=== PATIENT | female | born 1985 | race Caucasian/White ===

== ENCOUNTER 2016-07-23 11:29 | Inpatient (IN) | payer SELFPAY ==
[~2016-07-23] VITALS: Ht 152.4 cm; Wt 141.0 kg
[2016-07-23] MEDS ORDERED: morphine 4 MG/ML VIAL IV STA (13:40)
[2016-07-23] MEDS ORDERED: ONDANSETRON 4 MG INJ IV STA (13:40)
[2016-07-23] MEDS ORDERED: AZTREONAM 1 GM/NS (PMX) 50 ML IVPB ONE (14:00)
[2016-07-23] MEDS ORDERED: VANCOMYCIN 1 GM (PMX) 250 ML IVPB SCH (14:00)
[2016-07-23 14:28] LABS: HEMATOCRIT 39.5 % (37.0-47.0); HEMOGLOBIN 13.3 g/dl (12.0-16.0); MEAN CORPUSCULAR HEMOGLOBIN 29.2 pg (29.0-33.0); MEAN CORPUSCULAR HGB CONC 33.7 g/dl (32.0-37.0); MEAN CORPUSCULAR VOLUME 86.5 fl (82.0-101.0); MEAN PLATELET VOLUME 8.7 fl (7.4-10.4); PLATELET COUNT 193 10^3/UL (140-440); RED BLOOD COUNT 4.56 10^6/ul (4.20-5.40); RED CELL DISTRIBUTION WIDTH 14.3 % (11.5-14.5); UNCORRECTED WBC 22.2 10^3/ul (4.8-10.8); WHITE BLOOD COUNT 22.2 10^3/ul (4.8-10.8)
[2016-07-23 14:37] LABS: CONDITION 1; LH ANALYZER COMMENTS 1; SUSPECT 1
[2016-07-23 14:49] LABS: POTASSIUM 3.5 mmol/L (3.5-5.1)
[2016-07-23 14:52] LABS: CREATININE 3.14 mg/dl (0.44-1.00)
[2016-07-23 14:53] LABS: CALCIUM 8.2 mg/dl (8.4-10.2)
[2016-07-23] MEDS ORDERED: ACETAMINOPHEN 325 MG TAB PO PRN (15:30)
[2016-07-23] MEDS ORDERED: DIPHTH/TET/ACEL PERTUSS (ADULT) 0.5 ML VIAL IM* ONE (15:30)
[2016-07-23] MEDS ORDERED: ONDANSETRON 4 MG INJ IV PRN (15:30)
--- NOTE | 2016-07-23 15:49 | RADRPT ---
PROCEDURE: US Lower extremity Venous. CLINICAL INDICATION: Right leg pain TECHNIQUE: Multiple sonographic images of the right lower extremity deep venous system was obtaine d utilizing grayscale, color-flow, compressive sonography and doppler imaging with augmentation. Th e images were reviewed on a PACS workstation. COMPARISON: None. FINDINGS: There is very limited visualization of the right mid and distal superficial femoral vein due to chel ent body habitus. The right peroneal vein was not visualized. There is normal compressibility and flow within the right common femoral, proximal superficial femor al, posterior tibial and popliteal veins. RPTAT: AA IMPRESSION: No gross sonographic evidence for deep venous thrombosis. Limited visualization of the right mid and distal superficial femoral vein due to patient body habit us. Right peroneal vein not visualized. .Supa Soria MD, Date Time Electronically viewed and signed by .Supa Soria MD, MD on 07/23/2016 15:49 .S/
[2016-07-23 16:04] LABS: LYMPHOCYTES # 0.9 10^3/ul (0.8-2.9); MONOCYTE # 0.9 10^3/ul (0.3-0.9); NEUTROPHIL # 16.4 10^3/ul (1.6-7.5)
--- NOTE | 2016-07-23 16:52 | ERA ---
ER Documentation Chief Complaint Date/Time DATE: 07/23/16 TIME: 16:50 Chief Complaint right lower leg redness and swelling no trauma. no fevers HPI Patient is a 31-year-old female with no medical problems who presents with right leg redness and rash. The symptoms started 1 week ago after she cut the lateral side of her right leg. She started having redness around the area and then pain in her right inner thigh. She tried tramadol and ibuprofen. She had fever a few days ago but none today. She does not currently have a primary doctor. She has had no antibiotics for this as of yet. ROS All systems reviewed and are negative except as per history of present illness. Allergies Allergies: Coded Allergies: Amoxicillin (Verified Allergy, 07/23/16) PMhx/Soc Medical and Surgical Hx: pt denies Medical Hx, pt denies Surgical Hx Hx Alcohol Use: No Hx Substance Use: No Hx Tobacco Use: No Smoking Status: Never smoker FmHx Family History: diabetes Physical Exam Vitals Vital Signs Date Time Temp Pulse Resp B/P Pulse Ox O2 Delivery O2 Flow Rate FiO2 07/23/16 11:38 98.6 94 22 116/88 97 Physical Exam Const: Mild distress Head: Atraumatic Eyes: Normal Conjunctiva ENT: Normal External Ears, Nose and Mouth. Neck: Full range of motion..~ No meningismus. Resp: Clear to auscultation bilaterally Cardio: Regular rate and rhythm, no murmurs Abd: Soft, non tender, non distended. Normal bowel sounds Skin: Significant cellulitis of the right lower extremity with 2 areas of blister formation to the right lateral leg, warm to touch Back: No midline or flank tenderness Ext: No cyanosis, or edema Neur: Awake and alert Psych: Normal Mood and Affect Result Diagram: 07/23/16 1414 07/23/16 1414 Results 24 hrs Laboratory Tests Test 07/23/16 14:14 Anion Gap 21 Band Neutrophils % 18.0% Basophils # 10^3/ul Basophils % % Blood Urea Nitrogen 37mg/dl Calcium Level 8.2mg/dl Carbon Dioxide Level 19mmol/L Chloride Level 96mmol/L Creatinine 3.14mg/dl Eosinophils # 10^3/ul Eosinophils % % Glucose Level 100mg/dl Hematocrit 39.5% Hemoglobin 13.3g/dl Lymphocytes # 0.910^3/ul Lymphocytes % 4.0% Mean Corpuscular Hemoglobin 29.2pg Mean Corpuscular Hemoglobin Concent 33.7g/dl Mean Corpuscular Volume 86.5fl Mean Platelet Volume 8.7fl Monocytes # 0.910^3/ul Monocytes % 4.0% Neutrophils # 16.410^3/ul Neutrophils % 74.0% Nucleated Red Blood Cells # 10^3/ul Nucleated Red Blood Cells % /100WBC Platelet Count 40592^3/UL Potassium Level 3.5mmol/L Red Blood Count 4.5610^6/ul Red Cell Distribution Width 14.3% Sodium Level 132mmol/L White Blood Count 22.210^3/ul Current Medications Medications (Trade) Dose Ordered Sig/Deana Route PRN Reason Start Time Stop Time Status Last Admin Dose Admin Morphine Sulfate (morphine) 4 mg ONCE STAT IV 07/23/16 13:40 07/23/16 13:42 DC 07/23/16 14:23 Ondansetron HCl 4 mg 4 mg ONCE STAT IV 07/23/16 13:40 07/23/16 13:42 DC 07/23/16 14:23 Vancomycin HCl 250 ml @ 125 mls/hr ONCE IVPB 07/23/16 14:00 07/23/16 15:59 DC 07/23/16 15:44 Aztreonam (Azactam 1gm/NS (Pmx)) 50 ml @ 100 mls/hr ONCE ONCE IVPB 07/23/16 14:00 07/23/16 14:29 DC 07/23/16 14:24 Diphtheria/ Tetanus/Acell Pertussis (Adacel) 0.5 ml ONCE ONCE IM* 07/23/16 15:30 07/23/16 15:31 DC 07/23/16 15:45 Ondansetron HCl (Zofran Inj) 4 mg BRIDGE ORDER PRN IV NAUSEA AND/OR VOMITING 07/23/16 15:30 07/24/16 15:29 Acetaminophen (Tylenol Tab) 650 mg ER BRIDGE PRN PO MILD PAIN/FEVER 07/23/16 15:30 07/24/16 15:29 Procedures/MDM Ultrasound of the right lower extremity shows no obvious DVT per radiology. Patient is a 31-year-old female who presents with right lower extremity cellulitis. Ultrasound was negative for DVT. Her laboratory studies show acute renal failure as well. She has never been here before and does not have a primary doctor and therefore I will admit the patient to the panel team. I spoke with Dr. Dominguez. At this point the patient has normal vital signs and is otherwise well-appearing and I doubt sepsis. However given the significant cellulitis with blister formation I do believe that inpatient admission is appropriate. The patient will need IV antibiotics. The patient was given vancomycin and aztreonam as she has allergy to amoxicillin. Departure Diagnosis: Primary Impression: Cellulitis Qualified Code: L03.115 - Cellulitis of right lower extremity Additional Impressions: ARF (acute renal failure) Qualified Code: N17.9 - Acute renal failure, unspecified acute renal failure type Swelling Condition: MATT Gill MD Jul 23, 2016 16:52
[2016-07-23] MEDS ORDERED: VANCOMYCIN IV PER PHARMACY XX SCH (17:00)
[2016-07-23] MEDS ORDERED: NACL 0.9% 3 ML SYG IV SCH (17:00)
[2016-07-23] MEDS ORDERED: DOCUSATE SODIUM 100 MG CAP PO PRN (17:00)
[2016-07-23] MEDS ORDERED: HYDROCODONE/APAP (5/325) TAB PO PRN (17:00)
[2016-07-23] MEDS ORDERED: PIPER-TAZO 3.375 GM IV (PMX) 100 ML IVPB SCH (18:00)
--- NOTE | 2016-07-23 18:36 | RADRPT ---
PROCEDURE: Noncontrast CT examination of the right leg CLINICAL INDICATION: Lesion at the lateral right leg. TECHNIQUE: Noncontrast CT examination of the right leg, with axial, sagittal and coronal reformatt ed images. CTDI: 18.47 mGy and DLP: 988.33 mGy-cm. COMPARISON: Right lower extremity ultrasound dated today, earlier in the day. FINDINGS: Fluid collection projects over the mid to lower lateral right leg, measuring 53 x 49 x 19 mm, otherw ise nonspecific. This may arise within the scan. There is no evident abscess. This fluid collecti on does not involve the subcutaneous tissues, although the subcutaneous tissues demonstrate edema an d scattered mild fluid from the popliteal fossa to the ankle. Partially visualized small right knee joint effusion. There is edema over the dorsum of the foot. No acute fracture or dislocation. IMPRESSION: 1. Fluid collection projects over the mid to lower lateral right leg, measuring 53 mm. 2. This appears to arise from the scan, and does not involve the subcutaneous tissues. 3. There is no evident abscess. 4. Nevertheless, the subcutaneous tissues over the right leg demonstrate edema and mild scattered f luid. RPTAT: UU Physician Oneil Date Time Electronically viewed and signed by Physician Oneil on 07/23/2016 18:36 RS/
[2016-07-23 18:51] VITALS: TEMP 97.5
[2016-07-23 19:34] VITALS: BP 117/54; RESP 18
[2016-07-23] MEDS ORDERED: VANCOMYCIN 1 GM in NS 250 ML IVPB ONE (20:00)
[2016-07-23] MEDS: HEPARIN 5,000 UNIT/0.5 ML SYG SC SCH (21:31)
[2016-07-23] MEDS: SOD CHLORIDE 0.45% 1,000 ML IV SCH (21:40)
[2016-07-23] MEDS: morphine 2 MG INJ IV PRN (23:03)
[2016-07-24] MEDS: AZTREONAM 0.5 GM in SOD CHLORIDE 0.9% 50 ML IV SCH ×2 (00:09→09:00)
[2016-07-24] MEDS: ACETAMINOPHEN 325 MG TAB PO PRN ×2 (00:09→08:25)
[2016-07-24] MEDS: SOD CHLORIDE 0.45% 1,000 ML IV SCH ×2 (00:49→08:23)
--- NOTE | 2016-07-24 03:14 | HP ---
DATE OF ADMISSION: 07/23/2016 CHIEF COMPLAINT: Right leg pain. HISTORY OF PRESENT ILLNESS: The patient is a 31-year-old female with a history of morbid obesity, o therwise no medical history. The patient presents with several days of progressively worsening righ t lower extremity pain and redness as well as swelling. The patient states that she noticed a cut o n her leg a few days ago. She does not know how she got the cut. She denies any falls or spider bi isaak. She states that since then she has been getting progressively worsening redness and swelling a nd it has become difficult to ambulate. She also reports having some pustules in the right lower ex tremity. She denies having any prior episodes of such symptoms in the past. She has no other compl aints at this time. PAST MEDICAL HISTORY: Morbid obesity, otherwise negative. PAST SURGICAL HISTORY: Denies. HOME MEDICATIONS: None reported. ALLERGIES: NO KNOWN DRUG ALLERGIES. FAMILY HISTORY: Multiple family members with cancer. SOCIAL HISTORY: Denies any alcohol, tobacco, or drug abuse. REVIEW OF SYSTEMS: A 12-point review of systems negative except for that as in HPI. PHYSICAL EXAMINATION: VITAL SIGNS: Temp is 98.6, pulse is 94, respiratory rate is 20, BP 116/88, saturation is 97% on vera m air. GENERAL: No acute distress, alert and oriented. HEENT: Normocephalic, atraumatic. CHEST: Clear to auscultation. CARDIOVASCULAR: Regular rate and rhythm. ABDOMEN: Nondistended, nontender, soft, obese. EXTREMITIES: No clubbing, cyanosis, or edema in the left lower extremity. Right extremity is notab le for erythema and tenderness to palpation with blisters noted as well as multiple scratch penn. LABORATORIES: White count is 22.2, hemoglobin is 15.3, platelets are 193. Chemistry: Sodium is 13 2, chloride is 96, carbon dioxide 19, anion gap is 21, BUN is 37, creatinine is 2.14, calcium is 8.2 . DIAGNOSTICS: Extremity venous study shows no gross evidence of DVT. ASSESSMENT AND PLAN: 1. Sepsis secondary to right lower extremity cellulitis. Start the patient on broad spectrum antib iotics. We will obtain an ID consultation with Dr. Love. We will check a lactic acid level. We will give IV fluids and we will get a CT scan of the right lower extremity to rule out any abscess. 2. Acute versus chronic kidney disease. The patient's baseline creatinine is not known. The patie nt has an elevated creatinine, could be secondary to underlying sepsis. We will treat with IV fluid s. We will get a renal consultation. We will follow up on creatinine in the a.m. 3. Anion gap metabolic acidosis, possibly secondary to lactic acidosis from sepsis. We will check a lactic acid level. 4. Hyponatremia, possibly secondary to dehydration. We will treat with IV fluids. 5. Morbid obesity. The patient will need to be advised on lifestyle changes when condition improve s. 6. Prophylaxis. Heparin. Dictated By: EDI DUFFY MD BS/NTS Conf#: [id number] DID#: [id number] CC: BRYANT LOVE MD; RYAN BROWN;*End*
[2016-07-24 06:55] LABS: ALBUMIN 2.7 g/dl (3.3-4.9)
[2016-07-24 06:56] LABS: CHLORIDE 95 mmol/L (97-110); POTASSIUM 3.3 mmol/L (3.5-5.1); SODIUM 131 mmol/L (135-144)
[2016-07-24 06:58] LABS: ANION GAP 16 (8-16); CARBON DIOXIDE 23 mmol/L (21-31); CHOLESTEROL 129 mg/dl (100-200); CREATININE 2.96 mg/dl (0.44-1.00)
[2016-07-24 06:59] LABS: ALANINE AMINOTRANSFERASE 31 IU/L (13-69); ALBUMIN/GLOBULIN RATIO 0.77; ALKALINE PHOSPHATASE 113 IU/L (42-121); ASPARTATE AMINO TRANSFERASE 32 IU/L (15-46); BLOOD UREA NITROGEN 38 mg/dl (7-20); GLUCOSE 78 mg/dl (70-220); PHOSPHORUS 3.4 mg/dl (2.5-4.9); TOTAL PROTEIN 6.2 g/dl (6.1-8.1); TRIGLYCERIDES 208 mg/dl (0-149)
[2016-07-24 07:00] LABS: CALCIUM 7.6 mg/dl (8.4-10.2); CHOL/HDL RATIO 9.9 RATIO; HDL CHOLESTEROL 13 mg/dl (34-82); MAGNESIUM 1.6 mg/dl (1.7-2.5)
--- NOTE | 2016-07-24 07:15 | CONS ---
DATE OF ADMISSION: 07/23/2016 DATE OF CONSULTATION: 07/23/2016 TYPE OF CONSULTATION: Infectious Disease REASON FOR CONSULTATION: Antibiotic management. HISTORY OF PRESENT ILLNESS: The patient is a 31-year-old female with no previous medical history of significance who comes in now with right lower extremity redness and swelling. Her symptoms began 1 week ago after she cut the lateral side of her right leg. She started having redness around the a keya and then pain in the right inner thigh. She tried tramadol and ibuprofen. She had fever a few days ago. She has had no antibiotics for this at this time. ALLERGIES: SHE IS ALLERGIC TO AMOXICILLIN. PAST MEDICAL HISTORY: Operations as outlined. FAMILY HISTORY: Noncontributory. She does have a history of diabetes in the family. SOCIAL HISTORY: She does not smoke, drink or abuse drugs. ALLERGIES: NONE TO PENICILLIN, SULFA OR FOODS. MEDICATIONS: Per chart. REVIEW OF SYSTEMS: As per HPI. PHYSICAL EXAMINATION: GENERAL: The patient is a well-developed, well-nourished female, alert, responsive, in no acute dis tress. She has some mild distress. VITAL SIGNS: Stable. She is afebrile. SKIN: Without generalized rash. HEENT: Within normal limits. NECK: Supple. LYMPH NODES: None palpable. CHEST: Decreased breath sounds at the bases. HEART: Without murmur or gallop. ABDOMEN: Soft, nontender, without organosplenomegaly or masses. EXTREMITIES: Without cyanosis, clubbing, or edema. She has right lower extremity has 2 areas of bl ister formation on the lateral aspect of the right lower extremity. It is warm to the touch and has significant cellulitis. RECTAL AND GENITAL: Deferred. NEUROLOGIC: No focal neurological abnormalities. ANCILLARY LABORATORY DATA: White count 22.2, H and H of 13.3 and 39.5, platelet count 193,000. BUN and creatinine 37/3.14. She was started on vancomycin and also received aztreonam and piperacillin. She is now on vancomyci n and aztreonam. As noted, SHE IS ALLERGIC TO AMOXICILLIN. IMAGING STUDIES: A CT scan of the right lower extremity shows a fluid collection projects over the mid to lower lateral right leg measuring 53 mm which is about 2 inches. This appears to arise from the skin, does not involve the subcutaneous tissues. There is no evident abscess, but there is albert a and mild scattered fluid. IMPRESSION AND PLAN: I concur with the use of vancomycin and aztreonam. She should have her right leg elevated. I will dictate my findings to the hospitalist. Dictated By: BRYANT LOVE MD, JD/HANNY Conf#: [id number] DID#: [id number]
[2016-07-24 07:24] VITALS: BP 139/85; RESP 18
[2016-07-24 07:29] LABS: T3 UPTAKE 48.6 % (23.5-40.5)
[2016-07-24 08:09] VITALS: BP 119/58; RESP 18
[2016-07-24] MEDS: HEPARIN 5,000 UNIT/0.5 ML SYG SC SCH ×2 (08:24→20:13)
[2016-07-24] MEDS: morphine 2 MG INJ IV PRN (08:26)
--- NOTE | 2016-07-24 09:39 | CONS ---
Date/Time of Note Date/Time of Note DATE: 07/24/16 TIME: 09:38 Consultation Date/Type/Reason Admit Date/Time Jul 23, 2016 at 15:05 Date of Consultation: Jul 24, 2016 Social History Smoking Status: Current every day smoker Exam/Review of Systems Vital Signs Vitals Vital Signs Date Time Temp Pulse Resp B/P Pulse Ox O2 Delivery O2 Flow Rate FiO2 07/24/16 08:09 98.1 96 18 119/58 96 07/23/16 18:51 Room Air Intake and Output 07/23/16 07/23/16 07/24/16 15:00 23:00 07:00 Intake Total 1100 ml Balance 1100 ml Results Result Diagram: 07/23/16 1414 07/24/16 0539 Results 24 hrs Laboratory Tests Test 07/23/16 14:14 07/23/16 20:46 07/24/16 05:39 07/24/16 07:49 Anion Gap 21 H 16 Band Neutrophils % 18.0 H Basophils # Basophils % Blood Urea Nitrogen 37 H 38 H Calcium Level 8.2 L 7.6 L Carbon Dioxide Level 19 L 23 Chloride Level 96 L 95 L Creatinine 3.14 H 2.96 H Eosinophils # Eosinophils % Glucose Level 100 78 Hematocrit 39.5 Hemoglobin 13.3 Lymphocytes # 0.9 Lymphocytes % 4.0 L Mean Corpuscular Hemoglobin 29.2 Mean Corpuscular Hemoglobin Concent 33.7 Mean Corpuscular Volume 86.5 Mean Platelet Volume 8.7 Monocytes # 0.9 Monocytes % 4.0 Neutrophils # 16.4 H Neutrophils % 74.0 Nucleated Red Blood Cells # Nucleated Red Blood Cells % Platelet Count 193 Potassium Level 3.5 3.3 L Red Blood Count 4.56 Red Cell Distribution Width 14.3 Sodium Level 132 L 131 L White Blood Count 22.2 H Lactic Acid Level 1.3 1.1 Alanine Aminotransferase (ALT/SGPT) 31 Albumin 2.7 L Albumin/Globulin Ratio 0.77 Alkaline Phosphatase 113 Aspartate Amino Transf (AST/SGOT) 32 Cholesterol Level 129 Cholesterol/HDL Ratio 9.9 Direct Bilirubin 0.00 Free Thyroxine Index 2.77 Globulin 3.50 H HDL Cholesterol 13 L HIV (1&2) Antibody NEGATIVE Hemoglobin A1c 5.2 Indirect Bilirubin 0.0 LDL Cholesterol, Calculated 74 Magnesium Level 1.6 L Phosphorus Level 3.4 Thyroxine (T4) 5.7 Total Bilirubin 0.0 L Total Protein 6.2 Triglycerides Level 208 H Triiodothyronine (T3) Uptake 48.6 H Medications Medications Current Medications Sodium Chloride (1/2 NS) 1,000 ml @ 125 mls/hr Q8H IV Last administered on 07/24 08:23; Admin Dose 125 MLS/HR; Start 07/23/16 at 16:49 Ondansetron HCl (Zofran Inj) 4 mg Q6H PRN IV NAUSEA AND/OR VOMITING; Start 07/23 at 17:00 Acetaminophen (Tylenol Tab) 650 mg Q6H PRN PO PAIN LEVEL 1-3 OR FEVER Last administered on 07/24/16 08:25; Admin Dose 650 MG; Start 07/23/16 at 17:00 Acetaminophen/ Hydrocodone Bitart ([place] (5/325)) 1 tab Q6H PRN PO MODERATE PAIN LEVEL 4-6 Last administered on 07/23/16 19:43; Admin Dose 1 TAB; Start 07/23 at 17:00 Morphine Sulfate (morphine) 2 mg Q4H PRN IV SEVERE PAIN LEVEL 7-10 Last administered on 07/24/16 08:26; Admin Dose 2 MG; Start 07/23/16 at 17:00 Docusate Sodium (Colace) 100 mg Q12H PRN PO CONSTIPATION; Start 07/23/16 at 17: 00 Zolpidem Tartrate (Ambien) 5 mg QHS PRN PO SLEEP; Start 07/23/16 at 17:00 Heparin Sodium (Porcine) 5000 unit 5,000 unit Q12 SC Last administered on 08:24; Admin Dose 5,000 UNIT; Start 07/23/16 at 21:00 Aztreonam/Sodium Chloride (Azactam/NS) 50 ml @ 100 mls/hr Q12 IV Last administered on 07/24/16 00:09; Admin Dose 100 MLS/HR; Start 07/23/16 at 23:00 Influenza Virus Vaccine (Fluzone) 0.5 ml ONCE ONCE IM* ; Start 07/25/16 at 09:00 ; Stop 07/25/16 at 09:01 ARIANNA CALDWELL MD Jul 24, 2016 09:39
--- NOTE | 2016-07-24 09:46 | PN ---
Date/Time of Note Date/Time of Note DATE: 07/24/16 TIME: 09:34 Assessment/Plan VTE Prophylaxis VTE Prophylaxis Intervention: heparin Lines/Catheters IV Catheter Type (from Nrs): Peripheral IV Assessment/Plan Assessment/Plan PROBLEMS: Sepsis secondary to right lower extremity cellulitis: No abscess on CT Acute renal insufficiency with likely underlying chronic kidney disease: improving Anion gap metabolic acidosis 2/2 #1 : resolved Morbid obesity BMI 60 Dyslipidemia Hypomagnesemia Hypocalcemia Hypokalemia Hyponatremia 2/2 dehydration from sepsis PLAN: Replace lytes Change IVF to NS Continue abx per ID / appreciate review Dietary consult / low cholesterol low fat and calorie controlled diet Fish oil for dyslipidemia Avoid Nephrotoxins if possible / Renally dose all meds / Serial labs / ? Nephrology consult Prophylaxis. Heparin. Subjective 24 Hr Interval Summary Free Text/Dictation Patient seen and examined. no new complaints Exam/Review of Systems Vital Signs Vitals Vital Signs Date Time Temp Pulse Resp B/P Pulse Ox O2 Delivery O2 Flow Rate FiO2 07/24/16 08:09 98.1 96 18 119/58 96 07/23/16 18:51 Room Air Intake and Output 07/23/16 07/23/16 07/24/16 15:00 23:00 07:00 Intake Total 1100 ml Balance 1100 ml Exam GENERAL: No acute distress, alert and oriented. HEENT: Normocephalic, atraumatic. CHEST: Clear to auscultation. CARDIOVASCULAR: Regular rate and rhythm. ABDOMEN: Nondistended, nontender, soft, obese. EXTREMITIES: No clubbing, cyanosis, or edema in the left lower extremity. Right extremity is notable for erythema and tenderness to palpation with blisters noted as well as multiple scratch penn. Results Result Diagram: 07/23/16 1414 07/24/16 0539 Results 24 hrs Laboratory Tests Test 07/23/16 14:14 07/23/16 20:46 07/24/16 05:39 07/24/16 07:49 Anion Gap 21 H 16 Band Neutrophils % 18.0 H Basophils # Basophils % Blood Urea Nitrogen 37 H 38 H Calcium Level 8.2 L 7.6 L Carbon Dioxide Level 19 L 23 Chloride Level 96 L 95 L Creatinine 3.14 H 2.96 H Eosinophils # Eosinophils % Glucose Level 100 78 Hematocrit 39.5 Hemoglobin 13.3 Lymphocytes # 0.9 Lymphocytes % 4.0 L Mean Corpuscular Hemoglobin 29.2 Mean Corpuscular Hemoglobin Concent 33.7 Mean Corpuscular Volume 86.5 Mean Platelet Volume 8.7 Monocytes # 0.9 Monocytes % 4.0 Neutrophils # 16.4 H Neutrophils % 74.0 Nucleated Red Blood Cells # Nucleated Red Blood Cells % Platelet Count 193 Potassium Level 3.5 3.3 L Red Blood Count 4.56 Red Cell Distribution Width 14.3 Sodium Level 132 L 131 L White Blood Count 22.2 H Lactic Acid Level 1.3 1.1 Alanine Aminotransferase (ALT/SGPT) 31 Albumin 2.7 L Albumin/Globulin Ratio 0.77 Alkaline Phosphatase 113 Aspartate Amino Transf (AST/SGOT) 32 Cholesterol Level 129 Cholesterol/HDL Ratio 9.9 Direct Bilirubin 0.00 Free Thyroxine Index 2.77 Globulin 3.50 H HDL Cholesterol 13 L HIV (1&2) Antibody NEGATIVE Hemoglobin A1c 5.2 Indirect Bilirubin 0.0 LDL Cholesterol, Calculated 74 Magnesium Level 1.6 L Phosphorus Level 3.4 Thyroxine (T4) 5.7 Total Bilirubin 0.0 L Total Protein 6.2 Triglycerides Level 208 H Triiodothyronine (T3) Uptake 48.6 H Medications Medications Current Medications Sodium Chloride (1/2 NS) 1,000 ml @ 125 mls/hr Q8H IV Last administered on 07/24 08:23; Admin Dose 125 MLS/HR; Start 07/23/16 at 16:49 Ondansetron HCl (Zofran Inj) 4 mg Q6H PRN IV NAUSEA AND/OR VOMITING; Start 07/23 at 17:00 Acetaminophen (Tylenol Tab) 650 mg Q6H PRN PO PAIN LEVEL 1-3 OR FEVER Last administered on 07/24/16 08:25; Admin Dose 650 MG; Start 07/23/16 at 17:00 Acetaminophen/ Hydrocodone Bitart ([place] (5/325)) 1 tab Q6H PRN PO MODERATE PAIN LEVEL 4-6 Last administered on 07/23/16 19:43; Admin Dose 1 TAB; Start 07/23 at 17:00 Morphine Sulfate (morphine) 2 mg Q4H PRN IV SEVERE PAIN LEVEL 7-10 Last administered on 07/24/16 08:26; Admin Dose 2 MG; Start 07/23/16 at 17:00 Docusate Sodium (Colace) 100 mg Q12H PRN PO CONSTIPATION; Start 07/23/16 at 17: 00 Zolpidem Tartrate (Ambien) 5 mg QHS PRN PO SLEEP; Start 07/23/16 at 17:00 Heparin Sodium (Porcine) 5000 unit 5,000 unit Q12 SC Last administered on 08:24; Admin Dose 5,000 UNIT; Start 07/23/16 at 21:00 Aztreonam/Sodium Chloride (Azactam/NS) 50 ml @ 100 mls/hr Q12 IV Last administered on 07/24/16 00:09; Admin Dose 100 MLS/HR; Start 07/23/16 at 23:00 Influenza Virus Vaccine (Fluzone) 0.5 ml ONCE ONCE IM* ; Start 07/25/16 at 09:00 ; Stop 07/25/16 at 09:01 Procedures Procedures PROCEDURE: Noncontrast CT examination of the right leg CLINICAL INDICATION: Lesion at the lateral right leg. TECHNIQUE: Noncontrast CT examination of the right leg, with axial, sagittal and coronal reformatted images. CTDI: 18.47 mGy and DLP: 988.33 mGy-cm. COMPARISON: Right lower extremity ultrasound dated today, earlier in the day. FINDINGS: Fluid collection projects over the mid to lower lateral right leg, measuring 53 x 49 x 19 mm, otherwise nonspecific. This may arise within the scan. There is no evident abscess. This fluid collection does not involve the subcutaneous tissues, although the subcutaneous tissues demonstrate edema and scattered mild fluid from the popliteal fossa to the ankle. Partially visualized small right knee joint effusion. There is edema over the dorsum of the foot. No acute fracture or dislocation. IMPRESSION: 1. Fluid collection projects over the mid to lower lateral right leg, measuring 53 mm. 2. This appears to arise from the scan, and does not involve the subcutaneous tissues. 3. There is no evident abscess. 4. Nevertheless, the subcutaneous tissues over the right leg demonstrate edema and mild scattered fluid. RPTAT: UU Physician Oneil Date Time Electronically viewed and signed by Physician Oneil on 07/23/2016 18:36 PROCEDURE: US Lower extremity Venous. CLINICAL INDICATION: Right leg pain TECHNIQUE: Multiple sonographic images of the right lower extremity deep venous system was obtained utilizing grayscale, color-flow, compressive sonography and doppler imaging with augmentation. The images were reviewed on a PACS workstation. COMPARISON: None. FINDINGS: There is very limited visualization of the right mid and distal superficial femoral vein due to patient body habitus. The right peroneal vein was not visualized. There is normal compressibility and flow within the right common femoral, proximal superficial femoral, posterior tibial and popliteal veins. RPTAT: AA IMPRESSION: No gross sonographic evidence for deep venous thrombosis. Limited visualization of the right mid and distal superficial femoral vein due to patient body habitus. Right peroneal vein not visualized. .Supa Soria MD, MD Date Time Electronically viewed and signed by .Supa Soria MD, MD on 07/23/2016 15: 49 .S/ CC: MATT SAINZ MD, BOLATITO M. Jul 24, 2016 09:46
[2016-07-24] MEDS ORDERED: MAGNESIUM SULFATE 2 GM/50 ML 50 ML IVPB ONE (10:00)
[2016-07-24 10:11] LABS: HEMATOCRIT 34.5 % (37.0-47.0); HEMOGLOBIN 11.5 g/dl (12.0-16.0); MEAN CORPUSCULAR HEMOGLOBIN 28.9 pg (29.0-33.0); MEAN CORPUSCULAR HGB CONC 33.3 g/dl (32.0-37.0); MEAN CORPUSCULAR VOLUME 86.7 fl (82.0-101.0); MEAN PLATELET VOLUME 11.1 fl (7.4-10.4); PLATELET COUNT 185 10^3/UL (140-440); RED BLOOD COUNT 3.98 10^6/ul (4.20-5.40); RED CELL DISTRIBUTION WIDTH 14.2 % (11.5-14.5); UNCORRECTED WBC 17.4 10^3/ul (4.8-10.8); WHITE BLOOD COUNT 17.4 10^3/ul (4.8-10.8)
[2016-07-24 10:15] LABS: MONOCYTE # 0.2 10^3/ul (0.3-0.9); NEUTROPHIL # 13.6 10^3/ul (1.6-7.5)
[2016-07-24] MEDS ORDERED: morphine 2 MG INJ IV ONE (11:00)
[2016-07-24] MEDS: SOD CHLORIDE 0.9% 1,000 ML IV SCH ×2 (11:17→20:08)
[2016-07-24] MEDS: POTASSIUM CHLORIDE (SR) 20 MEQ TAB PO SCH ×2 (11:19→14:46)
[2016-07-24] MEDS: FISH OIL 1,000 MG CAP PO SCH ×2 (11:20→20:07)
[2016-07-24] MEDS: HYDROCODONE/APAP (7.5/325) TAB PO PRN ×2 (11:20→18:33)
[2016-07-24] MEDS: FAMOTIDINE 20 MG TAB PO SCH (14:46)
[2016-07-24 20:29] VITALS: BP 118/58; RESP 16
[2016-07-24] MEDS: LEVOFLOXACIN 250MG/D5W (PMX) 50 ML IVPB SCH (22:00)
[2016-07-24] MEDS: metroNIDAZOLE 500 MG TAB PO SCH (22:00)
[2016-07-25] MEDS: HYDROCODONE/APAP (7.5/325) TAB PO PRN ×4 (02:18→17:54)
[2016-07-25] MEDS ORDERED: VANCOMYCIN 2 GM in SOD CHLORIDE 0.9% 500 ML IVPB SCH (05:00)
[2016-07-25] MEDS: metroNIDAZOLE 500 MG TAB PO SCH ×3 (05:40→21:20)
--- NOTE | 2016-07-25 06:05 | PN ---
DATE: 07/24/2016 SUBJECTIVE: No acute changes. The patient is alert, lying comfortably in bed. She is in no distre ss, afebrile, complaining of right lower extremity pain. LABORATORY DATA: WBC today 17.4, H and H 11.5 and 34.5, platelets 185, neutrophils 78, BUN 38, crea tinine 2.96. DIAGNOSTICS: Lower extremity CT revealed no evidence of abscess but fluid collection over the mid t o lower lateral right leg. Ultrasound of the right lower extremity revealed no evidence of DVT. ANTIMICROBIALS: The patient is on IV vancomycin and aztreonam. OBJECTIVE: GENERAL: This is a morbidly obese, well-developed, middle-aged white woman who is lying comfortably in bed. HEENT: Head atraumatic, normocephalic. Sclerae anicteric. Buccal mucosa pink. NECK: Obese. CHEST: Rise symmetrical. Breath sounds clear. HEART: S1, S2. ABDOMEN: Soft, bowel tones present. EXTREMITIES: With right lower extremity edema, blistering. ASSESSMENT: 1. Right lower extremity cellulitis, possible abscess. 2. Morbid obesity. 3. Systemic inflammatory response syndrome with low grade fevers and leukocytosis. 4. Acute kidney injury, possible chronic kidney disease. PLAN: We are going to change aztreonam to oral Levaquin and add Flagyl for anaerobic coverage. We will send blood cultures and urine culture and try to send culture of any drainage that she has from right lower extremity. The patient needs to be evaluated by podiatry. We will keep her right lowe r extremity elevated and also swab her nares for MRSA. Continue pain management. The above was dis cussed with patient at bedside. Dictated By: JEFF JENKINS JAVA LEAD for BRYANT LOVE MD NI/NTS Conf#: [id number] DID#: [id number]
[2016-07-25 08:16] VITALS: BP 97/41; RESP 23
[2016-07-25] MEDS: FISH OIL 1,000 MG CAP PO SCH ×2 (08:28→21:20)
[2016-07-25] MEDS: HEPARIN 5,000 UNIT/0.5 ML SYG SC SCH ×2 (08:34→21:43)
--- NOTE | 2016-07-25 08:47 | CONS ---
Date/Time of Note Date/Time of Note DATE: 07/25/16 TIME: 08:45 Consult Date/Type/Reason Admit Date/Time Jul 23, 2016 at 15:05 Initial Consult Date 07/24/16 Type of Consultation: nephro Subjective feels better good uop Objective Vital Signs Date Time Temp Pulse Resp B/P Pulse Ox O2 Delivery O2 Flow Rate FiO2 07/25/16 08:16 99.2 96 23 97/41 97 07/23/16 18:51 Room Air Intake and Output 07/24/16 07/24/16 07/25/16 15:00 23:00 07:00 Intake Total 915 ml 3870 ml 1100 ml Balance 915 ml 3870 ml 1100 ml Results/Medications Result Diagram: 07/24/16 0539 07/24/16 0539 Medications Current Medications Ondansetron HCl (Zofran Inj) 4 mg Q6H PRN IV NAUSEA AND/OR VOMITING; Start 07/23 at 17:00 Acetaminophen (Tylenol Tab) 650 mg Q6H PRN PO PAIN LEVEL 1-3 OR FEVER Last administered on 07/24/16 08:25; Admin Dose 650 MG; Start 07/23/16 at 17:00 Docusate Sodium (Colace) 100 mg Q12H PRN PO CONSTIPATION; Start 07/23/16 at 17: 00 Zolpidem Tartrate (Ambien) 5 mg QHS PRN PO SLEEP; Start 07/23/16 at 17:00 Heparin Sodium (Porcine) (Heparin (5000 Units/0.5 ml)) 5,000 unit Q12 SC Last administered on 07/25/16 08:34; Admin Dose 5,000 UNIT; Start 07/23/16 at 21:00 Influenza Virus Vaccine (Fluzone) 0.5 ml ONCE ONCE IM* ; Start 07/25/16 at 09:00 ; Stop 07/25/16 at 09:01 Fish Oil 1000 mg 1,000 mg BID PO Last administered on 07/25/16 08:28; Admin Dose 1,000 MG; Start 07/24/16 at 10:00 Sodium Chloride 1,000 ml @ 80 mls/hr [id number] IV Last administered on 07/24/16 20:08; Admin Dose 80 MLS/HR; Start 07/24/16 at 10:00 Vancomycin HCl/ Sodium Chloride (Vancocin/NS) 500 ml @ 125 mls/hr Q48H IVPB Last administered on 07/25/16 05:40; Admin Dose 125 MLS/HR; Start 07/25/16 at 05: 00 Morphine Sulfate (morphine) 4 mg Q4H PRN IV SEVERE PAIN LEVEL 7-10; Start at 13:00 Acetaminophen/ Hydrocodone Bitart ([place] (7.5-325)) 1 tab Q4H PRN PO PAIN LEVEL 4-6 Last administered on 07/25/16 08:28; Admin Dose 1 TAB; Start 07/24/16 at 11:00 Famotidine 20 mg 20 mg Q24H PO Last administered on 07/24/16 14:46; Admin Dose 20 MG; Start 07/24/16 at 14:00 Levofloxacin/ Dextrose (Levaquin 250 Mg/ D5W 50 ml (Pmx)) 50 ml @ 50 mls/hr Q24H IVPB Last administered on 07/24/16 22:00; Admin Dose 50 MLS/HR; Start 07/24 at 19:30 Metronidazole (Flagyl) 500 mg Q8 PO Last administered on 07/25/16 05:40; Admin Dose 500 MG; Start 07/24/16 at 22:00 Assessment/Plan Chief Complaint/Hosp Course 1. renal Failure- likely vasomotor nephropathy, component of NSaids, cont to improve, watch lytes, volume status, cont ivf, adjust meds. -awaiting urine lytes to calculate FeNa. 2. cellulitis- on iv abx, dose adjusted. Problems: ARIANNA CALDWELL MD Jul 25, 2016 08:46
[2016-07-25] MEDS ORDERED: INFLUENZA VIRUS VACCINE 0.5 ML (DISPENSING) IM* ONE (09:00)
[2016-07-25] MEDS: ACETAMINOPHEN 325 MG TAB PO PRN (10:27)
[2016-07-25] MEDS: SOD CHLORIDE 0.9% 1,000 ML IV SCH ×3 (11:00→23:30)
[2016-07-25] MEDS: NYSTATIN 30 GM POWDER BTL TOP SCH ×2 (12:30→21:21)
[2016-07-25] MEDS: FAMOTIDINE 20 MG TAB PO SCH (13:35)
[2016-07-25 14:17] LABS: BASOPHILS % 0.2 % (0.0-2.0); HEMATOCRIT 32.1 % (37.0-47.0); HEMOGLOBIN 10.8 g/dl (12.0-16.0); LYMPHOCYTES # 0.9 10^3/ul (0.8-2.9); LYMPHOCYTES % 5.2 % (15.0-51.0); MEAN CORPUSCULAR HEMOGLOBIN 29.1 pg (29.0-33.0); MEAN CORPUSCULAR HGB CONC 33.7 g/dl (32.0-37.0); MEAN CORPUSCULAR VOLUME 86.6 fl (82.0-101.0); MEAN PLATELET VOLUME 8.9 fl (7.4-10.4); MONOCYTE # 0.7 10^3/ul (0.3-0.9); MONOCYTES % 4.2 % (0.0-11.0); NEUTROPHIL # 15.7 10^3/ul (1.6-7.5); NEUTROPHILS % 90.4 % (39.0-77.0); PLATELET COUNT 198 10^3/UL (140-440); RED BLOOD COUNT 3.71 10^6/ul (4.20-5.40); RED CELL DISTRIBUTION WIDTH 15.4 % (11.5-14.5); UNCORRECTED WBC 17.3 10^3/ul (4.8-10.8); WHITE BLOOD COUNT 17.3 10^3/ul (4.8-10.8)
[2016-07-25 14:19] LABS: CONDITION 1; LH ANALYZER COMMENTS 1
[2016-07-25 14:24] LABS: POTASSIUM 3.4 mmol/L (3.5-5.1)
[2016-07-25 14:27] LABS: CALCIUM 7.9 mg/dl (8.4-10.2); CREATININE 2.36 mg/dl (0.44-1.00)
--- NOTE | 2016-07-25 18:21 | PN ---
Date/Time of Note Date/Time of Note DATE: 07/25/16 TIME: 18:20 Assessment/Plan VTE Prophylaxis VTE Prophylaxis Intervention: heparin Lines/Catheters IV [facility] Peripheral IV Urinary Cath still in place: No Assessment/Plan Assessment/Plan PROBLEMS: Sepsis secondary to right lower extremity cellulitis: No abscess on CT: improving Acute renal insufficiency with likely underlying chronic kidney disease: improving Anion gap metabolic acidosis 2/ #1 : resolved Morbid obesity BMI 60 Dyslipidemia Hypomagnesemia Hypocalcemia Hyponatremia Raiza vaginitis PLAN: Replace lytes Nephrology managing renal fxn / appreciate input Continue abx per ID / appreciate review / f/u cultures Dietary consult / low cholesterol low fat and calorie controlled diet Continue Fish oil for dyslipidemia Add nystatin and miconazole to regimen Avoid Nephrotoxins if possible / Renally dose all meds / Serial labs Prophylaxis. Heparin. Subjective 24 Hr Interval Summary Free Text/Dictation still with significant pain R leg c/o inner thigh rash and vulval itching Exam/Review of Systems Vital Signs Vitals Vital Signs Date Time Temp Pulse Resp B/P Pulse Ox O2 Delivery O2 Flow Rate FiO2 07/25/16 08:16 99.2 96 23 97/41 97 07/23/16 18:51 Room Air Intake and Output 07/24/16 07/24/16 07/25/16 14:59 22:59 06:59 Intake Total 915 ml 3820 ml 1150 ml Balance 915 ml 3820 ml 1150 ml Exam GENERAL: No acute distress, alert and oriented. HEENT: Normocephalic, atraumatic. CHEST: Clear to auscultation. CARDIOVASCULAR: Regular rate and rhythm. ABDOMEN: Nondistended, nontender, soft, obese. EXTREMITIES: No clubbing, cyanosis, or edema in the left lower extremity. Right extremity is notable for erythema and tenderness to palpation with blisters noted as well as multiple scratch penn. GENITOURINARY: macular erythematous rash on inner thigh and vulva Results Result Diagram: 07/25/16 1350 07/25/16 1350 Results 24 hrs Laboratory Tests Test 07/25/16 13:50 Anion Gap 10 # Basophils # 0.0 Basophils % 0.2 Blood Morphology Comment Blood Urea Nitrogen 31 H Calcium Level 7.9 L Carbon Dioxide Level 22 Chloride Level 101 Creatinine 2.36 H Eosinophils # 0.0 Eosinophils % 0.0 Glucose Level 95 Hematocrit 32.1 L Hemoglobin 10.8 L Lymphocytes # 0.9 Lymphocytes % 5.2 L Mean Corpuscular Hemoglobin 29.1 Mean Corpuscular Hemoglobin Concent 33.7 Mean Corpuscular Volume 86.6 Mean Platelet Volume 8.9 Monocytes # 0.7 Monocytes % 4.2 Neutrophils # 15.7 H Neutrophils % 90.4 H Nucleated Red Blood Cells # 0.0 Nucleated Red Blood Cells % 0.0 Platelet Count 198 Potassium Level 3.4 L Red Blood Count 3.71 L Red Cell Distribution Width 15.4 H Sodium Level 130 L White Blood Count 17.3 H Medications Medications Current Medications Ondansetron HCl (Zofran Inj) 4 mg Q6H PRN IV NAUSEA AND/OR VOMITING; Start 07/23 at 17:00 Acetaminophen (Tylenol Tab) 650 mg Q6H PRN PO PAIN LEVEL 1-3 OR FEVER Last administered on 07/25/16 10:27; Admin Dose 650 MG; Start 07/23/16 at 17:00 Docusate Sodium (Colace) 100 mg Q12H PRN PO CONSTIPATION; Start 07/23/16 at 17: 00 Zolpidem Tartrate (Ambien) 5 mg QHS PRN PO SLEEP; Start 07/23/16 at 17:00 Heparin Sodium (Porcine) (Heparin (5000 Units/0.5 ml)) 5,000 unit Q12 SC Last administered on 07/25/16 08:34; Admin Dose 5,000 UNIT; Start 07/23/16 at 21:00 Fish Oil 1000 mg 1,000 mg BID PO Last administered on 07/25/16 08:28; Admin Dose 1,000 MG; Start 07/24/16 at 10:00 Sodium Chloride 1,000 ml @ 80 mls/hr [id number] IV Last administered on 07/25/16 13:34; Admin Dose 80 MLS/HR; Start 07/24/16 at 10:00 Vancomycin HCl/ Sodium Chloride (Vancocin/NS) 500 ml @ 125 mls/hr Q48H IVPB Last administered on 07/25/16 05:40; Admin Dose 125 MLS/HR; Start 07/25/16 at 05: 00 Morphine Sulfate (morphine) 4 mg Q4H PRN IV SEVERE PAIN LEVEL 7-10; Start at 13:00 Acetaminophen/ Hydrocodone Bitart ([place] (7.5-325)) 1 tab Q4H PRN PO PAIN LEVEL 4-6 Last administered on 07/25/16 17:54; Admin Dose 1 TAB; Start 07/24/16 at 11:00 Famotidine 20 mg 20 mg Q24H PO Last administered on 07/25/16 13:35; Admin Dose 20 MG; Start 07/24/16 at 14:00 Levofloxacin/ Dextrose (Levaquin 250 Mg/ D5W 50 ml (Pmx)) 50 ml @ 50 mls/hr Q24H IVPB Last administered on 07/24/16 22:00; Admin Dose 50 MLS/HR; Start 07/24 at 19:30 Metronidazole (Flagyl) 500 mg Q8 PO Last administered on 07/25/16 13:35; Admin Dose 500 MG; Start 07/24/16 at 22:00 Nystatin (Nystatin Powder) 1 applic BID TOP ; Start 07/25/16 at 12:30; Stop 08/01 at 12:29 Miconazole Nitrate (Miconazole 2% Vag Cr) 1 applic HS VAG ; Start 07/25/16 at 21: 00; Stop 07/28/16 at 20:59 ALEX WALL Jul 25, 2016 18:21
--- NOTE | 2016-07-25 18:31 | CONS ---
Date/Time of Note Date/Time of Note DATE: 07/25/16 TIME: 18:28 Assessment/Plan Assessment/Plan Chief Complaint/Hosp Course SUBJECTIVE: No acute changes. The patient is alert, lying comfortably in bed. She has less pain, RLE erythema tracing down, no fevers ANTIMICROBIALS: The patient is on IV vancomycin Levaquin, Flagyl. OBJECTIVE: GENERAL: This is a morbidly obese, well-developed, middle-aged white woman who is lying comfortably in bed. HEENT: Head atraumatic, normocephalic. Sclerae anicteric. Buccal mucosa pink. NECK: Obese. CHEST: Rise symmetrical. Breath sounds clear. HEART: S1, S2. ABDOMEN: Soft, bowel tones present. EXTREMITIES: With right lower extremity edema, erythema and blistering. ASSESSMENT: 1. Right lower extremity cellulitis, possible abscess. 2. Morbid obesity. 3. Systemic inflammatory response syndrome with low grade fevers and leukocytosis. 4. Acute kidney injury, possible chronic kidney disease. PLAN: Stable, will keep on current abd, await for cx's, keep RLE elevated, pending podiatry eval [facility] staff Problems: Consultation Date/Type/Reason Admit Date/Time Jul 23, 2016 at 15:05 Initial Consult Date 07/24/16 Type of Consultation: ID Exam/Review of Systems Vital Signs Vitals Vital Signs Date Time Temp Pulse Resp B/P Pulse Ox O2 Delivery O2 Flow Rate FiO2 07/25/16 08:16 99.2 96 23 97/41 97 07/23/16 18:51 Room Air Intake and Output 07/24/16 07/24/16 07/25/16 15:00 23:00 07:00 Intake Total 915 ml 3870 ml 1100 ml Balance 915 ml 3870 ml 1100 ml Results Result Diagram: 07/25/16 1350 07/25/16 1350 Results 24 hrs Laboratory Tests Test 07/25/16 13:50 Anion Gap 10 # Basophils # 0.0 Basophils % 0.2 Blood Morphology Comment Blood Urea Nitrogen 31 H Calcium Level 7.9 L Carbon Dioxide Level 22 Chloride Level 101 Creatinine 2.36 H Eosinophils # 0.0 Eosinophils % 0.0 Glucose Level 95 Hematocrit 32.1 L Hemoglobin 10.8 L Lymphocytes # 0.9 Lymphocytes % 5.2 L Mean Corpuscular Hemoglobin 29.1 Mean Corpuscular Hemoglobin Concent 33.7 Mean Corpuscular Volume 86.6 Mean Platelet Volume 8.9 Monocytes # 0.7 Monocytes % 4.2 Neutrophils # 15.7 H Neutrophils % 90.4 H Nucleated Red Blood Cells # 0.0 Nucleated Red Blood Cells % 0.0 Platelet Count 198 Potassium Level 3.4 L Red Blood Count 3.71 L Red Cell Distribution Width 15.4 H Sodium Level 130 L White Blood Count 17.3 H Medications Medications Current Medications Ondansetron HCl (Zofran Inj) 4 mg Q6H PRN IV NAUSEA AND/OR VOMITING; Start 07/23 at 17:00 Acetaminophen (Tylenol Tab) 650 mg Q6H PRN PO PAIN LEVEL 1-3 OR FEVER Last administered on 07/25/16 10:27; Admin Dose 650 MG; Start 07/23/16 at 17:00 Docusate Sodium (Colace) 100 mg Q12H PRN PO CONSTIPATION; Start 07/23/16 at 17: 00 Zolpidem Tartrate (Ambien) 5 mg QHS PRN PO SLEEP; Start 07/23/16 at 17:00 Heparin Sodium (Porcine) (Heparin (5000 Units/0.5 ml)) 5,000 unit Q12 SC Last administered on 07/25/16 08:34; Admin Dose 5,000 UNIT; Start 07/23/16 at 21:00 Fish Oil 1000 mg 1,000 mg BID PO Last administered on 07/25/16 08:28; Admin Dose 1,000 MG; Start 07/24/16 at 10:00 Sodium Chloride 1,000 ml @ 80 mls/hr [id number] IV Last administered on 07/25/16 13:34; Admin Dose 80 MLS/HR; Start 07/24/16 at 10:00 Vancomycin HCl/ Sodium Chloride (Vancocin/NS) 500 ml @ 125 mls/hr Q48H IVPB Last administered on 07/25/16 05:40; Admin Dose 125 MLS/HR; Start 07/25/16 at 05: 00 Morphine Sulfate (morphine) 4 mg Q4H PRN IV SEVERE PAIN LEVEL 7-10; Start at 13:00 Acetaminophen/ Hydrocodone Bitart ([place] (7.5-325)) 1 tab Q4H PRN PO PAIN LEVEL 4-6 Last administered on 07/25/16 17:54; Admin Dose 1 TAB; Start 07/24/16 at 11:00 Famotidine 20 mg 20 mg Q24H PO Last administered on 07/25/16 13:35; Admin Dose 20 MG; Start 07/24/16 at 14:00 Levofloxacin/ Dextrose (Levaquin 250 Mg/ D5W 50 ml (Pmx)) 50 ml @ 50 mls/hr Q24H IVPB Last administered on 07/24/16 22:00; Admin Dose 50 MLS/HR; Start 07/24 at 19:30 Metronidazole (Flagyl) 500 mg Q8 PO Last administered on 07/25/16 13:35; Admin Dose 500 MG; Start 07/24/16 at 22:00 Nystatin (Nystatin Powder) 1 applic BID TOP ; Start 07/25/16 at 12:30; Stop 08/01 at 12:29 Miconazole Nitrate (Miconazole 2% Vag Cr) 1 applic HS VAG ; Start 07/25/16 at 21: 00; Stop 07/28/16 at 20:59 JEFF JENKINS ANODISER Jul 25, 2016 18:31
[2016-07-25 20:27] VITALS: BP 106/46; RESP 18
[2016-07-25] MEDS: LEVOFLOXACIN 250MG/D5W (PMX) 50 ML IVPB SCH (21:20)
[2016-07-25] MEDS: MICONAZOLE 2% 45 GM VAG CR VAG SCH (21:20)
[2016-07-26] MEDS: SOD CHLORIDE 0.9% 1,000 ML IV SCH ×2 (03:15→15:56)
[2016-07-26 06:18] LABS: BASOPHILS % 0.2 % (0.0-2.0); EOSINOPHILS % 0.1 % (0.0-7.0); HEMATOCRIT 32.3 % (37.0-47.0); HEMOGLOBIN 10.9 g/dl (12.0-16.0); LYMPHOCYTES # 1.1 10^3/ul (0.8-2.9); LYMPHOCYTES % 5.7 % (15.0-51.0); MEAN CORPUSCULAR HEMOGLOBIN 29.5 pg (29.0-33.0); MEAN CORPUSCULAR HGB CONC 33.7 g/dl (32.0-37.0); MEAN CORPUSCULAR VOLUME 87.5 fl (82.0-101.0); MONOCYTE # 1.1 10^3/ul (0.3-0.9); MONOCYTES % 5.7 % (0.0-11.0); NEUTROPHIL # 17.2 10^3/ul (1.6-7.5); NEUTROPHILS % 88.3 % (39.0-77.0); PLATELET COUNT 229 10^3/UL (140-440); RED CELL DISTRIBUTION WIDTH 15.6 % (11.5-14.5); UNCORRECTED WBC 19.4 10^3/ul (4.8-10.8); WHITE BLOOD COUNT 19.4 10^3/ul (4.8-10.8)
[2016-07-26 06:26] LABS: CONDITION 1; LH ANALYZER COMMENTS 1
[2016-07-26] MEDS: metroNIDAZOLE 500 MG TAB PO SCH ×2 (06:34→14:03)
[2016-07-26] MEDS: HYDROCODONE/APAP (7.5/325) TAB PO PRN ×3 (06:38→18:11)
[2016-07-26 06:45] LABS: POTASSIUM 3.7 mmol/L (3.5-5.1)
[2016-07-26 06:48] LABS: CREATININE 2.11 mg/dl (0.44-1.00)
[2016-07-26 06:49] LABS: CALCIUM 7.7 mg/dl (8.4-10.2); MAGNESIUM 2.3 mg/dl (1.7-2.5)
[2016-07-26 07:33] VITALS: BP 119/59; RESP 20
[2016-07-26] MEDS: FISH OIL 1,000 MG CAP PO SCH ×2 (10:09→20:21)
[2016-07-26] MEDS: NYSTATIN 30 GM POWDER BTL TOP SCH ×2 (10:10→20:19)
[2016-07-26] MEDS: HEPARIN 5,000 UNIT/0.5 ML SYG SC SCH ×2 (10:17→20:23)
--- NOTE | 2016-07-26 10:34 | PN ---
DATE: 07/26/2016 SUBJECTIVE: The patient is stable, no acute events overnight. No hemoptysis, hematemesis. OBJECTIVE: VITAL SIGNS: Blood pressure 119/59, respirations 20, pulse 94, temperature 99.0. HEENT: Normocephalic. NECK: Supple. HEART: Regular rate. LUNGS: Show diminished breath sounds at the base. ABDOMEN: Soft, nontender to palpation without rebound or guarding. EXTREMITIES: Negative for clubbing, cyanosis. Positive edema, positive right lower extremity eryth filomena. DERMATOLOGIC: No rashes. MUSCULOSKELETAL: No joint effusions. NEUROLOGIC: No change in exam. MEDICATIONS: Patient's medications have been reviewed. LABORATORY DATA: Shows sodium 134, potassium 3.7, BUN 29, creatinine 2.11. White count is 19.4, he moglobin 10.9, hematocrit 32.3, platelet count is 229. ASSESSMENT AND PLAN: 1. Nonoliguric acute kidney injury with unknown baseline creatinine. Etiology of acute kidney inju ry is likely secondary to tubular injury due to recent NSAID use, hemodynamics. Patient's renal fun ction has been improving with IV fluids. Plan at this point is to check a UA with microanalysis. W e will check renal ultrasound to evaluate renal parenchyma and to rule out obstruction. Would other [place] continue current treatment plan, supportive care, renally dose all meds, avoid nephrotoxins. A void NSAIDs. Continue treating underlying infection. 2. Hyponatremia. Etiology is secondary to acute kidney injury causing decreased free water urinary excretion. The patient's sodium levels are improving with improvement of renal function. We will continue current treatment plan. 3. Hypokalemia, resolved. 4. Anemia. Continue to monitor hemoglobin and hematocrit levels. 5. Mineral bone disorder, monitor calcium and phosphorus levels. 6. Cellulitis, lower extremity. Continue current antibiotic regimen. 7. Morbid obesity. Continue dietary modification. Dictated By: KIMBERLY MERCADO/HANNY Conf#: [id number] DID#: [id number]
[2016-07-26] MEDS: FAMOTIDINE 20 MG TAB PO SCH (14:03)
[2016-07-26 14:59] LABS: ADD UMIC YES; URINE BILIRUBIN (Dip) NEGATIVE (NEGATIVE); URINE BLOOD (Dip) 3+ (NEGATIVE); URINE COLOR LT. YELLOW (YELLOW); URINE GLUCOSE (Dip) NEGATIVE (NEGATIVE); URINE KETONES (Dip) NEGATIVE (NEGATIVE); URINE LEUKOCYTE ESTERASE (Dip) 1+ (NEGATIVE); URINE NITRITE (Dip) NEGATIVE (NEGATIVE); URINE TOTAL PROTEIN (Dip) 1+ (NEGATIVE); URINE UROBILINOGEN (Dip) 0.2 E.U./dL (0.1-1.0)
--- NOTE | 2016-07-26 15:23 | PN ---
Date/Time of Note Date/Time of Note DATE: 07/26/16 TIME: 15:15 Assessment/Plan VTE Prophylaxis VTE Prophylaxis Intervention: heparin Lines/Catheters IV Catheter Type (from Nrs): Peripheral IV Urinary Cath still in place: No Assessment/Plan Assessment/Plan 1. Right lower extremity cellulitis: No abscess on CT: still with pain, on antibiotics, keep leg elevated 2. Acute renal insufficiency with likely underlying chronic kidney disease: stable 3. Anion gap metabolic acidosis 07/22 #1 : resolved 4. Morbid obesity BMI 60 5. Dyslipidemia Subjective 24 Hr Interval Summary Free Text/Dictation still with lots of pain on right lower extremity Exam/Review of Systems Vital Signs Vitals Vital Signs Date Time Temp Pulse Resp B/P Pulse Ox O2 Delivery O2 Flow Rate FiO2 07/26/16 07:33 99.0 94 20 119/59 95 07/23/16 18:51 Room Air Intake and Output 07/25/16 07/25/16 07/26/16 15:00 23:00 07:00 Intake Total 500 ml 1640 ml 1320 ml Balance 500 ml 1640 ml 1320 ml Exam Constitutional: alert, oriented, well developed Psych: nl mood/affect, no complaints Head: atraumatic, normocephalic Eyes: PERRL, nl conjunctiva, nl lids ENMT: nl external ears & nose, nl lips & teeth, nl nasal mucosa & septum Neck: non-tender, supple Respiratory: clear to auscultation, normal air movement, No congested cough, No crackles/rales, No diminished breath sounds, No intercostal retraction, No labored breathing, No respirations, No tactile fremitus, No wheezing Cardiovascular: nl pulses, regular rate and rhythm, No S3, No S4, No bruits, No diastolic murmur, No edema, No gallop, No irregular rhythm, No jugular venous distention (JVD), No murmurs/extra sounds, No other, No rub, No systolic murmur Gastrointestinal: nl liver, spleen, non-tender, soft, No ascites, No bowel sounds, No distended, No firm, No hepatomegaly, No mass , No other, No rebound or guarding, No splenomegaly, No surgical scars, No tender Musculoskeletal: nl extremities to inspection Extremities: normal pulses, other (right lower extremity below the knee with redness, swelling, blisters, warm) Neurological: LAWN TECHNICIAN II-XII intact, nl mental status, nl speech, nl strength Results Result Diagram: 07/26/16 0515 07/26/16 0515 Results 24 hrs Laboratory Tests Test 07/26/16 05:15 Anion Gap 14 Basophils # 0.0 Basophils % 0.2 Blood Morphology Comment Blood Urea Nitrogen 29 H Calcium Level 7.7 L Carbon Dioxide Level 19 L Chloride Level 105 Creatinine 2.11 H Eosinophils # 0.0 Eosinophils % 0.1 Glucose Level 97 Hematocrit 32.3 L Hemoglobin 10.9 L Lymphocytes # 1.1 Lymphocytes % 5.7 L Magnesium Level 2.3 Mean Corpuscular Hemoglobin 29.5 Mean Corpuscular Hemoglobin Concent 33.7 Mean Corpuscular Volume 87.5 Mean Platelet Volume 9.0 Monocytes # 1.1 H Monocytes % 5.7 Neutrophils # 17.2 H Neutrophils % 88.3 H Nucleated Red Blood Cells # 0.0 Nucleated Red Blood Cells % 0.0 Platelet Count 229 Potassium Level 3.7 Red Blood Count 3.70 L Red Cell Distribution Width 15.6 H Sodium Level 134 L White Blood Count 19.4 H Medications Medications Current Medications Ondansetron HCl (Zofran Inj) 4 mg Q6H PRN IV NAUSEA AND/OR VOMITING; Start 07/23 at 17:00 Acetaminophen (Tylenol Tab) 650 mg Q6H PRN PO PAIN LEVEL 1-3 OR FEVER Last administered on 07/25/16 10:27; Admin Dose 650 MG; Start 07/23/16 at 17:00 Docusate Sodium (Colace) 100 mg Q12H PRN PO CONSTIPATION; Start 07/23/16 at 17: 00 Zolpidem Tartrate (Ambien) 5 mg QHS PRN PO SLEEP; Start 07/23/16 at 17:00 Heparin Sodium (Porcine) (Heparin (5000 Units/0.5 ml)) 5,000 unit Q12 SC Last administered on 07/26/16 10:17; Admin Dose 5,000 UNIT; Start 07/23/16 at 21:00 Fish Oil 1000 mg 1,000 mg BID PO Last administered on 07/26/16 10:09; Admin Dose 1,000 MG; Start 07/24/16 at 10:00 Sodium Chloride (NS) 1,000 ml @ 80 mls/hr [id number] IV Last administered on 03:15; Admin Dose 80 MLS/HR; Start 07/24/16 at 10:00 Morphine Sulfate (morphine) 4 mg Q4H PRN IV SEVERE PAIN LEVEL 7-10; Start at 13:00 Acetaminophen/ Hydrocodone Bitart ([place] (7.5-325)) 1 tab Q4H PRN PO PAIN LEVEL 4-6 Last administered on 07/26/16 14:04; Admin Dose 1 TAB; Start 07/24/16 at 11:00 Famotidine 20 mg 20 mg Q24H PO Last administered on 07/26/16 14:03; Admin Dose 20 MG; Start 07/24/16 at 14:00 Levofloxacin/ Dextrose (Levaquin 250 Mg/ D5W 50 ml (Pmx)) 50 ml @ 50 mls/hr Q24H IVPB Last administered on 07/25/16 21:20; Admin Dose 50 MLS/HR; Start 07/24 at 19:30 Metronidazole (Flagyl) 500 mg Q8 PO Last administered on 07/26/16 14:03; Admin Dose 500 MG; Start 07/24/16 at 22:00 Nystatin (Nystatin Powder) 1 applic BID TOP Last administered on 07/26/16 10:10 ; Admin Dose 1 APPLIC; Start 07/25/16 at 12:30; Stop 08/01/16 at 12:29 Miconazole Nitrate 1 applic 1 applic HS VAG Last administered on 07/25/16 21:20 ; Admin Dose 1 APPLIC; Start 07/25/16 at 21:00; Stop 07/28/16 at 20:59 Vancomycin HCl/ Sodium Chloride (Vancocin/NS) 500 ml @ 125 mls/hr Q36H IVPB ; Start 07/26/16 at 17:00 HARRY ROMERO MD Jul 26, 2016 15:23
[2016-07-26 15:28] LABS: BACTERIA,URINE FEW; URINE RBCS >50 /HPF (0)
[2016-07-26 16:13] LABS: ADD UMIC YES; URINE BILIRUBIN (Dip) NEGATIVE (NEGATIVE); URINE BLOOD (Dip) 3+ (NEGATIVE); URINE COLOR LT. YELLOW (YELLOW); URINE GLUCOSE (Dip) NEGATIVE (NEGATIVE); URINE KETONES (Dip) NEGATIVE (NEGATIVE); URINE LEUKOCYTE ESTERASE (Dip) TRACE (NEGATIVE); URINE NITRITE (Dip) NEGATIVE (NEGATIVE); URINE TOTAL PROTEIN (Dip) 1+ (NEGATIVE); URINE UROBILINOGEN (Dip) 0.2 E.U./dL (0.1-1.0)
[2016-07-26 16:26] LABS: BACTERIA,URINE FEW; URINE RBCS >200 /HPF (0)
--- NOTE | 2016-07-26 16:43 | CONS ---
Date/Time of Note Date/Time of Note DATE: 07/26/16 TIME: 16:43 Assessment/Plan Assessment/Plan Chief Complaint/Hosp Course SUBJECTIVE: No acute changes. The patient is alert, lying comfortably in bed. She has less pain, RLE erythema tracing down, no fevers ANTIMICROBIALS: The patient is on IV vancomycin Levaquin, Flagyl. OBJECTIVE: GENERAL: This is a morbidly obese, well-developed, middle-aged white woman who is lying comfortably in bed. HEENT: Head atraumatic, normocephalic. Sclerae anicteric. Buccal mucosa pink. NECK: Obese. CHEST: Rise symmetrical. Breath sounds clear. HEART: S1, S2. ABDOMEN: Soft, bowel tones present. EXTREMITIES: With right lower extremity edema, erythema and blistering. ASSESSMENT: 1. Right lower extremity cellulitis, possible abscess. 2. Morbid obesity. 3. Systemic inflammatory response syndrome with low grade fevers and leukocytosis. 4. Acute kidney injury, possible chronic kidney disease. PLAN: Clinically stable, add nubia Asencio Flagyl, continue abx, RLE elevation, pending podiatry eval [facility] staff Problems: Consultation Date/Type/Reason Admit Date/Time Jul 23, 2016 at 15:05 Initial Consult Date 07/24/16 Type of Consultation: ID Exam/Review of Systems Vital Signs Vitals Vital Signs Date Time Temp Pulse Resp B/P Pulse Ox O2 Delivery O2 Flow Rate FiO2 07/26/16 07:33 99.0 94 20 119/59 95 07/23/16 18:51 Room Air Intake and Output 07/25/16 07/25/16 07/26/16 15:00 23:00 07:00 Intake Total 500 ml 1640 ml 1320 ml Balance 500 ml 1640 ml 1320 ml Results Result Diagram: 07/26/16 0515 07/26/16 0515 Results 24 hrs Laboratory Tests Test 07/26/16 05:15 07/26/16 14:30 Anion Gap 14 Basophils # 0.0 Basophils % 0.2 Blood Morphology Comment Blood Urea Nitrogen 29 H Calcium Level 7.7 L Carbon Dioxide Level 19 L Chloride Level 105 Creatinine 2.11 H Eosinophils # 0.0 Eosinophils % 0.1 Glucose Level 97 Hematocrit 32.3 L Hemoglobin 10.9 L Lymphocytes # 1.1 Lymphocytes % 5.7 L Magnesium Level 2.3 Mean Corpuscular Hemoglobin 29.5 Mean Corpuscular Hemoglobin Concent 33.7 Mean Corpuscular Volume 87.5 Mean Platelet Volume 9.0 Monocytes # 1.1 H Monocytes % 5.7 Neutrophils # 17.2 H Neutrophils % 88.3 H Nucleated Red Blood Cells # 0.0 Nucleated Red Blood Cells % 0.0 Platelet Count 229 Potassium Level 3.7 Red Blood Count 3.70 L Red Cell Distribution Width 15.6 H Sodium Level 134 L White Blood Count 19.4 H Urine Bacteria FEW Urine Bilirubin NEGATIVE Urine Clarity CLOUDY Urine Color LT. YELLOW Urine Epithelial Cells MODERATE Urine Glucose NEGATIVE Urine Hemoglobin 3+ H Urine Ketones NEGATIVE Urine Leukocyte Esterase TRACE H Urine Microscopic RBC >200 Urine Microscopic WBC 5-10 Urine Nitrite NEGATIVE Urine Specific [place] 1.010 Urine Total Protein 1+ H Urine Urobilinogen 0.2 E.U./dL Urine pH 6.5 Medications Medications Current Medications Ondansetron HCl (Zofran Inj) 4 mg Q6H PRN IV NAUSEA AND/OR VOMITING; Start 07/23 at 17:00 Acetaminophen (Tylenol Tab) 650 mg Q6H PRN PO PAIN LEVEL 1-3 OR FEVER Last administered on 07/25/16 10:27; Admin Dose 650 MG; Start 07/23/16 at 17:00 Docusate Sodium (Colace) 100 mg Q12H PRN PO CONSTIPATION; Start 07/23/16 at 17: 00 Zolpidem Tartrate (Ambien) 5 mg QHS PRN PO SLEEP; Start 07/23/16 at 17:00 Heparin Sodium (Porcine) (Heparin (5000 Units/0.5 ml)) 5,000 unit Q12 SC Last administered on 07/26/16 10:17; Admin Dose 5,000 UNIT; Start 07/23/16 at 21:00 Fish Oil 1000 mg 1,000 mg BID PO Last administered on 07/26/16 10:09; Admin Dose 1,000 MG; Start 07/24/16 at 10:00 Sodium Chloride (NS) 1,000 ml @ 80 mls/hr [id number] IV Last administered on 15:56; Admin Dose 80 MLS/HR; Start 07/24/16 at 10:00 Morphine Sulfate (morphine) 4 mg Q4H PRN IV SEVERE PAIN LEVEL 7-10; Start at 13:00 Acetaminophen/ Hydrocodone Bitart ([place] (7.5-325)) 1 tab Q4H PRN PO PAIN LEVEL 4-6 Last administered on 07/26/16 14:04; Admin Dose 1 TAB; Start 07/24/16 at 11:00 Famotidine 20 mg 20 mg Q24H PO Last administered on 07/26/16 14:03; Admin Dose 20 MG; Start 07/24/16 at 14:00 Levofloxacin/ Dextrose (Levaquin 250 Mg/ D5W 50 ml (Pmx)) 50 ml @ 50 mls/hr Q24H IVPB Last administered on 07/25/16 21:20; Admin Dose 50 MLS/HR; Start 07/24 at 19:30 Metronidazole (Flagyl) 500 mg Q8 PO Last administered on 07/26/16 14:03; Admin Dose 500 MG; Start 07/24/16 at 22:00 Nystatin (Nystatin Powder) 1 applic BID TOP Last administered on 07/26/16 10:10 ; Admin Dose 1 APPLIC; Start 07/25/16 at 12:30; Stop 08/01/16 at 12:29 Miconazole Nitrate 1 applic 1 applic HS VAG Last administered on 07/25/16 21:20 ; Admin Dose 1 APPLIC; Start 07/25/16 at 21:00; Stop 07/28/16 at 20:59 Vancomycin HCl/ Sodium Chloride (Vancocin/NS) 500 ml @ 125 mls/hr Q36H IVPB ; Start 07/26/16 at 17:00 JEFF JENKINS NP Jul 26, 2016 16:43
--- NOTE | 2016-07-26 16:43 | RADRPT ---
PROCEDURE: Retroperitoneal US. CLINICAL INDICATION: Renal insufficiency TECHNIQUE: Multiple sonographic images of the kidneys and retroperitoneum were obtained. The imag es were reviewed on a PACS workstation. COMPARISON: No prior studies are available for comparison. FINDINGS: The study is markedly limited due to patient body habitus. The right kidney is not well seen. The right kidney measures 8.8 cm. The left kidney measures 14.1 cm. There is no gross evidence for hydronephrosis. The urinary bladder is not visualized. RPTAT: AA IMPRESSION: Very limited study due to patient body habitus. No gross evidence of hydronephrosis. Right kidney is not well seen. .Supa Soria MD, Date Time Electronically viewed and signed by .Supa Soria MD, MD on 07/26/2016 16:43 .S/
[2016-07-26] MEDS: ERTAPENEM SODIUM 1 GM in SOD CHLORIDE 0.9% 100 ML IVPB SCH (17:45)
[2016-07-26] MEDS: VANCOMYCIN 2 GM in SOD CHLORIDE 0.9% 500 ML IVPB SCH (18:12)
[2016-07-26] MEDS: ONDANSETRON 4 MG INJ IV PRN (18:24)
[2016-07-26 19:34] VITALS: BP 139/73; RESP 20
[2016-07-26] MEDS: LEVOFLOXACIN 250MG/D5W (PMX) 50 ML IVPB SCH (20:17)
[2016-07-26] MEDS: MICONAZOLE 2% 45 GM VAG CR VAG SCH (20:19)
[2016-07-26] MEDS: SILVER SULFADIAZINE 1% 25 GM CR TOP SCH (20:25)
[2016-07-27] MEDS: SOD CHLORIDE 0.9% 1,000 ML IV SCH ×3 (00:30→13:00)
[2016-07-27 06:02] LABS: EOSINOPHILS # 0.1 10^3/ul (0.0-0.5); EOSINOPHILS % 0.5 % (0.0-7.0); HEMOGLOBIN 10.5 g/dl (12.0-16.0); LYMPHOCYTES # 1.3 10^3/ul (0.8-2.9); LYMPHOCYTES % 6.5 % (15.0-51.0); MEAN CORPUSCULAR HEMOGLOBIN 29.8 pg (29.0-33.0); MEAN CORPUSCULAR VOLUME 87.6 fl (82.0-101.0); MEAN PLATELET VOLUME 8.9 fl (7.4-10.4); MONOCYTES % 5.4 % (0.0-11.0); NEUTROPHILS % 87.6 % (39.0-77.0); PLATELET COUNT 262 10^3/UL (140-440); RED BLOOD COUNT 3.54 10^6/ul (4.20-5.40); RED CELL DISTRIBUTION WIDTH 15.7 % (11.5-14.5); UNCORRECTED WBC 19.4 10^3/ul (4.8-10.8); WHITE BLOOD COUNT 19.4 10^3/ul (4.8-10.8)
[2016-07-27 06:06] LABS: MAGNESIUM 2.1 mg/dl (1.7-2.5); PHOSPHORUS 3.9 mg/dl (2.5-4.9); POTASSIUM 3.5 mmol/L (3.5-5.1)
[2016-07-27 06:08] LABS: CREATININE 1.85 mg/dl (0.44-1.00)
[2016-07-27 06:09] LABS: CALCIUM 7.6 mg/dl (8.4-10.2)
[2016-07-27 07:08] LABS: CONDITION 1; LH ANALYZER COMMENTS 1
[2016-07-27 07:16] VITALS: BP 100/53; RESP 20
[2016-07-27] MEDS: ONDANSETRON 4 MG INJ IV PRN (09:06)
[2016-07-27] MEDS: HYDROCODONE/APAP (7.5/325) TAB PO PRN ×2 (11:12→17:46)
--- NOTE | 2016-07-27 12:26 | PN ---
DATE: 07/27/2016 SUBJECTIVE: The patient is stable, no acute events overnight. No fevers, chills, nausea, vomiting. No shortness of breath. OBJECTIVE: VITAL SIGNS: Blood pressure is 100/53, respirations 20, pulse 74, temperature 97.4. HEENT: Head is normocephalic. NECK: Supple. HEART: Regular rate. LUNGS: Show diminished breath sounds at the base. ABDOMEN: Soft, nontender to palpation, no rebound or guarding. EXTREMITIES: Negative for clubbing, cyanosis, or edema on the left leg. Right lower extremity has noted erythema, noted of bullae and blisters. DERMATOLOGIC: No new rashes. MUSCULOSKELETAL: No joint effusions. NEUROLOGIC: No focal deficits. LABORATORY DATA: Shows a sodium 138, potassium 3.5, chloride 109, BUN 25, creatinine 1.85. White c ount is 19.4, hemoglobin 10.5, hematocrit 31.0, platelet count is 262. ASSESSMENT AND PLAN: 1. Nonoliguric acute kidney injury with unknown baseline creatinine. Etiology of acute kidney inju ry is secondary to acute tubular necrosis due to recent NSAID use, hemodynamics. Renal function has improving with IV fluids. At this point, continue current treatment plan, supportive care, renally dose all meds. Patient's renal ultrasound was reviewed, showed no evidence of hydronephrosis. 2. Hyponatremia secondary to acute kidney injury. Improving, continue to monitor. 3. Hypokalemia, improved. Continue to monitor. 4. Anemia. Continue to monitor hemoglobin and hematocrit levels. 5. Mineral bone disorder. Continue to monitor calcium and phosphorus levels. 6. Cellulitis, lower extremity bullae, possible abscess. Continue current antibiotic regimen. May consider surgery evaluation. 7. Morbid obesity. Continue dietary modification. Dictated By: KIMBERLY MERCADO/NTS Conf#: [id number] DID#: [id number]
[2016-07-27] MEDS: SILVER SULFADIAZINE 1% 25 GM CR TOP SCH (13:39)
[2016-07-27] MEDS: NYSTATIN 30 GM POWDER BTL TOP SCH ×2 (13:39→21:23)
--- NOTE | 2016-07-27 13:42 | PN ---
Date/Time of Note Date/Time of Note DATE: 07/27/16 TIME: 13:41 Assessment/Plan VTE Prophylaxis VTE Prophylaxis Intervention: heparin Lines/Catheters IV Catheter Type (from Nrs): Peripheral IV Urinary Cath still in place: No Assessment/Plan Assessment/Plan 1. Right lower extremity cellulitis: No abscess on CT: still with pain, on antibiotics, keep leg elevated 2. Acute renal insufficiency with likely underlying chronic kidney disease: stable 3. Anion gap metabolic acidosis 07/22 #1 : resolved 4. Morbid obesity BMI 60 5. Dyslipidemia 7. Talked to patient's [id number] per request Subjective 24 Hr Interval Summary Free Text/Dictation afebrile Exam/Review of Systems Vital Signs Vitals Vital Signs Date Time Temp Pulse Resp B/P Pulse Ox O2 Delivery O2 Flow Rate FiO2 07/27/16 07:16 97.4 94 20 100/53 97 07/23/16 18:51 Room Air Intake and Output 07/26/16 07/26/16 07/27/16 15:00 23:00 07:00 Intake Total 2220 ml 1040 ml Output Total 1000 ml Balance 1220 ml 1040 ml Exam Constitutional: alert, oriented, well developed Psych: nl mood/affect, no complaints Head: atraumatic, normocephalic Eyes: EOMI, PERRL, nl conjunctiva ENMT: nl external ears & nose, nl lips & teeth, nl nasal mucosa & septum Neck: supple Respiratory: clear to auscultation, normal air movement, No congested cough, No crackles/rales, No diminished breath sounds, No intercostal retraction, No labored breathing, No other, No respirations, No tactile fremitus, No wheezing Cardiovascular: nl pulses, regular rate and rhythm, No S3, No S4, No bruits, No diastolic murmur, No gallop, No irregular rhythm , No jugular venous distention (JVD), No murmurs/extra sounds, No other, No rub , No systolic murmur Gastrointestinal: nl liver, spleen, non-tender, soft, No ascites, No bowel sounds, No distended, No firm, No hepatomegaly, No mass , No other, No rebound or guarding, No splenomegaly, No surgical scars, No tender Musculoskeletal: nl extremities to inspection Extremities: normal pulses, other (edema, redness, with blisters on right lower extremity close to the ankle) 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 YELLOW Urine Epithelial Cells MODERATE Urine Glucose NEGATIVE Urine Hemoglobin 3+ H Urine Ketones NEGATIVE Urine Leukocyte Esterase TRACE H Urine Microscopic RBC >200 Urine Microscopic WBC 5-10 Urine Nitrite NEGATIVE Urine Random Creatinine 75.88 Urine Random Sodium 23 L Urine Specific [place] 1.010 Urine Total Protein 1+ H Urine Urobilinogen 0.2 E.U./dL Urine pH 6.5 Anion Gap 14 Basophils # 0.0 Basophils % 0.0 Blood Morphology Comment Blood Urea Nitrogen 25 H Calcium Level 7.6 L Carbon Dioxide Level 19 L Chloride Level 109 Creatinine 1.85 H Eosinophils # 0.1 Eosinophils % 0.5 Glucose Level 78 Hematocrit 31.0 L Hemoglobin 10.5 L Lymphocytes # 1.3 Lymphocytes % 6.5 L Magnesium Level 2.1 Mean Corpuscular Hemoglobin 29.8 Mean Corpuscular Hemoglobin Concent 34.0 Mean Corpuscular Volume 87.6 Mean Platelet Volume 8.9 Monocytes # 1.0 H Monocytes % 5.4 Neutrophils # 17.0 H Neutrophils % 87.6 H Nucleated Red Blood Cells # 0.0 Nucleated Red Blood Cells % 0.0 Phosphorus Level 3.9 Platelet Count 262 Potassium Level 3.5 Red Blood Count 3.54 L Red Cell Distribution Width 15.7 H Sodium Level 138 White Blood Count 19.4 H Medications Medications Current Medications Ondansetron HCl (Zofran Inj) 4 mg Q6H PRN IV NAUSEA AND/OR VOMITING Last administered on 07/27/16 09:06; Admin Dose 4 MG; Start 07/23/16 at 17:00 Acetaminophen (Tylenol Tab) 650 mg Q6H PRN PO PAIN LEVEL 1-3 OR FEVER Last administered on 07/25/16 10:27; Admin Dose 650 MG; Start 07/23/16 at 17:00 Docusate Sodium (Colace) 100 mg Q12H PRN PO CONSTIPATION; Start 07/23/16 at 17: 00 Zolpidem Tartrate (Ambien) 5 mg QHS PRN PO SLEEP; Start 07/23/16 at 17:00 Heparin Sodium (Porcine) (Heparin (5000 Units/0.5 ml)) 5,000 unit Q12 SC Last administered on 07/26/16 20:23; Admin Dose 5,000 UNIT; Start 07/23/16 at 21:00 Fish Oil 1000 mg 1,000 mg BID PO Last administered on 07/26/16 20:21; Admin Dose 1,000 MG; Start 07/24/16 at 10:00 Sodium Chloride (NS) 1,000 ml @ 80 mls/hr [id number] IV Last administered on 11:14; Admin Dose 80 MLS/HR; Start 07/24/16 at 10:00 Morphine Sulfate (morphine) 4 mg Q4H PRN IV SEVERE PAIN LEVEL 7-10; Start at 13:00 Acetaminophen/ Hydrocodone Bitart ([place] (7.5-325)) 1 tab Q4H PRN PO PAIN LEVEL 4-6 Last administered on 07/27/16 11:12; Admin Dose 1 TAB; Start 07/24/16 at 11:00 Famotidine 20 mg 20 mg Q24H PO Last administered on 07/26/16 14:03; Admin Dose 20 MG; Start 07/24/16 at 14:00 Levofloxacin/ Dextrose (Levaquin 250 Mg/ D5W 50 ml (Pmx)) 50 ml @ 50 mls/hr Q24H IVPB Last administered on 07/26/16 20:17; Admin Dose 50 MLS/HR; Start 07/24 at 19:30 Nystatin (Nystatin Powder) 1 applic BID TOP Last administered on 07/26/16 20:19 ; Admin Dose 1 APPLIC; Start 07/25/16 at 12:30; Stop 08/01/16 at 12:29 Miconazole Nitrate 1 applic 1 applic HS VAG Last administered on 07/25/16 21:20 ; Admin Dose 1 APPLIC; Start 07/25/16 at 21:00; Stop 07/28/16 at 20:59 Vancomycin HCl 2 gm/Sodium Chloride 500 ml @ 125 mls/hr Q36H IVPB Last administered on 07/26/16 18:12; Admin Dose 125 MLS/HR; Start 2/6/17 at 17:00 Ertapenem/Sodium Chloride (Invanz/NS) 100 ml @ 200 mls/hr Q24H IVPB Last administered on 07/26/16 17:45; Admin Dose 200 MLS/HR; Start 07/26/16 at 17:00 Silver Sulfadiazine (Thermazene 1% 25 Gm) 1 applic DAILY TOP Last administered on 07/26/16 20:25; Admin Dose 1 APPLIC; Start 07/26/16 at 17:00 Miscellaneous Information (*Rx Drug Level Order Reminder*) VANCO TROUGH @ 0, 400 ON... ONCE ONCE XX ; Start 07/28/16 at 04:00; Stop 07/28/16 at 04:01 HARRY ROMERO MD Jul 27, 2016 13:42
[2016-07-27] MEDS ORDERED: VITAMIN A & D 5 GM OINT PACKET TOP ONE (13:43)
[2016-07-27] MEDS: FAMOTIDINE 20 MG TAB PO SCH (13:45)
[2016-07-27] MEDS: FISH OIL 1,000 MG CAP PO SCH ×2 (13:45→21:23)
[2016-07-27] MEDS: HEPARIN 5,000 UNIT/0.5 ML SYG SC SCH ×2 (13:47→21:27)
--- NOTE | 2016-07-27 13:48 | CONS ---
Date/Time of Note Date/Time of Note DATE: 07/27/16 TIME: 13:46 Assessment/Plan Assessment/Plan Chief Complaint/Hosp Course SUBJECTIVE: No acute changes. The patient is alert, lying comfortably in bed, no fevers ANTIMICROBIALS: The patient is on IV vancomycin Levaquin, Invanz. OBJECTIVE: GENERAL: This is a morbidly obese, well-developed, middle-aged white woman who is lying comfortably in bed. HEENT: Head atraumatic, normocephalic. Sclerae anicteric. Buccal mucosa pink. NECK: Obese. CHEST: Rise symmetrical. Breath sounds clear. HEART: S1, S2. ABDOMEN: Soft, bowel tones present. EXTREMITIES: With right lower extremity edema, erythema and blistering. ASSESSMENT: 1. Right lower extremity cellulitis, blisters, possible abscess. 2. Morbid obesity. 3. Systemic inflammatory response syndrome with low grade fevers and leukocytosis. 4. Acute kidney injury, possible chronic kidney disease. PLAN: Clinically stable, RLE erythema improving, multiple blisters, continue abx, RLE elevation, pending podiatry eval [facility] staff Problems: Consultation Date/Type/Reason Admit Date/Time Jul 23, 2016 at 15:05 Initial Consult Date 07/24/16 Type of Consultation: ID Exam/Review of Systems Vital Signs Vitals Vital Signs Date Time Temp Pulse Resp B/P Pulse Ox O2 Delivery O2 Flow Rate FiO2 07/27/16 07:16 97.4 94 20 100/53 97 07/23/16 18:51 Room Air Intake and Output 07/26/16 07/26/16 07/27/16 15:00 23:00 07:00 Intake Total 2220 ml 1040 ml Output Total 1000 ml Balance 1220 ml 1040 ml Results Result Diagram: 07/27/16 0510 07/27/16 0510 Results 24 hrs Laboratory Tests Test 07/26/16 14:30 07/27/16 05:10 Urine Bacteria FEW Urine Bilirubin NEGATIVE Urine Clarity CLOUDY Urine Color LT. YELLOW Urine Epithelial Cells MODERATE Urine Glucose NEGATIVE Urine Hemoglobin 3+ H Urine Ketones NEGATIVE Urine Leukocyte Esterase TRACE H Urine Microscopic RBC >200 Urine Microscopic WBC 5-10 Urine Nitrite NEGATIVE Urine Random Creatinine 75.88 Urine Random Sodium 23 L Urine Specific [place] 1.010 Urine Total Protein 1+ H Urine Urobilinogen 0.2 E.U./dL Urine pH 6.5 Anion Gap 14 Basophils # 0.0 Basophils % 0.0 Blood Morphology Comment Blood Urea Nitrogen 25 H Calcium Level 7.6 L Carbon Dioxide Level 19 L Chloride Level 109 Creatinine 1.85 H Eosinophils # 0.1 Eosinophils % 0.5 Glucose Level 78 Hematocrit 31.0 L Hemoglobin 10.5 L Lymphocytes # 1.3 Lymphocytes % 6.5 L Magnesium Level 2.1 Mean Corpuscular Hemoglobin 29.8 Mean Corpuscular Hemoglobin Concent 34.0 Mean Corpuscular Volume 87.6 Mean Platelet Volume 8.9 Monocytes # 1.0 H Monocytes % 5.4 Neutrophils # 17.0 H Neutrophils % 87.6 H Nucleated Red Blood Cells # 0.0 Nucleated Red Blood Cells % 0.0 Phosphorus Level 3.9 Platelet Count 262 Potassium Level 3.5 Red Blood Count 3.54 L Red Cell Distribution Width 15.7 H Sodium Level 138 White Blood Count 19.4 H Medications Medications Current Medications Ondansetron HCl (Zofran Inj) 4 mg Q6H PRN IV NAUSEA AND/OR VOMITING Last administered on 07/27/16 09:06; Admin Dose 4 MG; Start 07/23/16 at 17:00 Acetaminophen (Tylenol Tab) 650 mg Q6H PRN PO PAIN LEVEL 1-3 OR FEVER Last administered on 07/25/16 10:27; Admin Dose 650 MG; Start 07/23/16 at 17:00 Docusate Sodium (Colace) 100 mg Q12H PRN PO CONSTIPATION; Start 07/23/16 at 17: 00 Zolpidem Tartrate (Ambien) 5 mg QHS PRN PO SLEEP; Start 07/23/16 at 17:00 Heparin Sodium (Porcine) (Heparin (5000 Units/0.5 ml)) 5,000 unit Q12 SC Last administered on 07/26/16 20:23; Admin Dose 5,000 UNIT; Start 07/23/16 at 21:00 Fish Oil 1000 mg 1,000 mg BID PO Last administered on 07/27/16 13:45; Admin Dose 1,000 MG; Start 07/24/16 at 10:00 Sodium Chloride (NS) 1,000 ml @ 80 mls/hr [id number] IV Last administered on 11:14; Admin Dose 80 MLS/HR; Start 07/24/16 at 10:00 Morphine Sulfate (morphine) 4 mg Q4H PRN IV SEVERE PAIN LEVEL 7-10; Start at 13:00 Acetaminophen/ Hydrocodone Bitart ([place] (7.5-325)) 1 tab Q4H PRN PO PAIN LEVEL 4-6 Last administered on 07/27/16 11:12; Admin Dose 1 TAB; Start 07/24/16 at 11:00 Famotidine 20 mg 20 mg Q24H PO Last administered on 07/27/16 13:45; Admin Dose 20 MG; Start 07/24/16 at 14:00 Levofloxacin/ Dextrose (Levaquin 250 Mg/ D5W 50 ml (Pmx)) 50 ml @ 50 mls/hr Q24H IVPB Last administered on 07/26/16 20:17; Admin Dose 50 MLS/HR; Start 07/24 at 19:30 Nystatin (Nystatin Powder) 1 applic BID TOP Last administered on 07/26/16 20:19 ; Admin Dose 1 APPLIC; Start 07/25/16 at 12:30; Stop 08/01/16 at 12:29 Miconazole Nitrate 1 applic 1 applic HS VAG Last administered on 07/25/16 21:20 ; Admin Dose 1 APPLIC; Start 07/25/16 at 21:00; Stop 07/28/16 at 20:59 Vancomycin HCl 2 gm/Sodium Chloride 500 ml @ 125 mls/hr Q36H IVPB Last administered on 07/26/16 18:12; Admin Dose 125 MLS/HR; Start 07/26/16 at 17:00 Ertapenem/Sodium Chloride (Invanz/NS) 100 ml @ 200 mls/hr Q24H IVPB Last administered on 07/26/16 17:45; Admin Dose 200 MLS/HR; Start 07/26/16 at 17:00 Silver Sulfadiazine (Thermazene 1% 25 Gm) 1 applic DAILY TOP Last administered on 07/26/16 20:25; Admin Dose 1 APPLIC; Start 07/26/16 at 17:00 Miscellaneous Information (*Rx Drug Level Order Reminder*) VANCO TROUGH @ 0, 400 ON... ONCE ONCE XX ; Start 07/28/16 at 04:00; Stop 07/28/16 at 04:01 JEFF JENKINS NON PROFIT FINANCIAL CONTROLLER Jul 27, 2016 13:48
[2016-07-27] MEDS ORDERED: VITAMIN A & D 5 GM OINT PACKET TOP PRN (14:00)
[2016-07-27] MEDS: ERTAPENEM SODIUM 1 GM in SOD CHLORIDE 0.9% 100 ML IVPB SCH (17:45)
--- NOTE | 2016-07-27 18:17 | CONS ---
DATE OF ADMISSION: 07/23/2016 DATE OF CONSULTATION: 07/27/2016 CHIEF COMPLAINT: Right lower extremity edema, blisters, cellulitis. HISTORY OF PRESENT ILLNESS: This is a 31-year-old female who presented to the emergency room for [facility] lower extremity erythema, edema. She states she had a mild cut on the right lateral side of the leg. The patient initiated on vancomycin, aztreonam, Levaquin. States she has occasional fevers. Cultures: Blood cultures no growth. Wound cultures are no growth. The patient relates a decrease in edema. PAST MEDICAL HISTORY: Morbid obesity. PAST SURGICAL HISTORY: None. HOME MEDICATIONS: None. CURRENT MEDICATIONS: Include: 1. Vancomycin. 2. Ertapenem. 3. Levaquin. SOCIAL HISTORY: Tobacco use. ALLERGIES: NONE. PHYSICAL EXAMINATION: VITAL SIGNS: Temperature 97.4, pulse 94, respiratory rate 20, blood pressure 100/53, pulse oximetry is 97 on room air. GENERAL: The patient alert, oriented, no acute distress. The patient is morbidly obese. HEAD: Normocephalic, atraumatic. EXTREMITIES: Has normal left lower extremity foot and ankle examination. Right has severe edema. Multiple blisters on the medial ankle, lateral calf, and posterior calf with presence of cellulitis. The posterior wound has serous drainage. No signs of skin or subcutaneous necrosis. No tunneling wounds. No foreign body or punctures identified. The patient has pain with elevation of the extre mity. The skin is taut on the calf. No signs of fissuring. No varus or valgus instability noted o f the leg, ankle, or foot. Pulses are diminished secondary to edema. IMAGING: Renal ultrasound, very limited due to body habitus. No gross hydronephrosis. Venous ultr asound, limited visualization of the right mid and distal superficial vein. Right peroneal vein not visualized. No evidence of deep vein thrombosis, lower extremity. Lower extremity CT: Fluid loco ection of the mid to lateral right lower leg measuring 53 mm ____ from the skin, does not involve peterson bcutaneous tissue. No evident abscess. Diffuse edema. LABORATORIES: WBC 19.4, hemoglobin 10.5, hematocrit 31, platelets 262. Sodium 138, potassium 3.5, chloride 109, CO2 of 19, BUN 25, creatinine 1.85. Cultures of the nares negative. Cultures of the right lower extremity, no organisms. Blood cultures and urine cultures are no growth. ASSESSMENT: 1. Right lower extremity edema. 2. Cellulitis. 3. Multiple bullae formation, right ankle and calf. 4. Systemic inflammatory response syndrome. 5. Acute kidney injury. 6. Morbid obesity. PLAN: The patient seen and evaluated. H and P performed. Reviewed labs and imaging studies. The patient on polymicrobial growth with persistent cellulitis and edema. If no improvement, may requir e aspiration, consider with ultrasound guidance. At this time, there is no discrete abscess. Will continue to monitor. May develop over the next couple of days. Discussed possible procedure and wi ll continue to monitor. Nursing recommendations given. Cultures obtained and preliminarily show no growth. Will make further recommendations once definitive results available. Will obtain foot and ankle radiographs. Dictated By: SOFÍA DONNELLY/HANNY Conf#: [id number] DID#: [id number] CC: RYAN BROWN;*[facility]*
[2016-07-27] MEDS: LEVOFLOXACIN 250MG/D5W (PMX) 50 ML IVPB SCH (19:56)
[2016-07-27 20:26] VITALS: BP 111/56; RESP 18
[2016-07-27] MEDS: MICONAZOLE 2% 45 GM VAG CR VAG SCH (21:00)
--- NOTE | 2016-07-27 21:50 | RADRPT ---
PROCEDURE: XR right foot. CLINICAL INDICATION: Right foot edema TECHNIQUE: AP, lateral and oblique views of the right foot were obtained. COMPARISON: None. FINDINGS: Mineralization is within normal limits without focal osteopenia or periosteal reaction. No fracture or osseous lesion is identified. There is no evidence for dislocation. Joint spaces are preserved . Severe soft tissue swelling about the hindfoot and midfoot is present with a questionable ulcerat ion along the plantar aspect at the level of the proximal phalanges. There is no subcutaneous gas . There is no evidence for radiopaque foreign body. RPTAT:HJJR IMPRESSION: Severe soft tissue swelling with equivocal plantar ulcer at the level of the phalanges in but no ass ociated osseous abnormality of the right foot. Physician Mattie Date Time Electronically viewed and signed by Physician Mattie on 07/27/2016 21:50 /
--- NOTE | 2016-07-27 21:51 | RADRPT ---
PROCEDURE: XR right ankle. CLINICAL INDICATION: Edema TECHNIQUE: AP , oblique and lateral views of the right ankle were performed. COMPARISON: None. FINDINGS: There is normal mineralization and alignment. No fracture or osseous lesion is identified. The ankle mortis and talar dome are intact. Severe soft tissue swelling is present. There is no evidence for a radiopaque foreign body. RPTAT:HJJR IMPRESSION: Severe soft tissue swelling without osseous abnormality of the right ankle. Physician Mattie Date Time Electronically viewed and signed by Physician Mattie on 07/27/2016 21:50 /
[2016-07-28] MEDS: SOD CHLORIDE 0.9% 1,000 ML IV SCH ×4 (01:30→17:32)
[2016-07-28] MEDS: HYDROCODONE/APAP (7.5/325) TAB PO PRN ×3 (02:02→20:36)
[2016-07-28 05:20] LABS: POTASSIUM 3.7 mmol/L (3.5-5.1)
[2016-07-28 05:22] LABS: CREATININE 1.62 mg/dl (0.44-1.00)
[2016-07-28 05:23] LABS: CALCIUM 7.5 mg/dl (8.4-10.2); PHOSPHORUS 3.2 mg/dl (2.5-4.9)
[2016-07-28] MEDS: VANCOMYCIN 2 GM in SOD CHLORIDE 0.9% 500 ML IVPB SCH (05:28)
[2016-07-28 05:46] LABS: BASOPHILS % 0.1 % (0.0-2.0); EOSINOPHILS # 0.1 10^3/ul (0.0-0.5); EOSINOPHILS % 0.6 % (0.0-7.0); HEMATOCRIT 30.1 % (37.0-47.0); HEMOGLOBIN 10.2 g/dl (12.0-16.0); LYMPHOCYTES # 1.2 10^3/ul (0.8-2.9); LYMPHOCYTES % 6.4 % (15.0-51.0); MEAN CORPUSCULAR HEMOGLOBIN 29.7 pg (29.0-33.0); MEAN CORPUSCULAR HGB CONC 33.9 g/dl (32.0-37.0); MEAN CORPUSCULAR VOLUME 87.5 fl (82.0-101.0); MEAN PLATELET VOLUME 8.8 fl (7.4-10.4); MONOCYTE # 0.9 10^3/ul (0.3-0.9); NEUTROPHIL # 16.6 10^3/ul (1.6-7.5); NEUTROPHILS % 87.9 % (39.0-77.0); PLATELET COUNT 297 10^3/UL (140-440); RED BLOOD COUNT 3.44 10^6/ul (4.20-5.40); RED CELL DISTRIBUTION WIDTH 16.4 % (11.5-14.5); UNCORRECTED WBC 18.9 10^3/ul (4.8-10.8); WHITE BLOOD COUNT 18.9 10^3/ul (4.8-10.8)
[2016-07-28 05:49] LABS: CONDITION 1; LH ANALYZER COMMENTS 1
[2016-07-28] MEDS: FISH OIL 1,000 MG CAP PO SCH ×2 (08:04→20:30)
[2016-07-28] MEDS: SILVER SULFADIAZINE 1% 25 GM CR TOP SCH (08:05)
[2016-07-28] MEDS: NYSTATIN 30 GM POWDER BTL TOP SCH ×2 (08:05→20:31)
[2016-07-28] MEDS: ACETAMINOPHEN 325 MG TAB PO PRN (08:36)
[2016-07-28 09:16] VITALS: BP 116/56; RESP 18
[2016-07-28] MEDS: HEPARIN 5,000 UNIT/0.5 ML SYG SC SCH ×2 (09:17→20:34)
--- NOTE | 2016-07-28 11:14 | PN ---
DATE: 07/28/2016 SUBJECTIVE: The patient is stable, still complaining of pain in her right lower extremity. No other acute events. No hemoptysis, hematemesis or hematochezia. OBJECTIVE: VITAL SIGNS: Blood pressure is 111/56, respiration 18, pulse 87, temperature 98.3. HEENT: Head is normocephalic. NECK: Supple. HEART: Regular rate. LUNGS: Show diminished breath sounds at the base. ABDOMEN: Soft, nontender to palpation without rebound or guarding. EXTREMITIES: Negative for clubbing, cyanosis, edema on the left leg. Right lower extremity had swe lling, noted bullae, noted erythema. DERMATOLOGIC: No new rashes. MUSCULOSKELETAL: No joint effusion. NEUROLOGIC: Limited exam. LABORATORY DATA: Shows sodium 140, potassium 3.7, chloride 110, BUN 23, creatinine 1.62. White cou nt 18.9, hemoglobin 10.2, hematocrit 38.1, platelet count 297. ASSESSMENT AND PLAN: 1. Nonoliguric acute kidney injury with unknown baseline creatinine. Etiology of acute kidney inju ry is secondary to acute tubular necrosis and septic acute kidney injury. Renal function is improvi ng. Continue current treatment plan, supportive care, renally dose all meds, avoid nephrotoxins. 2. Anemia. Continue to monitor H and H levels. 3. Mineral bone disorder. Monitor calcium and phosphorus levels. 4. Lower extremity cellulitis with underlying bullae. Continue current antibiotic regimen. Follow up with podiatry. 5. Morbid obesity. Continue dietary modification. Dictated By: KIMBERLY MERCADO/HANNY Conf#: [id number] DID#: [id number]
[2016-07-28] MEDS: FAMOTIDINE 20 MG TAB PO SCH (13:42)
--- NOTE | 2016-07-28 15:37 | PN ---
Date/Time of Note Date/Time of Note DATE: 07/28/16 TIME: 15:33 Assessment/Plan VTE Prophylaxis VTE Prophylaxis Intervention: heparin Lines/Catheters IV Catheter Type (from Nrsg): Peripheral IV Urinary Cath still in place: No Assessment/Plan Assessment/Plan 1. Right lower extremity cellulitis: No abscess on CT: on invanz and vanco, discussed with ID today, continue antibiotics 2. Acute renal insufficiency, improving, follow up with BMP/nephrology 3. Anion gap metabolic acidosis 07/22 #1 : resolved 4. Morbid obesity BMI 60 5. Dyslipidemia Subjective 24 Hr Interval Summary Free Text/Dictation afebrile. right leg pain at the wound Exam/Review of Systems Vital Signs Vitals Vital Signs Date Time Temp Pulse Resp B/P Pulse Ox O2 Delivery O2 Flow Rate FiO2 07/28/16 09:16 98.1 83 18 116/56 96 Intake and Output 07/27/16 07/27/16 07/28/16 15:00 23:00 07:00 Intake Total 490 ml 1500 ml 1240 ml Output Total 1200 ml Balance 490 ml 300 ml 1240 ml Exam Constitutional: alert, oriented, well developed Psych: nl mood/affect, no complaints Head: atraumatic, normocephalic Eyes: EOMI, nl conjunctiva, nl lids ENMT: nl external ears & nose, nl lips & teeth, nl nasal mucosa & septum Neck: non-tender, supple Respiratory: clear to auscultation, normal air movement, No congested cough, No crackles/rales, No diminished breath sounds, No intercostal retraction, No labored breathing, No other, No respirations, No tactile fremitus, No wheezing Cardiovascular: nl pulses, regular rate and rhythm, No S3, No S4, No bruits, No diastolic murmur, No edema, No gallop, No irregular rhythm, No jugular venous distention (JVD), No murmurs/extra sounds, No other, No rub, No systolic murmur Gastrointestinal: nl liver, spleen, non-tender, soft, No ascites, No bowel sounds, No distended, No firm, No hepatomegaly, No mass , No other, No rebound or guarding, No splenomegaly, No surgical scars, No tender Musculoskeletal: nl extremities to inspection Extremities: other (right lower extremity start from the area above right ankle to right foot with redness, edema, warmth, and blisters) Neurological: RELIGIOUS EDUCATION COORDINATOR II-XII intact, nl mental status, nl speech, nl strength Results Result Diagram: 07/28/1641907/28/16419 Results 24 hrs Laboratory Tests Test 07/28/16 04:20 Anion Gap 16 Basophils # 0.0 Basophils % 0.1 Blood Morphology Comment Blood Urea Nitrogen 23 H Calcium Level 7.5 L Carbon Dioxide Level 18 L Chloride Level 110 Creatinine 1.62 H Eosinophils # 0.1 Eosinophils % 0.6 Glucose Level 80 Hematocrit 30.1 L Hemoglobin 10.2 L Lymphocytes # 1.2 Lymphocytes % 6.4 L Magnesium Level 2.0 Mean Corpuscular Hemoglobin 29.7 Mean Corpuscular Hemoglobin Concent 33.9 Mean Corpuscular Volume 87.5 Mean Platelet Volume 8.8 Monocytes # 0.9 Monocytes % 5.0 Neutrophils # 16.6 H Neutrophils % 87.9 H Nucleated Red Blood Cells # 0.0 Nucleated Red Blood Cells % 0.0 Phosphorus Level 3.2 Platelet Count 297 Potassium Level 3.7 Red Blood Count 3.44 L Red Cell Distribution Width 16.4 H Sodium Level 140 Vancomycin Level Trough 8.1 L White Blood Count 18.9 H Medications Medications Current Medications Ondansetron HCl (Zofran Inj) 4 mg Q6H PRN IV NAUSEA AND/OR VOMITING Last administered on 07/27/16 09:06; Admin Dose 4 MG; Start 07/23/16 at 17:00 Acetaminophen (Tylenol Tab) 650 mg Q6H PRN PO PAIN LEVEL 1-3 OR FEVER Last administered on 07/28/16 08:36; Admin Dose 650 MG; Start 07/23/16 at 17:00 Docusate Sodium (Colace) 100 mg Q12H PRN PO CONSTIPATION; Start 07/23/16 at 17: 00 Zolpidem Tartrate (Ambien) 5 mg QHS PRN PO SLEEP; Start 07/23/16 at 17:00 Heparin Sodium (Porcine) (Heparin (5000 Units/0.5 ml)) 5,000 unit Q12 SC Last administered on 07/28/16 09:17; Admin Dose 5,000 UNIT; Start 07/23/16 at 21:00 Fish Oil 1000 mg 1,000 mg BID PO Last administered on 07/28/16 08:04; Admin Dose 1,000 MG; Start 07/24/16 at 10:00 Sodium Chloride (NS) 1,000 ml @ 80 mls/hr [id number] IV Last administered on 03:16; Admin Dose 80 MLS/HR; Start 07/24/16 at 10:00 Morphine Sulfate (morphine) 4 mg Q4H PRN IV SEVERE PAIN LEVEL 7-10; Start at 13:00 Acetaminophen/ Hydrocodone Bitart ([place] (7.5-325)) 1 tab Q4H PRN PO PAIN LEVEL 4-6 Last administered on 07/28/16 11:20; Admin Dose 1 TAB; Start 07/24/16 at 11:00 Famotidine 20 mg 20 mg Q24H PO Last administered on 07/28/16 13:42; Admin Dose 20 MG; Start 07/24/16 at 14:00 Levofloxacin/ Dextrose (Levaquin 250 Mg/ D5W 50 ml (Pmx)) 50 ml @ 50 mls/hr Q24H IVPB Last administered on 07/27/16 19:56; Admin Dose 50 MLS/HR; Start 07/24 at 19:30 Nystatin (Nystatin Powder) 1 applic BID TOP Last administered on 07/28/16 08:05 ; Admin Dose 1 APPLIC; Start 07/25/16 at 12:30; Stop 08/01/16 at 12:29 Miconazole Nitrate 1 applic 1 applic HS VAG Last administered on 07/25/16 21:20 ; Admin Dose 1 APPLIC; Start 07/25/16 at 21:00; Stop 07/28/16 at 20:59 Ertapenem/Sodium Chloride (Invanz/NS) 100 ml @ 200 mls/hr Q24H IVPB Last administered on 07/27/16 17:45; Admin Dose 200 MLS/HR; Start 07/26/16 at 17:00 Silver Sulfadiazine (Thermazene 1% 25 Gm) 1 applic DAILY TOP Last administered on 07/28/16 08:05; Admin Dose 1 APPLIC; Start 07/26/16 at 17:00 Vitamin A/Vitamin D 1 applic 1 applic DAILY PRN TOP DRY MOUTH Last administered on 07/27/16 15:10; Admin Dose 1 APPLIC; Start 07/27/16 at 14:00 Vancomycin HCl/ Sodium Chloride (Vancocin/NS) 500 ml @ 125 mls/hr Q24H IVPB ; Start 07/29/16 at 05:00 HARRY ROMERO MD Jul 28, 2016 15:37
--- NOTE | 2016-07-28 15:53 | CONS ---
Date/Time of Note Date/Time of Note DATE: 07/28/16 TIME: 15:51 Assessment/Plan Assessment/Plan Chief Complaint/Hosp Course SUBJECTIVE: No acute changes. The patient is alert, lying comfortably in bed, no fevers ANTIMICROBIALS: IV vancomycin Levaquin, Invanz. OBJECTIVE: GENERAL: This is a morbidly obese, well-developed, middle-aged white woman who is lying comfortably in bed. HEENT: Head atraumatic, normocephalic. Sclerae anicteric. Buccal mucosa pink. NECK: Obese. CHEST: Rise symmetrical. Breath sounds clear. HEART: S1, S2. ABDOMEN: Soft, bowel tones present. EXTREMITIES: With right lower extremity edema, erythema and blistering, erythema descending. ASSESSMENT: 1. Right lower extremity cellulitis with blisters. 2. Morbid obesity. 3. Systemic inflammatory response syndrome with low grade fevers and leukocytosis. 4. Acute kidney injury, possible chronic kidney disease. 5. SIRS 2 to #1 PLAN: Clinically stable, RLE erythema improving, continue abx, RLE elevation, appreciate Dr Rae's recommendations DW staff Problems: Consultation Date/Type/Reason Admit Date/Time Jul 23, 2016 at 15:05 Initial Consult Date 07/24/16 Type of Consultation: ID Exam/Review of Systems Vital Signs Vitals Vital Signs Date Time Temp Pulse Resp B/P Pulse Ox O2 Delivery O2 Flow Rate FiO2 07/28/16 09:16 98.1 83 18 116/56 96 Intake and Output 07/27/16 07/27/16 07/28/16 15:00 23:00 07:00 Intake Total 490 ml 1500 ml 1240 ml Output Total 1200 ml Balance 490 ml 300 ml 1240 ml Results Result Diagram: 07/28/16 0420 07/28/16 0420 Results 24 hrs Laboratory Tests Test 07/28/16 04:20 Anion Gap 16 Basophils # 0.0 Basophils % 0.1 Blood Morphology Comment Blood Urea Nitrogen 23 H Calcium Level 7.5 L Carbon Dioxide Level 18 L Chloride Level 110 Creatinine 1.62 H Eosinophils # 0.1 Eosinophils % 0.6 Glucose Level 80 Hematocrit 30.1 L Hemoglobin 10.2 L Lymphocytes # 1.2 Lymphocytes % 6.4 L Magnesium Level 2.0 Mean Corpuscular Hemoglobin 29.7 Mean Corpuscular Hemoglobin Concent 33.9 Mean Corpuscular Volume 87.5 Mean Platelet Volume 8.8 Monocytes # 0.9 Monocytes % 5.0 Neutrophils # 16.6 H Neutrophils % 87.9 H Nucleated Red Blood Cells # 0.0 Nucleated Red Blood Cells % 0.0 Phosphorus Level 3.2 Platelet Count 297 Potassium Level 3.7 Red Blood Count 3.44 L Red Cell Distribution Width 16.4 H Sodium Level 140 Vancomycin Level Trough 8.1 L White Blood Count 18.9 H Medications Medications Current Medications Ondansetron HCl (Zofran Inj) 4 mg Q6H PRN IV NAUSEA AND/OR VOMITING Last administered on 07/27/16 09:06; Admin Dose 4 MG; Start 07/23/16 at 17:00 Acetaminophen (Tylenol Tab) 650 mg Q6H PRN PO PAIN LEVEL 1-3 OR FEVER Last administered on 07/28/16 08:36; Admin Dose 650 MG; Start 07/23/16 at 17:00 Docusate Sodium (Colace) 100 mg Q12H PRN PO CONSTIPATION; Start 07/23/16 at 17: 00 Zolpidem Tartrate (Ambien) 5 mg QHS PRN PO SLEEP; Start 07/23/16 at 17:00 Heparin Sodium (Porcine) (Heparin (5000 Units/0.5 ml)) 5,000 unit Q12 SC Last administered on 07/28/16 09:17; Admin Dose 5,000 UNIT; Start 07/23/16 at 21:00 Fish Oil 1000 mg 1,000 mg BID PO Last administered on 07/28/16 08:04; Admin Dose 1,000 MG; Start 07/24/16 at 10:00 Sodium Chloride (NS) 1,000 ml @ 80 mls/hr [id number] IV Last administered on 03:16; Admin Dose 80 MLS/HR; Start 07/24/16 at 10:00 Morphine Sulfate (morphine) 4 mg Q4H PRN IV SEVERE PAIN LEVEL 7-10; Start at 13:00 Acetaminophen/ Hydrocodone Bitart ([place] (7.5-325)) 1 tab Q4H PRN PO PAIN LEVEL 4-6 Last administered on 07/28/16 11:20; Admin Dose 1 TAB; Start 07/24/16 at 11:00 Famotidine 20 mg 20 mg Q24H PO Last administered on 07/28/16 13:42; Admin Dose 20 MG; Start 07/24/16 at 14:00 Levofloxacin/ Dextrose (Levaquin 250 Mg/ D5W 50 ml (Pmx)) 50 ml @ 50 mls/hr Q24H IVPB Last administered on 07/27/16 19:56; Admin Dose 50 MLS/HR; Start 07/24 at 19:30 Nystatin (Nystatin Powder) 1 applic BID TOP Last administered on 07/28/16 08:05 ; Admin Dose 1 APPLIC; Start 07/25/16 at 12:30; Stop 08/01/16 at 12:29 Miconazole Nitrate 1 applic 1 applic HS VAG Last administered on 07/25/16 21:20 ; Admin Dose 1 APPLIC; Start 07/25/16 at 21:00; Stop 07/28/16 at 20:59 Ertapenem/Sodium Chloride (Invanz/NS) 100 ml @ 200 mls/hr Q24H IVPB Last administered on 07/27/16 17:45; Admin Dose 200 MLS/HR; Start 07/26/16 at 17:00 Silver Sulfadiazine (Thermazene 1% 25 Gm) 1 applic DAILY TOP Last administered on 07/28/16 08:05; Admin Dose 1 APPLIC; Start 07/26/16 at 17:00 Vitamin A/Vitamin D 1 applic 1 applic DAILY PRN TOP DRY MOUTH Last administered on 07/27/16 15:10; Admin Dose 1 APPLIC; Start 07/27/16 at 14:00 Vancomycin HCl/ Sodium Chloride (Vancocin/NS) 500 ml @ 125 mls/hr Q24H IVPB ; Start 07/29/16 at 05:00 JEFF JENKINS NP Jul 28, 2016 15:53
[2016-07-28 16:25] LABS: MICROALBUMIN 2.6 mg/dL
[2016-07-28] MEDS: ERTAPENEM SODIUM 1 GM in SOD CHLORIDE 0.9% 100 ML IVPB SCH (17:31)
--- NOTE | 2016-07-28 17:58 | CONS ---
DATE OF ADMISSION: 07/23/2016 DATE OF CONSULTATION: SUBJECTIVE FINDINGS: The patient being followed for right lower extremity cellulitis with blister formation. The patient denies fever. Relates fatigue, pain stable. The patient had radiographs which do not reveal any foreign body, fracture or soft tissue emphysema. The patient currently on Invanz and vancomycin. Cultures reveal no growth from exudate, negative blood cultures, negative urine cultures. OBJECTIVE FINDINGS: VITAL SIGNS: Temperature 98.1, pulse is 83, respiratory rate 18, blood pressure 116/56, pulse oximetry is 96%. GENERAL: Patient awake, lying supine, leg is elevated. EXTREMITIES: There is persistent, severe edema, right lower extremity, ankle and foot with multiple blister formations, so 2+ pitting edema and erythema involving the foot, ankle and calf. No instability noted of the leg, ankle, or foot. The patient has 2+ DP pulse, which is improved from last exam. X-rays, soft tissue swelling, normal ankle mortise. No evidence of radiopaque foreign body and no subcutaneous gas. LABORATORIES: WBC 18.9, hemoglobin 10.2, hematocrit 30.1, platelets 297. Sodium 140, potassium 3.7, chloride 110, CO2 18, BUN 23, creatinine 1.62. ASSESSMENT: 1. Right lower extremity edema. 2. Right lower extremity cellulitis. 3. Multiple bullae, right ankle and calf. 4. Systemic inflammatory response syndrome. 5. Acute kidney injury. 6. Morbid obesity. PLAN: Patient seen and evaluated, reviewed CT scan and radiographs. Discussed with the patient. Reviewed cultures. Would recommend continued observation, likely if consolidation of infection, at which point may be amenable for aspiration with ultrasound guidance. At this time no discrete abscess noted. Continue current nursing recommendations. Dictated By: SOFÍA MARINO DPM RB/NTS Conf#: [id number] DID#: [id number] MTDD
[2016-07-28 19:24] VITALS: BP 112/54; RESP 16
[2016-07-28] MEDS: LEVOFLOXACIN 250MG/D5W (PMX) 50 ML IVPB SCH (19:49)
[2016-07-29] MEDS: SOD CHLORIDE 0.9% 1,000 ML IV SCH ×3 (02:30→14:05)
[2016-07-29] MEDS: VANCOMYCIN 2 GM in SOD CHLORIDE 0.9% 500 ML IVPB SCH (04:48)
[2016-07-29] MEDS: HYDROCODONE/APAP (7.5/325) TAB PO PRN ×3 (04:52→21:34)
[2016-07-29] MEDS: SILVER SULFADIAZINE 1% 25 GM CR TOP SCH ×2 (04:53→08:50)
[2016-07-29 06:33] LABS: POTASSIUM 3.8 mmol/L (3.5-5.1)
[2016-07-29 06:35] LABS: CREATININE 1.42 mg/dl (0.44-1.00)
[2016-07-29 06:36] LABS: CALCIUM 7.6 mg/dl (8.4-10.2)
[2016-07-29 07:54] LABS: BASOPHILS % 0.1 % (0.0-2.0); EOSINOPHILS # 0.2 10^3/ul (0.0-0.5); EOSINOPHILS % 1.6 % (0.0-7.0); HEMATOCRIT 46.4 % (37.0-47.0); HEMOGLOBIN 15.4 g/dl (12.0-16.0); LYMPHOCYTES # 1.5 10^3/ul (0.8-2.9); LYMPHOCYTES % 13.5 % (15.0-51.0); MEAN CORPUSCULAR HEMOGLOBIN 29.5 pg (29.0-33.0); MEAN CORPUSCULAR HGB CONC 33.1 g/dl (32.0-37.0); MEAN CORPUSCULAR VOLUME 89.1 fl (82.0-101.0); MEAN PLATELET VOLUME 9.1 fl (7.4-10.4); MONOCYTE # 0.6 10^3/ul (0.3-0.9); MONOCYTES % 5.5 % (0.0-11.0); NEUTROPHIL # 8.5 10^3/ul (1.6-7.5); NEUTROPHILS % 79.3 % (39.0-77.0); PLATELET COUNT 188 10^3/UL (140-440); RED BLOOD COUNT 5.21 10^6/ul (4.20-5.40); RED CELL DISTRIBUTION WIDTH 16.4 % (11.5-14.5); UNCORRECTED WBC 10.8 10^3/ul (4.8-10.8); WHITE BLOOD COUNT 10.8 10^3/ul (4.8-10.8)
[2016-07-29 07:59] LABS: CONDITION 1; LH ANALYZER COMMENTS 1
[2016-07-29 08:06] VITALS: BP 130/67; RESP 20
[2016-07-29] MEDS: NYSTATIN 30 GM POWDER BTL TOP SCH ×2 (08:49→21:35)
[2016-07-29] MEDS: FISH OIL 1,000 MG CAP PO SCH ×2 (08:49→21:34)
[2016-07-29] MEDS: HEPARIN 5,000 UNIT/0.5 ML SYG SC SCH ×2 (09:06→21:44)
--- NOTE | 2016-07-29 10:58 | PN ---
DATE: 07/29/2016 SUBJECTIVE: The patient is stable, no acute events overnight. No fevers, chills, nausea, vomiting. OBJECTIVE: VITAL SIGNS: Blood pressure 130/67, respirations 20, pulse 77, temperature 97.4. HEENT: Head is normocephalic. NECK: Supple. HEART: Regular rate. LUNGS: Show diminished breath sounds at bases. ABDOMEN: Soft, nontender to palpation. No rebound or guarding. EXTREMITIES: Negative for clubbing, cyanosis. No edema in the left leg. Right lower extremity is in a dressing, clean, dry, intact. DERMATOLOGIC: No rashes. MUSCULOSKELETAL: No joint effusions. NEUROLOGIC: No change in exam. MEDICATIONS: The patient's medications have been reviewed. LABORATORY DATA: Showed sodium 143, potassium 3.9, chloride 112, BUN 20, creatinine 1.42. ASSESSMENT AND PLAN: 1. Nonoliguric acute kidney injury with unknown baseline creatinine. Etiology secondary to acute t ubular necrosis, possible septic acute kidney injury. Renal function is slowly improving. Continue current treatment plan, supportive care, renally dose all meds. 2. Anemia. Continue to monitor hemoglobin and hematocrit levels. 3. Mineral bone disorder. Continue to monitor calcium and phosphorus levels. 4. Lower extremity cellulitis. Continue current antibiotic regimen. Follow up with podiatry. 5. Morbid obesity. Continue dietary modification. Dictated By: KIMBERLY MERCADO/HANNY Conf#: [id number] DID#: [id number]
[2016-07-29] MEDS: FAMOTIDINE 20 MG TAB PO SCH (14:05)
--- NOTE | 2016-07-29 15:27 | PN ---
Date/Time of Note Date/Time of Note DATE: 07/29/16 TIME: 15:25 Assessment/Plan VTE Prophylaxis VTE Prophylaxis Intervention: SCD's Lines/Catheters IV Catheter Type (from Nrs): Peripheral IV Urinary Cath still in place: No Assessment/Plan Assessment/Plan 1. Urinary retention due to prostate cancer and urethral stricture, s/p dilatation, keep Jiménez, follow up with urology for discharge plan(Jiménez) 2. Metastatic adenocarcinoma of the prostate, on leuprolide monthly 3. Constipation, laxatives Subjective 24 Hr Interval Summary Free Text/Dictation no pain today. no fever Exam/Review of Systems Vital Signs Vitals Vital Signs Date Time Temp Pulse Resp B/P Pulse Ox O2 Delivery O2 Flow Rate FiO2 07/29/16 08:06 97.4 77 20 130/67 97 Intake and Output 07/28/16 07/28/16 07/29/16 15:00 23:00 07:00 Intake Total 500 ml 990 ml 1040 ml Output Total 1500 ml Balance 500 ml -510 ml 1040 ml Exam Constitutional: alert, oriented, well developed Psych: nl mood/affect, no complaints Head: atraumatic, normocephalic Eyes: EOMI, PERRL, nl conjunctiva, nl lids ENMT: mucosa pink and moist, nl external ears & nose, nl lips & teeth, nl nasal mucosa & septum Neck: non-tender, supple Respiratory: clear to auscultation, normal air movement, No congested cough, No crackles/rales, No diminished breath sounds, No intercostal retraction, No labored breathing, No other, No respirations, No tactile fremitus, No wheezing Cardiovascular: nl pulses, regular rate and rhythm, No S3, No S4, No bruits, No diastolic murmur, No edema, No gallop, No irregular rhythm, No jugular venous distention (JVD), No murmurs/extra sounds, No other, No rub, No systolic murmur Gastrointestinal: nl liver, spleen, non-tender, soft, No ascites, No bowel sounds, No distended, No firm, No hepatomegaly, No mass , No other, No rebound or guarding, No splenomegaly, No surgical scars, No tender Musculoskeletal: nl extremities to inspection Neurological: DOG TRAINER II-XII intact, nl mental status, nl speech, nl strength Skin: nl turgor, rash or lesions Lymph: nl lymph nodes Results Result Diagram: 07/29/16 0520 07/29/16 0510 Results 24 hrs Laboratory Tests Test 07/29/16 05:10 07/29/16 05:20 07/29/16 11:32 Anion Gap 15 Blood Urea Nitrogen 20 Calcium Level 7.6 L Carbon Dioxide Level 20 L Chloride Level 112 H Creatinine 1.42 H Glucose Level 70 Potassium Level 3.8 Sodium Level 143 Basophils # 0.0 Basophils % 0.1 Blood Morphology Comment Eosinophils # 0.2 Eosinophils % 1.6 Hematocrit 46.4 # Hemoglobin 15.4 # Lymphocytes # 1.5 Lymphocytes % 13.5 L Mean Corpuscular Hemoglobin 29.5 Mean Corpuscular Hemoglobin Concent 33.1 Mean Corpuscular Volume 89.1 Mean Platelet Volume 9.1 Monocytes # 0.6 Monocytes % 5.5 Neutrophils # 8.5 H Neutrophils % 79.3 H Nucleated Red Blood Cells # 0.0 Nucleated Red Blood Cells % 0.0 Platelet Count 188 # Red Blood Count 5.21 # Red Cell Distribution Width 16.4 H White Blood Count 10.8 # Lab Scanned Report REFERENCE LAB Medications Medications Current Medications Ondansetron HCl (Zofran Inj) 4 mg Q6H PRN IV NAUSEA AND/OR VOMITING Last administered on 07/27/16 09:06; Admin Dose 4 MG; Start 07/23/16 at 17:00 Acetaminophen (Tylenol Tab) 650 mg Q6H PRN PO PAIN LEVEL 1-3 OR FEVER Last administered on 07/28/16 08:36; Admin Dose 650 MG; Start 07/23/16 at 17:00 Docusate Sodium (Colace) 100 mg Q12H PRN PO CONSTIPATION; Start 07/23/16 at 17: 00 Zolpidem Tartrate (Ambien) 5 mg QHS PRN PO SLEEP; Start 07/23/16 at 17:00 Heparin Sodium (Porcine) (Heparin (5000 Units/0.5 ml)) 5,000 unit Q12 SC Last administered on 07/29/16 09:06; Admin Dose 5,000 UNIT; Start 07/23/16 at 21:00 Fish Oil 1000 mg 1,000 mg BID PO Last administered on 07/29/16 08:49; Admin Dose 1,000 MG; Start 07/24/16 at 10:00 Sodium Chloride (NS) 1,000 ml @ 80 mls/hr [id number] IV Last administered on 12:01; Admin Dose 80 MLS/HR; Start 07/24/16 at 10:00 Morphine Sulfate (morphine) 4 mg Q4H PRN IV SEVERE PAIN LEVEL 7-10; Start at 13:00 Acetaminophen/ Hydrocodone Bitart ([place] (7.5-325)) 1 tab Q4H PRN PO PAIN LEVEL 4-6 Last administered on 07/29/16 08:49; Admin Dose 1 TAB; Start 07/24/16 at 11:00 Famotidine 20 mg 20 mg Q24H PO Last administered on 07/29/16 14:05; Admin Dose 20 MG; Start 07/24/16 at 14:00 Levofloxacin/ Dextrose (Levaquin 250 Mg/ D5W 50 ml (Pmx)) 50 ml @ 50 mls/hr Q24H IVPB Last administered on 07/28/16 19:49; Admin Dose 50 MLS/HR; Start 07/24 at 19:30 Nystatin 1 applic 1 applic BID TOP Last administered on 07/29/16 08:49; Admin Dose 1 APPLIC; Start 07/25/16 at 12:30; Stop 08/01/16 at 12:29 Ertapenem/Sodium Chloride (Invanz/NS) 100 ml @ 200 mls/hr Q24H IVPB Last administered on 07/28/16 17:31; Admin Dose 200 MLS/HR; Start 07/26/16 at 17:00 Silver Sulfadiazine (Thermazene 1% 25 Gm) 1 applic DAILY TOP Last administered on 07/29/16 08:50; Admin Dose 1 APPLIC; Start 07/26/16 at 17:00 Vitamin A/Vitamin D 1 applic 1 applic DAILY PRN TOP DRY MOUTH Last administered on 07/27/16 15:10; Admin Dose 1 APPLIC; Start 07/27/16 at 14:00 Vancomycin HCl/ Sodium Chloride (Vancocin/NS) 500 ml @ 125 mls/hr Q24H IVPB Last administered on 07/29/16 04:48; Admin Dose 125 MLS/HR; Start 07/29/16 at 05: 00 HARRY ROMERO MD Jul 29, 2016 15:27
--- NOTE | 2016-07-29 15:33 | PN ---
Date/Time of Note Date/Time of Note DATE: 07/29/16 TIME: 15:31 Assessment/Plan VTE Prophylaxis VTE Prophylaxis Intervention: heparin Lines/Catheters IV Catheter Type (from Nrs): Peripheral IV Urinary Cath still in place: No Assessment/Plan Assessment/Plan 1. Right lower extremity cellulitis, on invanz and vanco, normalized WBC 2. Acute renal insufficiency, improving, follow up with BMP/nephrology 3. Anion gap metabolic acidosis 07/22 #1 : resolved 4. Morbid obesity BMI 60 5. Dyslipidemia Subjective 24 Hr Interval Summary Free Text/Dictation afebrile Exam/Review of Systems Vital Signs Vitals Vital Signs Date Time Temp Pulse Resp B/P Pulse Ox O2 Delivery O2 Flow Rate FiO2 07/29/16 08:06 97.4 77 20 130/67 97 Intake and Output 07/28/16 07/28/16 07/29/16 15:00 23:00 07:00 Intake Total 500 ml 990 ml 1040 ml Output Total 1500 ml Balance 500 ml -510 ml 1040 ml Exam Constitutional: alert, oriented, well developed Psych: nl mood/affect, no complaints Head: atraumatic, normocephalic Eyes: EOMI, PERRL, nl conjunctiva, nl lids, nl sclera ENMT: nl external ears & nose, nl lips & teeth, nl nasal mucosa & septum Neck: non-tender, supple Respiratory: clear to auscultation, normal air movement, No congested cough, No crackles/rales, No diminished breath sounds, No intercostal retraction, No labored breathing, No other, No respirations, No tactile fremitus, No wheezing Cardiovascular: nl pulses, regular rate and rhythm, No S3, No S4, No bruits, No diastolic murmur, No edema, No gallop, No irregular rhythm, No jugular venous distention (JVD), No murmurs/extra sounds, No other, No rub, No systolic murmur Gastrointestinal: nl liver, spleen, non-tender, soft, No ascites, No bowel sounds, No distended, No firm, No hepatomegaly, No mass , No other, No rebound or guarding, No splenomegaly, No surgical scars, No tender Musculoskeletal: other (right lower extremity lesion) Extremities: normal pulses, other (right lower extremity close to ankle with resness and swelling, less than that os yesterday) Neurological: CARGO AGENT II-XII intact, nl mental status, nl speech, nl strength Results Result Diagram: 07/29/16 0520 07/29/16 0510 Results 24 hrs Laboratory Tests Test 07/29/16 05:10 07/29/16 05:20 07/29/16 11:32 Anion Gap 15 Blood Urea Nitrogen 20 Calcium Level 7.6 L Carbon Dioxide Level 20 L Chloride Level 112 H Creatinine 1.42 H Glucose Level 70 Potassium Level 3.8 Sodium Level 143 Basophils # 0.0 Basophils % 0.1 Blood Morphology Comment Eosinophils # 0.2 Eosinophils % 1.6 Hematocrit 46.4 # Hemoglobin 15.4 # Lymphocytes # 1.5 Lymphocytes % 13.5 L Mean Corpuscular Hemoglobin 29.5 Mean Corpuscular Hemoglobin Concent 33.1 Mean Corpuscular Volume 89.1 Mean Platelet Volume 9.1 Monocytes # 0.6 Monocytes % 5.5 Neutrophils # 8.5 H Neutrophils % 79.3 H Nucleated Red Blood Cells # 0.0 Nucleated Red Blood Cells % 0.0 Platelet Count 188 # Red Blood Count 5.21 # Red Cell Distribution Width 16.4 H White Blood Count 10.8 # Lab Scanned Report REFERENCE LAB Medications Medications Current Medications Ondansetron HCl (Zofran Inj) 4 mg Q6H PRN IV NAUSEA AND/OR VOMITING Last administered on 07/27/16 09:06; Admin Dose 4 MG; Start 07/23/16 at 17:00 Acetaminophen (Tylenol Tab) 650 mg Q6H PRN PO PAIN LEVEL 1-3 OR FEVER Last administered on 07/28/16 08:36; Admin Dose 650 MG; Start 07/23/16 at 17:00 Docusate Sodium (Colace) 100 mg Q12H PRN PO CONSTIPATION; Start 07/23/16 at 17: 00 Zolpidem Tartrate (Ambien) 5 mg QHS PRN PO SLEEP; Start 07/23/16 at 17:00 Heparin Sodium (Porcine) (Heparin (5000 Units/0.5 ml)) 5,000 unit Q12 SC Last administered on 07/29/16 09:06; Admin Dose 5,000 UNIT; Start 07/23/16 at 21:00 Fish Oil 1000 mg 1,000 mg BID PO Last administered on 07/29/16 08:49; Admin Dose 1,000 MG; Start 07/24/16 at 10:00 Sodium Chloride (NS) 1,000 ml @ 80 mls/hr [id number] IV Last administered on 12:01; Admin Dose 80 MLS/HR; Start 07/24/16 at 10:00 Morphine Sulfate (morphine) 4 mg Q4H PRN IV SEVERE PAIN LEVEL 7-10; Start at 13:00 Acetaminophen/ Hydrocodone Bitart ([place] (7.5-325)) 1 tab Q4H PRN PO PAIN LEVEL 4-6 Last administered on 07/29/16 08:49; Admin Dose 1 TAB; Start 07/24/16 at 11:00 Famotidine 20 mg 20 mg Q24H PO Last administered on 07/29/16 14:05; Admin Dose 20 MG; Start 07/24/16 at 14:00 Levofloxacin/ Dextrose (Levaquin 250 Mg/ D5W 50 ml (Pmx)) 50 ml @ 50 mls/hr Q24H IVPB Last administered on 07/28/16 19:49; Admin Dose 50 MLS/HR; Start 07/24 at 19:30 Nystatin 1 applic 1 applic BID TOP Last administered on 07/29/16 08:49; Admin Dose 1 APPLIC; Start 07/25/16 at 12:30; Stop 08/01/16 at 12:29 Ertapenem/Sodium Chloride (Invanz/NS) 100 ml @ 200 mls/hr Q24H IVPB Last administered on 07/28/16 17:31; Admin Dose 200 MLS/HR; Start 07/26/16 at 17:00 Silver Sulfadiazine (Thermazene 1% 25 Gm) 1 applic DAILY TOP Last administered on 07/29/16 08:50; Admin Dose 1 APPLIC; Start 07/26/16 at 17:00 Vitamin A/Vitamin D 1 applic 1 applic DAILY PRN TOP DRY MOUTH Last administered on 07/27/16 15:10; Admin Dose 1 APPLIC; Start 07/27/16 at 14:00 Vancomycin HCl/ Sodium Chloride (Vancocin/NS) 500 ml @ 125 mls/hr Q24H IVPB Last administered on 07/29/16 04:48; Admin Dose 125 MLS/HR; Start 07/29/16 at 05: 00 HARRY ROMERO MD Jul 29, 2016 15:33
[2016-07-29] MEDS: ERTAPENEM SODIUM 1 GM in SOD CHLORIDE 0.9% 100 ML IVPB SCH (16:28)
--- NOTE | 2016-07-29 16:57 | PN ---
DATE: 07/29/2016 SUBJECTIVE: No acute changes. The patient is alert, feels good, looks comfortable. No fevers. LABORATORY DATA: WBC today 10.8, neutrophils 79.3. BUN 20, creatinine 1.42. MICROBIOLOGY: All cultures have been negative. Nares swab revealed no MRSA. Drainage from her rig ht foot negative. ANTIMICROBIALS: The patient is on: 1. Invanz. 2. Vancomycin. 3. Levaquin. PHYSICAL EXAMINATION: GENERAL: This is a morbidly obese middle-aged white woman who is lying comfortably in bed. HEENT: Head atraumatic, normocephalic. Sclerae anicteric. Buccal mucosa pink. NECK: Obese. CHEST: Rise symmetrical. Breath sounds clear. HEART: S1, S2. ABDOMEN: Soft, bowel sounds present. EXTREMITIES: Without cyanosis. Right lower extremity edema with blisters. Erythema is decreased d own to below knee. ASSESSMENT: 1. Systemic inflammatory response syndrome. 2. Right lower extremity severe cellulitis, improving. 3. Morbid obesity. 4. Acute kidney injury. PLAN: The patient is overall improving. White blood cell count tracing down. She is being seen by podiatry. We will continue her on current antimicrobials. Keep right lower extremity elevated. Dictated By: JEFF JENKINS [employer] F[employer] LABORER for BRYANT HERNANDEZ/HANNY Conf#: [id number] DID#: [id number]
[2016-07-29 20:10] VITALS: BP 143/77; RESP 18
[2016-07-29] MEDS: LEVOFLOXACIN 250MG/D5W (PMX) 50 ML IVPB SCH (21:34)
[2016-07-30] MEDS: SOD CHLORIDE 0.9% 1,000 ML IV SCH ×2 (02:17→17:20)
[2016-07-30] MEDS: VANCOMYCIN 2 GM in SOD CHLORIDE 0.9% 500 ML IVPB SCH (05:18)
[2016-07-30] MEDS: HYDROCODONE/APAP (7.5/325) TAB PO PRN ×3 (05:58→20:23)
[2016-07-30 06:18] LABS: ADD SCAN DIFF NO
[2016-07-30 06:20] LABS: BASOPHILS % 0.3 % (0.0-2.0); EOSINOPHILS # 0.2 10^3/ul (0.0-0.5); EOSINOPHILS % 1.6 % (0.0-7.0); HEMATOCRIT 30.7 % (37.0-47.0); HEMOGLOBIN 9.6 g/dl (12.0-16.0); LYMPHOCYTES # 1.6 10^3/ul (0.8-2.9); MEAN CORPUSCULAR HEMOGLOBIN 28.9 pg (29.0-33.0); MEAN CORPUSCULAR HGB CONC 31.3 g/dl (32.0-37.0); MEAN CORPUSCULAR VOLUME 92.5 fl (82.0-101.0); MEAN PLATELET VOLUME 10.3 fl (7.4-10.4); MONOCYTE # 0.8 10^3/ul (0.3-0.9); MONOCYTES % 7.1 % (0.0-11.0); NEUTROPHIL # 8.6 10^3/ul (1.6-7.5); NEUTROPHILS % 74.7 % (39.0-77.0); PLATELET COUNT 379 10^3/UL (140-415); RED BLOOD COUNT 3.32 10^6/ul (4.20-5.40); RED CELL DISTRIBUTION WIDTH 15.5 % (11.5-14.5); WHITE BLOOD COUNT 11.5 10^3/ul (4.8-10.8)
[2016-07-30 06:44] LABS: POTASSIUM 3.7 mmol/L (3.5-5.1)
[2016-07-30 06:46] LABS: CREATININE 1.31 mg/dl (0.44-1.00)
[2016-07-30 06:47] LABS: CALCIUM 7.1 mg/dl (8.4-10.2)
[2016-07-30 06:48] LABS: MAGNESIUM 1.9 mg/dl (1.7-2.5)
[2016-07-30 07:54] VITALS: BP 117/57; RESP 22
[2016-07-30] MEDS: FISH OIL 1,000 MG CAP PO SCH ×2 (09:00→20:23)
[2016-07-30] MEDS: SILVER SULFADIAZINE 1% 25 GM CR TOP SCH (09:01)
[2016-07-30] MEDS: NYSTATIN 30 GM POWDER BTL TOP SCH ×2 (09:01→20:29)
[2016-07-30] MEDS: HEPARIN 5,000 UNIT/0.5 ML SYG SC SCH ×2 (09:06→20:28)
--- NOTE | 2016-07-30 10:07 | PN ---
DATE: 07/30/2016 SUBJECTIVE: The patient is stable, continues to have pain in her lower extremity. Tolerating antib iotics well. No other events noted. No hemoptysis, hematemesis, hematochezia. OBJECTIVE: VITAL SIGNS: Blood pressure 117/56, respiration 22, pulse 79, temperature 98.2. I's and O's reviewed. HEENT: Head is normocephalic. NECK: Supple. HEART: Regular rate. LUNGS: Show diminished breath sounds at base. ABDOMEN: Soft, nontender to palpation. No rebound or guarding. EXTREMITIES: Negative for clubbing, cyanosis, edema in the left leg. Right lower extremity continu es to have edema with underlying blisters. NEUROLOGIC: No change in exam. DERMATOLOGIC: No new rashes. MEDICATIONS: Reviewed. LABORATORY DATA: Sodium 141, potassium 3.7, BUN 17, creatinine 1.31. ASSESSMENT AND PLAN: 1. Nonoliguric acute kidney injury with unknown baseline creatinine. Etiology is secondary to acut e tubular necrosis, possible septic acute kidney injury. Renal function is slowly improving. Erickson nue IV antibiotics, continue supportive care, renal dose all meds, and avoid nephrotoxins. 2. Anemia. Continue to monitor hemoglobin and hematocrit levels. 3. Mineral bone disorder. Continue to monitor calcium and phosphorus levels. 4. Lower extremity cellulitis with blisters. Continue current antibiotic regimen. 5. Morbid obesity. Continue dietary modification. Dictated By: KIMBERLY MERCADO/HANNY Conf#: [id number] DID#: [id number]
--- NOTE | 2016-07-30 12:50 | PN ---
DATE: 07/30/2016 SUBJECTIVE: No acute events. The patient is alert, looks comfortable. Denies pain, no . No fevers. WBC 11.5, no shift, no bands. BUN 17, creatinine 1.3. ANTIMICROBIALS: 1. Vancomycin. 2. Invanz. 3. Levaquin. PHYSICAL EXAMINATION: GENERAL: This is a morbidly obese middle-aged white woman who is lying comfortably in bed. HEENT: Head atraumatic, normocephalic. Sclerae anicteric. Buccal mucosa pink. NECK: Obese. CHEST: Rise symmetrical. Breath sounds clear. HEART: S1, S2. ABDOMEN: Obese, soft, bowel tones present. EXTREMITIES: With right lower extremity edema, erythema, blistering and drainage. ASSESSMENT: 1. Systemic inflammatory response syndrome. 2. Right lower extremity cellulitis. 3. Diabetes. 4. Morbid obesity. 5. Acute kidney injury. PLAN: The patient remains stable. She is being followed by podiatry. Right lower extremity with e rythema tracing down, still with significant edema. Continue present care, antibiotics. Await for clinical improvement. Dictated By: JEFF JENKINS HAT BRIM CURLER for BRYANT HERNANDEZ/HANNY Conf#: [id number] DID#: [id number]
[2016-07-30] MEDS: FAMOTIDINE 20 MG TAB PO SCH (14:13)
--- NOTE | 2016-07-30 15:07 | PN ---
Date/Time of Note Date/Time of Note DATE: 07/30/16 TIME: 15:05 Assessment/Plan VTE Prophylaxis VTE Prophylaxis Intervention: heparin Lines/Catheters [facility] Peripheral IV Urinary Cath still in place: No Assessment/Plan Assessment/Plan 1. Right lower extremity cellulitis, improving, on invanz and vanco 2. Acute renal insufficiency, improving, follow up with BMP/nephrology 3. Anion gap metabolic acidosis 07/22 #1 : resolved 4. Morbid obesity BMI 60 5. Dyslipidemia 6. DVP prophylaxis: heparin Subjective 24 Hr Interval Summary Free Text/Dictation afebrile Exam/Review of Systems Vital Signs Vitals Vital Signs Date Time Temp Pulse Resp B/P Pulse Ox O2 Delivery O2 Flow Rate FiO2 07/30/16 07:54 98.2 79 22 117/57 95 Intake and Output 07/29/16 07/29/16 07/30/16 15:00 23:00 07:00 Intake Total 1550 ml 1100 ml Output Total 3 ml Balance 1547 ml 1100 ml Exam Constitutional: alert, obese, oriented, well developed Psych: nl mood/affect, no complaints Head: atraumatic, normocephalic Eyes: EOMI, PERRL, nl conjunctiva, nl lids ENMT: nl external ears & nose, nl lips & teeth, nl nasal mucosa & septum Neck: non-tender, supple Respiratory: clear to auscultation, normal air movement, No congested cough, No crackles/rales, No diminished breath sounds, No intercostal retraction, No labored breathing, No other, No respirations, No tactile fremitus, No wheezing Cardiovascular: nl pulses, regular rate and rhythm, No S3, No S4, No bruits, No diastolic murmur, No edema, No gallop, No irregular rhythm, No jugular venous distention (JVD), No murmurs/extra sounds, No other, No rub, No systolic murmur Gastrointestinal: nl liver, spleen, non-tender, soft, No ascites, No bowel sounds, No distended, No firm, No hepatomegaly, No mass , No other, No rebound or guarding, No splenomegaly, No surgical scars, No tender Musculoskeletal: nl extremities to inspection Extremities: normal pulses, other (right lower extremity lesion, less redness and swelling) Neurological: MECHANIC GENERAL OPERATIONAL TEST II-XII intact, nl mental status, nl speech, nl strength Lymph: nl lymph nodes Results Result Diagram: 07/30/16 0530 07/30/16 0530 Results 24 hrs Laboratory Tests Test 07/30/16 05:30 Anion Gap 11 Basophils # 0.0 Basophils % 0.3 Blood Urea Nitrogen 17 Calcium Level 7.1 L Carbon Dioxide Level 24 Chloride Level 110 Creatinine 1.31 H Eosinophils # 0.2 Eosinophils % 1.6 Glucose Level 80 Hematocrit 30.7 #L Hemoglobin 9.6 #L Lymphocytes # 1.6 Lymphocytes % 14.0 L Magnesium Level 1.9 Mean Corpuscular Hemoglobin 28.9 L Mean Corpuscular Hemoglobin Concent 31.3 L Mean Corpuscular Volume 92.5 Mean Platelet Volume 10.3 Monocytes # 0.8 Monocytes % 7.1 Neutrophils # 8.6 H Neutrophils % 74.7 Nucleated Red Blood Cells # 0.0 Nucleated Red Blood Cells % 0.0 Phosphorus Level 3.0 Platelet Count 379 Potassium Level 3.7 Red Blood Count 3.32 #L Red Cell Distribution Width 15.5 H Sodium Level 141 White Blood Count 11.5 H Medications Medications Current Medications Ondansetron HCl (Zofran Inj) 4 mg Q6H PRN IV NAUSEA AND/OR VOMITING Last administered on 07/27/16 09:06; Admin Dose 4 MG; Start 07/23/16 at 17:00 Acetaminophen (Tylenol Tab) 650 mg Q6H PRN PO PAIN LEVEL 1-3 OR FEVER Last administered on 07/28/16 08:36; Admin Dose 650 MG; Start 07/23/16 at 17:00 Docusate Sodium (Colace) 100 mg Q12H PRN PO CONSTIPATION Last administered on 14:13; Admin Dose 100 MG; Start 07/23/16 at 17:00 Zolpidem Tartrate (Ambien) 5 mg QHS PRN PO SLEEP; Start 07/23/16 at 17:00 Heparin Sodium (Porcine) (Heparin (5000 Units/0.5 ml)) 5,000 unit Q12 SC Last administered on 07/30/16 09:06; Admin Dose 5,000 UNIT; Start 07/23/16 at 21:00 Fish Oil 1000 mg 1,000 mg BID PO Last administered on 07/30/16 09:00; Admin Dose 1,000 MG; Start 07/24/16 at 10:00 Sodium Chloride (NS) 1,000 ml @ 80 mls/hr [id number] IV Last administered on 07/30 02:17; Admin Dose 80 MLS/HR; Start 07/24/16 at 10:00 Morphine Sulfate (morphine) 4 mg Q4H PRN IV SEVERE PAIN LEVEL 7-10; Start at 13:00 Acetaminophen/ Hydrocodone Bitart ([place] (7.5-325)) 1 tab Q4H PRN PO PAIN LEVEL 4-6 Last administered on 07/30/16 12:20; Admin Dose 1 TAB; Start 07/24/16 at 11:00 Famotidine 20 mg 20 mg Q24H PO Last administered on 07/30/16 14:13; Admin Dose 20 MG; Start 07/24/16 at 14:00 Levofloxacin/ Dextrose (Levaquin 250 Mg/ D5W 50 ml (Pmx)) 50 ml @ 50 mls/hr Q24H IVPB Last administered on 07/29/16 21:34; Admin Dose 50 MLS/HR; Start 07/24 at 19:30 Nystatin 1 applic 1 applic BID TOP Last administered on 07/30/16 09:01; Admin Dose 1 APPLIC; Start 07/25/16 at 12:30; Stop 08/01/16 at 12:29 Ertapenem/Sodium Chloride (Invanz/NS) 100 ml @ 200 mls/hr Q24H IVPB Last administered on 07/29/16 16:28; Admin Dose 200 MLS/HR; Start 07/26/16 at 17:00 Silver Sulfadiazine (Thermazene 1% 25 Gm) 1 applic DAILY TOP Last administered on 07/30/16 09:01; Admin Dose 1 APPLIC; Start 07/26/16 at 17:00 Vitamin A/Vitamin D 1 applic 1 applic DAILY PRN TOP DRY MOUTH Last administered on 07/27/16 15:10; Admin Dose 1 APPLIC; Start 07/27/16 at 14:00 Vancomycin HCl/ Sodium Chloride (Vancocin/NS) 500 ml @ 125 mls/hr Q24H IVPB Last administered on 07/30/16 05:18; Admin Dose 125 MLS/HR; Start 07/29/16 at 05 :00 Miscellaneous Information (*Rx Drug Level Order Reminder*) VANCO TROUGH @ 0, 400 ON... ONCE ONCE XX ; Start 07/31/16 at 04:00; Stop 07/31/16 at 04:01 HARRY ROMERO MD Jul 30, 2016 15:07
[2016-07-30] MEDS: ERTAPENEM SODIUM 1 GM in SOD CHLORIDE 0.9% 100 ML IVPB SCH (17:18)
[2016-07-30] MEDS: LEVOFLOXACIN 250MG/D5W (PMX) 50 ML IVPB SCH (20:24)
[2016-07-30 21:26] VITALS: BP 143/75; RESP 18
[2016-07-31] MEDS: SOD CHLORIDE 0.9% 1,000 ML IV SCH ×3 (04:30→17:00)
[2016-07-31] MEDS: HYDROCODONE/APAP (7.5/325) TAB PO PRN ×2 (04:47→19:25)
[2016-07-31 06:03] LABS: POTASSIUM 3.8 mmol/L (3.5-5.1)
[2016-07-31 06:05] LABS: CREATININE 1.25 mg/dl (0.44-1.00)
[2016-07-31 06:06] LABS: CALCIUM 7.2 mg/dl (8.4-10.2); MAGNESIUM 1.8 mg/dl (1.7-2.5); PHOSPHORUS 3.3 mg/dl (2.5-4.9)
[2016-07-31] MEDS: VANCOMYCIN 2 GM in SOD CHLORIDE 0.9% 500 ML IVPB SCH (06:25)
[2016-07-31 07:53] VITALS: BP 136/72; RESP 22
[2016-07-31] MEDS: FISH OIL 1,000 MG CAP PO SCH ×2 (09:15→21:40)
[2016-07-31] MEDS: SILVER SULFADIAZINE 1% 25 GM CR TOP SCH (09:19)
[2016-07-31] MEDS: HEPARIN 5,000 UNIT/0.5 ML SYG SC SCH ×2 (09:19→21:48)
[2016-07-31] MEDS: NYSTATIN 30 GM POWDER BTL TOP SCH ×2 (09:20→21:40)
--- NOTE | 2016-07-31 10:36 | CONS ---
Date/Time of Note Date/Time of Note DATE: 07/31/16 TIME: 10:36 Assessment/Plan Assessment/Plan Chief Complaint/Hosp Course ID PROGRESS NOTE TOTAL ABX DAY # 24H INTERVAL SUMMARY * Feels well, had BM today, no diarrhea, no fevers, VSS * Right leg w/ severe weeping edema, micro (-), (-)MRSA, BCX (-) PHYSICAL EXAMINATION: GENERAL: VSS, NAD, Super morbid obese BMI >60 HEENT: Unremarkable NECK: Trach midline CHEST: Rise symmetrical - without dyspnea on observation HEART: RRR ABDOMEN: Soft, EXTREMITIES: Warm-> Severe RLEXT weeping edema/venous stasis + cellulitis ID ASSESSMENT: 31 yo super morbid obese F (BMI >6) admit with: 1. Systemic inflammatory response syndrome. 2. Right lower extremity cellulitis superimposed on severe RLEXT venous stasis edema 3. Diabetes. 4. Acute kidney injury. (-)MRSA Nares INVASIVES: *PIV ABX ALLERGIES: Amoxicillin CURRENT ABX: * 1. Vancomycin. * 2. Invanz. * 3. Levaquin ID RECOMMENDATIONS: Continue current ABX -- anticipate DC to wound care on PO ABX Clindamycin 300mg PO QID when cleared by PMD Is she a candidate for pressure wrapping wound to improve edema ? . Problems: Consultation Date/Type/Reason Admit Date/Time Jul 23, 2016 at 15:05 Initial Consult Date 07/24/16 Type of Consultation: ID Exam/Review of Systems Vital Signs Vitals Vital Signs Date Time Temp Pulse Resp B/P Pulse Ox O2 Delivery O2 Flow Rate FiO2 07/31/16 07:53 98.1 72 22 136/72 96 Intake and Output 07/30/16 07/30/16 07/31/16 15:00 23:00 07:00 Intake Total 400 ml 3570 ml 1500 ml Output Total 200 ml Balance 400 ml 3570 ml 1300 ml Results Result Diagram: 07/30/16 0530 07/31/16 0515 Results 24 hrs Laboratory Tests Test 07/31/16 05:15 Anion Gap 10 Blood Urea Nitrogen 16 Calcium Level 7.2 L Carbon Dioxide Level 21 Chloride Level 111 H Creatinine 1.25 H Glucose Level 94 Magnesium Level 1.8 Phosphorus Level 3.3 Potassium Level 3.8 Sodium Level 138 Vancomycin Level Trough 11.9 Medications Medications Current Medications Ondansetron HCl (Zofran Inj) 4 mg Q6H PRN IV NAUSEA AND/OR VOMITING Last administered on 07/27/16 09:06; Admin Dose 4 MG; Start 07/23/16 at 17:00 Acetaminophen (Tylenol Tab) 650 mg Q6H PRN PO PAIN LEVEL 1-3 OR FEVER Last administered on 07/28/16 08:36; Admin Dose 650 MG; Start 07/23/16 at 17:00 Docusate Sodium (Colace) 100 mg Q12H PRN PO CONSTIPATION Last administered on 14:13; Admin Dose 100 MG; Start 07/23/16 at 17:00 Zolpidem Tartrate (Ambien) 5 mg QHS PRN PO SLEEP; Start 07/23/16 at 17:00 Heparin Sodium (Porcine) (Heparin (5000 Units/0.5 ml)) 5,000 unit Q12 SC Last administered on 07/31/16 09:19; Admin Dose 5,000 UNIT; Start 07/23/16 at 21:00 Fish Oil 1000 mg 1,000 mg BID PO Last administered on 07/31/16 09:15; Admin Dose 1,000 MG; Start 07/24/16 at 10:00 Sodium Chloride (NS) 1,000 ml @ 80 mls/hr [id number] IV Last administered on 07/31 06:25; Admin Dose 80 MLS/HR; Start 07/24/16 at 10:00 Morphine Sulfate (morphine) 4 mg Q4H PRN IV SEVERE PAIN LEVEL 7-10; Start at 13:00 Acetaminophen/ Hydrocodone Bitart ([place] (7.5-325)) 1 tab Q4H PRN PO PAIN LEVEL 4-6 Last administered on 07/31/16 04:47; Admin Dose 1 TAB; Start 07/24/16 at 11:00 Famotidine 20 mg 20 mg Q24H PO Last administered on 07/30/16 14:13; Admin Dose 20 MG; Start 07/24/16 at 14:00 Levofloxacin/ Dextrose (Levaquin 250 Mg/ D5W 50 ml (Pmx)) 50 ml @ 50 mls/hr Q24H IVPB Last administered on 07/30/16 20:24; Admin Dose 50 MLS/HR; Start 07/24/16 at 19:30 Nystatin 1 applic 1 applic BID TOP Last administered on 07/31/16 09:20; Admin Dose 1 APPLIC; Start 07/25/16 at 12:30; Stop 08/01/16 at 12:29 Ertapenem/Sodium Chloride (Invanz/NS) 100 ml @ 200 mls/hr Q24H IVPB Last administered on 07/30/16 17:18; Admin Dose 200 MLS/HR; Start 07/26/16 at 17:00 Silver Sulfadiazine (Thermazene 1% 25 Gm) 1 applic DAILY TOP Last administered on 07/31/16 09:19; Admin Dose 1 APPLIC; Start 07/26/16 at 17:00 Vitamin A/Vitamin D 1 applic 1 applic DAILY PRN TOP DRY MOUTH Last administered on 07/27/16 15:10; Admin Dose 1 APPLIC; Start 07/27/16 at 14:00 Vancomycin HCl/ Sodium Chloride (Vancocin/NS) 500 ml @ 125 mls/hr Q24H IVPB Last administered on 07/31/16 06:25; Admin Dose 125 MLS/HR; Start 07/29/16 at 05 :00 Miscellaneous Information (*Rx Drug Level Order Reminder*) VANCO TROUGH @ 0, 400 ON... ONCE ONCE XX ; Start 07/31/16 at 04:00; Stop 07/31/16 at 04:01 JORDAN SMILEY NP Jul 31, 2016 10:36
--- NOTE | 2016-07-31 11:36 | PN ---
Date/Time of Note Date/Time of Note DATE: 07/31/16 TIME: 11:32 Assessment/Plan VTE Prophylaxis VTE Prophylaxis Intervention: LMWH Lines/Catheters IV C[facility] Type (from [facility] Peripheral IV Urinary Cath still in place: No Assessment/Plan Chief Complaint/Hosp Course Assessment/Plan 1. Right lower extremity cellulitis, improving, on invanz and vanco Follow-up podiatry and infectious disease doctor recommendations 2. Acute renal insufficiency, improving, follow up with BMP/nephrology 3. Anion gap metabolic acidosis / #1 : resolved 4. Morbid obesity BMI 60 5. Dyslipidemia, continue medical management 6. DVP prophylaxis: heparin We will continue monitor patient closely for recommendation management treatment as clinical course Disposition when cleared by podiatry Problems: Subjective 24 Hr Interval Summary Free Text/Dictation Patient complains of having muscle spasm in her right lower extremity The right lower extremity continues to drain No nausea vomiting diarrhea Tolerating oral intake Exam/Review of Systems Vital Signs Vitals Vital Signs Date Time Temp Pulse Resp B/P Pulse Ox O2 Delivery O2 Flow Rate FiO2 07/31/16 07:53 98.1 72 22 136/72 96 Intake and Output 07/30/16 07/30/16 07/31/16 15:00 23:00 07:00 Intake Total 400 ml 3570 ml 1500 ml Output Total 200 ml Balance 400 ml 3570 ml 1300 ml Exam General: The patient is morbidly obese, Not in acute distress. HEENT: Atraumatic, normocephalic. The pupils are equal and round . Neck: Supple with full range of motion. Chest: Normal expansion of the thorax during inspiration Lungs: Clear to auscultation bilaterally Heart: Normal S1-S2, Regular rhythm and rate. Abdomen: Soft , nontender, nondistended , bowel sounds are present. Extremities: Right foot erythema and swelling with evidence of fluid filled pockets without evidence of abscess/+1 edema no cyanosis Neurologic: Normal mental status,The patient is awake, alert and oriented . Results Result Diagram: 07/30/16 0530 07/31/16 0515 Results 24 hrs Laboratory Tests Test 07/31/16 05:15 Anion Gap 10 Blood Urea Nitrogen 16 Calcium Level 7.2 L Carbon Dioxide Level 21 Chloride Level 111 H Creatinine 1.25 H Glucose Level 94 Magnesium Level 1.8 Phosphorus Level 3.3 Potassium Level 3.8 Sodium Level 138 Vancomycin Level Trough 11.9 Medications Medications Current Medications Ondansetron HCl (Zofran Inj) 4 mg Q6H PRN IV NAUSEA AND/OR VOMITING Last administered on 07/27/16 09:06; Admin Dose 4 MG; Start 07/23/16 at 17:00 Acetaminophen (Tylenol Tab) 650 mg Q6H PRN PO PAIN LEVEL 1-3 OR FEVER Last administered on 07/28/16 08:36; Admin Dose 650 MG; Start 07/23/16 at 17:00 Docusate Sodium (Colace) 100 mg Q12H PRN PO CONSTIPATION Last administered on 14:13; Admin Dose 100 MG; Start 07/23/16 at 17:00 Zolpidem Tartrate (Ambien) 5 mg QHS PRN PO SLEEP; Start 07/23/16 at 17:00 Heparin Sodium (Porcine) (Heparin (5000 Units/0.5 ml)) 5,000 unit Q12 SC Last administered on 07/31/16 09:19; Admin Dose 5,000 UNIT; Start 07/23/16 at 21:00 Fish Oil 1000 mg 1,000 mg BID PO Last administered on 07/31/16 09:15; Admin Dose 1,000 MG; Start 07/24/16 at 10:00 Sodium Chloride (NS) 1,000 ml @ 80 mls/hr [id number] IV Last administered on 07/31 06:25; Admin Dose 80 MLS/HR; Start 07/24/16 at 10:00 Morphine Sulfate (morphine) 4 mg Q4H PRN IV SEVERE PAIN LEVEL 7-10; Start at 13:00 Acetaminophen/ Hydrocodone Bitart ([place] (7.5-325)) 1 tab Q4H PRN PO PAIN LEVEL 4-6 Last administered on 07/31/16 04:47; Admin Dose 1 TAB; Start 07/24/16 at 11:00 Famotidine 20 mg 20 mg Q24H PO Last administered on 07/30/16 14:13; Admin Dose 20 MG; Start 07/24/16 at 14:00 Levofloxacin/ Dextrose (Levaquin 250 Mg/ D5W 50 ml (Pmx)) 50 ml @ 50 mls/hr Q24H IVPB Last administered on 07/30/16 20:24; Admin Dose 50 MLS/HR; Start 07/24/16 at 19:30 Nystatin 1 applic 1 applic BID TOP Last administered on 07/31/16 09:20; Admin Dose 1 APPLIC; Start 07/25/16 at 12:30; Stop 08/01/16 at 12:29 Ertapenem/Sodium Chloride (Invanz/NS) 100 ml @ 200 mls/hr Q24H IVPB Last administered on 07/30/16 17:18; Admin Dose 200 MLS/HR; Start 07/26/16 at 17:00 Silver Sulfadiazine (Thermazene 1% 25 Gm) 1 applic DAILY TOP Last administered on 07/31/16 09:19; Admin Dose 1 APPLIC; Start 07/26/16 at 17:00 Vitamin A/Vitamin D 1 applic 1 applic DAILY PRN TOP DRY MOUTH Last administered on 07/27/16 15:10; Admin Dose 1 APPLIC; Start 07/27/16 at 14:00 Vancomycin HCl/ Sodium Chloride (Vancocin/NS) 500 ml @ 125 mls/hr Q24H IVPB Last administered on 07/31/16 06:25; Admin Dose 125 MLS/HR; Start 07/29/16 at 05 :00 Miscellaneous Information (*Rx Drug Level Order Reminder*) VANCO TROUGH @ 0, 400 ON... ONCE ONCE XX ; Start 07/31/16 at 04:00; Stop 07/31/16 at 04:01 GERRY TODD MD Jul 31, 2016 11:36
--- NOTE | 2016-07-31 11:43 | PN ---
DATE: 07/31/2016 SUBJECTIVE: The patient is clinically improving. No acute events overnight. No hemoptysis, hemate mesis or hematochezia. The patient continues to have pain in right lower extremity. OBJECTIVE: VITAL SIGNS: Blood pressure is 136/72, respirations 22, pulse 72, temperature 98.1. HEENT: Head is normocephalic. NECK: Supple. HEART: Regular rate. LUNGS: Show diminished breath sounds at base. ABDOMEN: Soft, nontender to palpation without rebound or guarding. EXTREMITIES: Negative for clubbing, cyanosis, edema on the left leg. Right lower extremity has kiko lulitis with blisters. NEUROLOGIC: No focal deficits. MUSCULOSKELETAL: No joint effusions. LABORATORY DATA: Shows sodium 138, potassium 3.9, chloride 111, BUN 16, creatinine 1.25. White cou nt 11.5, hemoglobin 9.6, ____, platelet count 379. ASSESSMENT AND PLAN: 1. Nonoliguric acute kidney injury with unknown baseline creatinine. Etiology secondary to acute t ubular necrosis and septic acute kidney injury. Renal function is slowly improving. Continue curre nt treatment plan, supportive care, renally dose medications. 2. Anemia. Continue to monitor hemoglobin and hematocrit levels. 3. Mineral bone disorder. Continue to monitor calcium and phosphorus levels. 4. Lower extremity cellulitis. Continue current antibiotic regimen. Follow up with infectious dis ease. 5. Morbid obesity. Continue dietary modification. Dictated By: KIMBERLY MERCADO/HANNY Conf#: [id number] DID#: [id number]
[2016-07-31] MEDS ORDERED: morphine 4 MG/ML VIAL IV STA (12:25)
[2016-07-31] MEDS: morphine 4 MG/ML VIAL IV PRN ×2 (12:25→23:05)
[2016-07-31] MEDS: CYCLOBENZAPRINE 10 MG TAB PO SCH ×2 (12:47→21:40)
--- NOTE | 2016-07-31 14:16 | OPR ---
DATE OF OPERATION: 07/31/2016 SURGEON: Sofía Rae DPM [employer] C[employer]TER: None. PREOPERATIVE DIAGNOSES: 1. Right lower extremity cellulitis. 2. Multiple bullae, right foot and ankle, with evidence of skin necrosis. 3. Obesity. 4. Leukocytosis. POSTOPERATIVE DIAGNOSES: 1. Right lower extremity cellulitis. 2. Multiple bullae right foot and ankle, with evidence of skin necrosis. 3. Obesity. 4. Leukocytosis. OPERATION: Incision and drainage, with aspiration of hematoma, right foot and ankle. PATHOLOGY: 40 mL of sanguineous exudate. ANESTHESIA: None. ESTIMATED BLOOD LOSS: Amount drained, about 40 mL. COMPLICATIONS: None. INDICATION FOR PROCEDURE: This is a 31-year-old female with severe edema, blister formation, has ar eas with skin necrosis to the right foot and ankle. The patient has intact sensation. She is able to flex and extend the toes. She has decreased edema of the proximal lower leg, with persistent solange ma of the foot and ankle. Recommended a procedure to obtain a culture, as well as to provide draina ge. Informed consent was obtained. DESCRIPTION OF PROCEDURE: The patient was seen at bedside. Extremities cleansed with antiseptic christie ution. Multiple percutaneous aspirations of the right dorsal foot and medial ankle, and approximate ly 40 mL of sanguineous exudate drained. Specimen obtained for culture. The area was drained. The subcutaneous tissue was soft and supple. The patient's DP and PT pulses are palpable. POSTOPERATIVE PLAN: Sanguineous exudate sent for culture. Will follow up on the results. May requi re repeat aspiration or formal incision and drainage if further edema or skin necrosis. Continue to monitor. Continue current antibiotics. Dictated By: SOFÍA DONNELLY/HANNY Conf#: [id number] DID#: [id number]
[2016-07-31] MEDS: FAMOTIDINE 20 MG TAB PO SCH (14:45)
[2016-07-31] MEDS: ERTAPENEM SODIUM 1 GM in SOD CHLORIDE 0.9% 100 ML IVPB SCH (17:42)
[2016-07-31] MEDS: LEVOFLOXACIN 250MG/D5W (PMX) 50 ML IVPB SCH (19:38)
[2016-07-31 20:08] VITALS: BP 175/91; RESP 20
[2016-07-31 20:12] VITALS: BP 135/67; PULSE 77
[2016-07-31 21:38] VITALS: BP 133/65; PULSE 72; RESP 18
[2016-07-31] MEDS: LORAZEPAM 2 MG INJ IV PRN (22:22)
[2016-08-01] MEDS: SOD CHLORIDE 0.9% 1,000 ML IV SCH ×3 (01:58→17:13)
[2016-08-01] MEDS: VANCOMYCIN 2 GM in SOD CHLORIDE 0.9% 500 ML IVPB SCH (05:01)
[2016-08-01] MEDS: HYDROCODONE/APAP (7.5/325) TAB PO PRN ×3 (05:16→22:55)
[2016-08-01 06:43] LABS: BASOPHILS % 0.3 % (0.0-2.0); EOSINOPHILS # 0.2 10^3/ul (0.0-0.5); EOSINOPHILS % 2.1 % (0.0-7.0); HEMATOCRIT 29.3 % (37.0-47.0); HEMOGLOBIN 9.8 g/dl (12.0-16.0); LYMPHOCYTES # 1.3 10^3/ul (0.8-2.9); LYMPHOCYTES % 15.8 % (15.0-51.0); MEAN CORPUSCULAR HEMOGLOBIN 29.5 pg (29.0-33.0); MEAN CORPUSCULAR HGB CONC 33.5 g/dl (32.0-37.0); MEAN CORPUSCULAR VOLUME 88.2 fl (82.0-101.0); MEAN PLATELET VOLUME 8.3 fl (7.4-10.4); MONOCYTE # 0.6 10^3/ul (0.3-0.9); MONOCYTES % 6.9 % (0.0-11.0); NEUTROPHIL # 6.4 10^3/ul (1.6-7.5); NEUTROPHILS % 74.9 % (39.0-77.0); PLATELET COUNT 373 10^3/UL (140-440); RED BLOOD COUNT 3.32 10^6/ul (4.20-5.40); RED CELL DISTRIBUTION WIDTH 15.7 % (11.5-14.5); UNCORRECTED WBC 8.5 10^3/ul (4.8-10.8); WHITE BLOOD COUNT 8.5 10^3/ul (4.8-10.8)
[2016-08-01 06:51] LABS: CONDITION 1; LH ANALYZER COMMENTS 1
[2016-08-01 07:01] LABS: POTASSIUM 3.7 mmol/L (3.5-5.1)
[2016-08-01 07:05] LABS: CALCIUM 7.5 mg/dl (8.4-10.2); CREATININE 1.16 mg/dl (0.44-1.00)
[2016-08-01 07:43] VITALS: BP 145/70; RESP 24
[2016-08-01] MEDS: SILVER SULFADIAZINE 1% 25 GM CR TOP SCH (09:00)
[2016-08-01] MEDS: FISH OIL 1,000 MG CAP PO SCH ×2 (09:16→21:06)
[2016-08-01] MEDS: CYCLOBENZAPRINE 10 MG TAB PO SCH ×3 (09:16→21:06)
[2016-08-01] MEDS: NYSTATIN 30 GM POWDER BTL TOP SCH (09:18)
[2016-08-01] MEDS: HEPARIN 5,000 UNIT/0.5 ML SYG SC SCH ×2 (09:26→21:26)
--- NOTE | 2016-08-01 12:01 | PN ---
Date/Time of Note Date/Time of Note DATE: 08/01/16 TIME: 11:59 Assessment/Plan VTE Prophylaxis VTE Prophylaxis Intervention: other Lines/Catheters IV [facility]ter Type (from [facility] Peripheral IV Urinary Cath still in place: No Assessment/Plan Chief Complaint/Hosp Course Assessment/Plan 1. Right lower extremity cellulitis, improving, on invanz and vanco Follow-up podiatry and infectious disease doctor recommendations Status post Multiple percutaneous aspirations of the right dorsal foot and medial ankle, drainage of sanguineous exudate by podiatry. Follow-up culture and sensitivity 2. Acute renal insufficiency, improving, follow up with BMP/nephrology 3. Anion gap metabolic acidosis 07/22 #1 : resolved 4. Morbid obesity BMI 60 5. Dyslipidemia, continue medical management 6. DVP prophylaxis: heparin We will continue monitor patient closely for recommendation management treatment as clinical course Disposition when cleared by podiatry Problems: Subjective 24 Hr Interval Summary Free Text/Dictation Patient denies any chest pain or shortness of breath Tolerating oral intake Complains of having minimal right foot pain and drainage Exam/Review of Systems Vital Signs Vitals Vital Signs Date Time Temp Pulse Resp B/P Pulse Ox O2 Delivery O2 Flow Rate FiO2 08/01/16 07:43 97.8 66 24 145/70 96 07/31/16 21:38 Room Air Intake and Output 07/31/16 07/31/16 08/01/16 15:00 23:00 07:00 Intake Total 125 ml 1915 ml 930 ml Output Total 1000 ml Balance 125 ml 915 ml 930 ml Exam General: The patient is morbidly obese with BMI of 60 , Not in acute distress. HEENT: Atraumatic, normocephalic. The pupils are equal and round . Neck: Supple with full range of motion. Chest: Normal expansion of the thorax during inspiration Lungs: Clear to auscultation bilaterally Heart: Normal S1-S2, Regular rhythm and rate. Abdomen: Soft , nontender, nondistended , bowel sounds are present. Extremities: Right foot erythema/cellulitis, nonpitting edema no cyanosis Neurologic: Normal mental status,The patient is awake, alert and oriented . Results Result Diagram: 08/01/16 0450 08/01/16 0450 Results 24 hrs Laboratory Tests Test 08/01/16 04:50 Anion Gap 13 Basophils # 0.0 Basophils % 0.3 Blood Morphology Comment Blood Urea Nitrogen 15 Calcium Level 7.5 L Carbon Dioxide Level 21 Chloride Level 109 Creatinine 1.16 H Eosinophils # 0.2 Eosinophils % 2.1 Glucose Level 78 Hematocrit 29.3 L Hemoglobin 9.8 L Lymphocytes # 1.3 Lymphocytes % 15.8 Mean Corpuscular Hemoglobin 29.5 Mean Corpuscular Hemoglobin Concent 33.5 Mean Corpuscular Volume 88.2 Mean Platelet Volume 8.3 Monocytes # 0.6 Monocytes % 6.9 Neutrophils # 6.4 Neutrophils % 74.9 Nucleated Red Blood Cells # 0.0 Nucleated Red Blood Cells % 0.0 Platelet Count 373 # Potassium Level 3.7 Red Blood Count 3.32 L Red Cell Distribution Width 15.7 H Sodium Level 139 White Blood Count 8.5 # Medications Medications Current Medications Ondansetron HCl (Zofran Inj) 4 mg Q6H PRN IV NAUSEA AND/OR VOMITING Last administered on 07/27/16 09:06; Admin Dose 4 MG; Start 07/23/16 at 17:00 Acetaminophen (Tylenol Tab) 650 mg Q6H PRN PO PAIN LEVEL 1-3 OR FEVER Last administered on 07/28/16 08:36; Admin Dose 650 MG; Start 07/23/16 at 17:00 Docusate Sodium (Colace) 100 mg Q12H PRN PO CONSTIPATION Last administered on 14:13; Admin Dose 100 MG; Start 07/23/16 at 17:00 Zolpidem Tartrate (Ambien) 5 mg QHS PRN PO SLEEP; Start 07/23/16 at 17:00 Heparin Sodium (Porcine) (Heparin (5000 Units/0.5 ml)) 5,000 unit Q12 SC Last administered on 08/01/16 09:26; Admin Dose 5,000 UNIT; Start 07/23/16 at 21:00 Fish Oil 1000 mg 1,000 mg BID PO Last administered on 08/01/16 09:16; Admin Dose 1,000 MG; Start 07/24/16 at 10:00 Sodium Chloride (NS) 1,000 ml @ 40 mls/hr Q24H IV Last administered on 01:58; Admin Dose 80 MLS/HR; Start 07/24/16 at 10:00 Morphine Sulfate (morphine) 4 mg Q4H PRN IV SEVERE PAIN LEVEL 7-10 Last administered on 07/31/16 23:05; Admin Dose 4 MG; Start 07/24/16 at 13:00 Acetaminophen/ Hydrocodone Bitart ([place] (7.5-325)) 1 tab Q4H PRN PO PAIN LEVEL 4-6 Last administered on 08/01/16 05:16; Admin Dose 1 TAB; Start 07/24/16 at 11:00 Famotidine 20 mg 20 mg Q24H PO Last administered on 07/31/16 14:45; Admin Dose 20 MG; Start 07/24/16 at 14:00 Levofloxacin/ Dextrose (Levaquin 250 Mg/ D5W 50 ml (Pmx)) 50 ml @ 50 mls/hr Q24H IVPB Last administered on 07/31/16 19:38; Admin Dose 50 MLS/HR; Start 07/24/16 at 19:30 Nystatin 1 applic 1 applic BID TOP Last administered on 08/01/16 09:18; Admin Dose 1 APPLIC; Start 07/25/16 at 12:30; Stop 08/01/16 at 12:29 Ertapenem/Sodium Chloride (Invanz/NS) 100 ml @ 200 mls/hr Q24H IVPB Last administered on 07/31/16 17:42; Admin Dose 200 MLS/HR; Start 07/26/16 at 17:00 Silver Sulfadiazine (Thermazene 1% 25 Gm) 1 applic DAILY TOP Last administered on 08/01/16 09:00; Admin Dose 1 APPLIC; Start 07/26/16 at 17:00 Vitamin A/Vitamin D 1 applic 1 applic DAILY PRN TOP DRY MOUTH Last administered on 07/27/16 15:10; Admin Dose 1 APPLIC; Start 07/27/16 at 14:00 Vancomycin HCl/ Sodium Chloride (Vancocin/NS) 500 ml @ 125 mls/hr Q24H IVPB Last administered on 08/01/16 05:01; Admin Dose 125 MLS/HR; Start 07/29/16 at 05 :00 Miscellaneous Information (*Rx Drug Level Order Reminder*) VANCO TROUGH @ 0, 400 ON... ONCE ONCE XX ; Start 07/31/16 at 04:00; Stop 07/31/16 at 04:01 Cyclobenzaprine HCl (Flexeril) 10 mg TID PO Last administered on 08/01/16 09: 16; Admin Dose 10 MG; Start 07/31/16 at 13:00; Stop 08/03/16 at 12:00 Lorazepam (Ativan) 1 mg Q4 PRN IV ANXIETY Last administered on 07/31/16 22:22 ; Admin Dose 1 MG; Start 07/31/16 at 22:00 GERRY TODD MD Aug 01, 2016 12:01
[2016-08-01] MEDS: ONDANSETRON 4 MG INJ IV PRN (13:23)
[2016-08-01] MEDS: FAMOTIDINE 20 MG TAB PO SCH (13:23)
[2016-08-01] MEDS: LORAZEPAM 2 MG INJ IV PRN (13:27)
[2016-08-01] MEDS: ERTAPENEM SODIUM 1 GM in SOD CHLORIDE 0.9% 100 ML IVPB SCH (17:06)
--- NOTE | 2016-08-01 19:48 | CONS ---
DATE OF ADMISSION: 07/23/2016 DATE OF CONSULTATION: SUBJECTIVE FINDINGS: The patient being followed for right lower extremity cellulitis with multiple bullae skin necrosis status post multiple percutaneous aspirations of sanguineous exudate. Cultures are preliminary and no growth. The patient relates tightness with current wrappings, relates decreased pain with active range of motion of the toes and ankle since aspiration. OBJECTIVE FINDINGS: VITAL SIGNS: Temperature 97.8, pulse is 66, respiratory rate 24, blood pressure 145/70. EXTREMITIES: Finding is decreased edema. Puncture sites appear healed. There is a dry eschar on the dorsal aspect of the foot, multiple small blisters with serous exudate. The patient has a 2+ DP pulse. No pain with passive range of motion of toes. Sensation to the tibial nerve, superficial peroneal, deep peroneal and sural nerve distribution. Decreased edema. LABORATORIES: WBC 8.5, hemoglobin 9.8, hematocrit 29.3, ASSESSMENT: 1. Right lower extremity edema. 2. Right lower extremity cellulitis. 3. Multiple bullae. 4. Systemic inflammatory response syndrome. 5. Acute kidney injury. PLAN: The patient seen and evaluated. The patient currently on vancomycin, Invanz, Levaquin. The patient will need continued antibiotics. Continue b.i.d. dressing changes, can apply light compression as the patient tolerates. Consider SNF placement or to home with home health. Dictated By: SOFÍA DONNELLY/HANNY Conf#: [id number] DID#: [id number] MTDD
[2016-08-01] MEDS: LEVOFLOXACIN 500MG/D5W (PMX) 100 ML IVPB SCH (19:55)
[2016-08-01] MEDS: morphine 4 MG/ML VIAL IV PRN (20:00)
[2016-08-01 20:26] VITALS: BP 153/68; RESP 16
[2016-08-02 05:02] LABS: BASOPHILS % 0.4 % (0.0-2.0); EOSINOPHILS # 0.2 10^3/ul (0.0-0.5); EOSINOPHILS % 2.5 % (0.0-7.0); HEMATOCRIT 29.9 % (37.0-47.0); LYMPHOCYTES # 1.6 10^3/ul (0.8-2.9); LYMPHOCYTES % 23.9 % (15.0-51.0); MEAN CORPUSCULAR HEMOGLOBIN 29.4 pg (29.0-33.0); MEAN CORPUSCULAR HGB CONC 33.3 g/dl (32.0-37.0); MEAN CORPUSCULAR VOLUME 88.3 fl (82.0-101.0); MEAN PLATELET VOLUME 7.8 fl (7.4-10.4); MONOCYTE # 0.6 10^3/ul (0.3-0.9); MONOCYTES % 8.8 % (0.0-11.0); NEUTROPHIL # 4.3 10^3/ul (1.6-7.5); NEUTROPHILS % 64.4 % (39.0-77.0); PLATELET COUNT 432 10^3/UL (140-440); RED BLOOD COUNT 3.39 10^6/ul (4.20-5.40); RED CELL DISTRIBUTION WIDTH 15.2 % (11.5-14.5); UNCORRECTED WBC 6.6 10^3/ul (4.8-10.8); WHITE BLOOD COUNT 6.6 10^3/ul (4.8-10.8)
[2016-08-02 05:18] LABS: POTASSIUM 3.8 mmol/L (3.5-5.1)
[2016-08-02 05:20] LABS: CREATININE 1.32 mg/dl (0.44-1.00)
[2016-08-02 05:21] LABS: CALCIUM 7.3 mg/dl (8.4-10.2); MAGNESIUM 1.8 mg/dl (1.7-2.5); PHOSPHORUS 4.1 mg/dl (2.5-4.9)
[2016-08-02] MEDS: VANCOMYCIN 2 GM in SOD CHLORIDE 0.9% 500 ML IVPB SCH (05:24)
[2016-08-02 05:29] LABS: CONDITION 1; LH ANALYZER COMMENTS 1
[2016-08-02] MEDS: morphine 4 MG/ML VIAL IV PRN ×2 (06:06→22:47)
--- NOTE | 2016-08-02 06:58 | PN ---
DATE: 08/01/2016 SUBJECTIVE: The patient is stable, no acute events overnight. No hemoptysis, hematemesis or hemato chezia. OBJECTIVE: VITAL SIGNS: Blood pressure 145/70, respiration 24, pulse 66, temperature 97.8. HEENT: Head is normocephalic. NECK: Supple. HEART: Regular rate. LUNGS: Show diminished breath sounds at the base. ABDOMEN: Soft, nontender to palpation. No rebound or guarding. EXTREMITIES: Negative for clubbing, cyanosis. No edema on the left leg. Right lower extremity cont inues to have erythema and dressings clean, dry and intact. DERMATOLOGIC: No rashes. MUSCULOSKELETAL EXAMINATION: No joint effusions. NEUROLOGIC: No change in exam. MEDICATIONS: Reviewed. LABORATORY DATA: Shows sodium 139, potassium 3.7, chloride 109, BUN 15, creatinine 1.16. White cou nt 8.5, hemoglobin 9.8, hematocrit 29.3, platelet count 373. ASSESSMENT AND PLAN: 1. Nonoliguric acute kidney injury with unknown baseline creatinine. Etiology of acute kidney inju ry is secondary to acute tubular necrosis, septic acute kidney injury. The patient's renal functio n has been improving. Continue current treatment plan, supportive care, renally dose all meds, avoi d nephrotoxins. 2. Anemia. Continue to monitor hemoglobin and hematocrit levels. 3. Mineral bone disorder. Continue to monitor calcium and phosphorus levels. 4. Lower extremity cellulitis with blisters. Continue current antibiotic regimen. 5. Morbid obesity. Continue dietary modification. Dictated By: KIMBERLY MERCADO/HANNY Conf#: [id number] DID#: [id number]
[2016-08-02 08:05] VITALS: BP 141/80; RESP 16
[2016-08-02] MEDS: CYCLOBENZAPRINE 10 MG TAB PO SCH ×3 (08:24→20:09)
[2016-08-02] MEDS: FISH OIL 1,000 MG CAP PO SCH ×2 (08:24→20:10)
[2016-08-02] MEDS: HYDROCODONE/APAP (7.5/325) TAB PO PRN ×2 (08:24→17:03)
[2016-08-02] MEDS: SILVER SULFADIAZINE 1% 25 GM CR TOP SCH (08:25)
[2016-08-02] MEDS: HEPARIN 5,000 UNIT/0.5 ML SYG SC SCH ×2 (08:33→20:18)
--- NOTE | 2016-08-02 11:25 | PN ---
Date/Time of Note Date/Time of Note DATE: 08/02/16 TIME: 11:23 Assessment/Plan VTE Prophylaxis VTE Prophylaxis Intervention: other Lines/Catheters IV [facility] ([facility] Peripheral IV Urinary Cath still in place: No Assessment/Plan Chief Complaint/Hosp Course Assessment/Plan 1. Right lower extremity cellulitis, improving, on invanz and vanco Follow-up podiatry and infectious disease doctor recommendations Status post Multiple percutaneous aspirations of the right dorsal foot and medial ankle, drainage of sanguineous exudate by podiatry. Follow-up culture and sensitivity 2. Acute renal insufficiency, improving, follow up with BMP/nephrology 3. Anion gap metabolic acidosis 07/22 #1 : resolved 4. Morbid obesity BMI 60 5. Dyslipidemia, continue medical management 6. DVP prophylaxis: heparin We will continue monitor patient closely for recommendation management treatment as clinical course Disposition when cleared by podiatry Problems: Subjective 24 Hr Interval Summary Free Text/Dictation Patient continues to complain of having discomfort in the right lower extremity Max assist with ambulation 10 feet Tolerating oral intake Exam/Review of Systems Vital Signs Vitals Vital Signs Date Time Temp Pulse Resp B/P Pulse Ox O2 Delivery O2 Flow Rate FiO2 08/02/16 08:05 97.4 62 16 141/80 98 07/31/16 21:38 Room Air Intake and Output 08/01/16 08/01/16 08/02/16 15:00 23:00 07:00 Intake Total 2080 ml 960 ml Output Total 2200 ml 1000 ml Balance -120 ml -40 ml Exam General: The patient is morbidly obese, Not in acute distress. HEENT: Atraumatic, normocephalic. The pupils are equal and round . Neck: Supple with full range of motion. Chest: Normal expansion of the thorax during inspiration Lungs: Clear to auscultation bilaterally Heart: Normal S1-S2, Regular rhythm and rate. Abdomen: Soft , nontender, nondistended , bowel sounds are present. Extremities: Right leg and foot erythema and edema/wrap in Farzad bandage, nonpitting edema left leg no cyanosis Neurologic: Normal mental status,The patient is awake, alert and oriented . Results Result Diagram: 08/02/16 0435 08/02/16 0435 Results 24 hrs Laboratory Tests Test 08/02/16 04:35 Anion Gap 9 Basophils # 0.0 Basophils % 0.4 Blood Morphology Comment Blood Urea Nitrogen 16 Calcium Level 7.3 L Carbon Dioxide Level 25 Chloride Level 110 Creatinine 1.32 H Eosinophils # 0.2 Eosinophils % 2.5 Glucose Level 91 Hematocrit 29.9 L Hemoglobin 10.0 L Lymphocytes # 1.6 Lymphocytes % 23.9 Magnesium Level 1.8 Mean Corpuscular Hemoglobin 29.4 Mean Corpuscular Hemoglobin Concent 33.3 Mean Corpuscular Volume 88.3 Mean Platelet Volume 7.8 Monocytes # 0.6 Monocytes % 8.8 Neutrophils # 4.3 Neutrophils % 64.4 Nucleated Red Blood Cells # 0.0 Nucleated Red Blood Cells % 0.0 Phosphorus Level 4.1 Platelet Count 432 Potassium Level 3.8 Red Blood Count 3.39 L Red Cell Distribution Width 15.2 H Sodium Level 140 White Blood Count 6.6 # Medications Medications Current Medications Ondansetron HCl (Zofran Inj) 4 mg Q6H PRN IV NAUSEA AND/OR VOMITING Last administered on 07/27/16 09:06; Admin Dose 4 MG; Start 07/23/16 at 17:00 Acetaminophen (Tylenol Tab) 650 mg Q6H PRN PO PAIN LEVEL 1-3 OR FEVER Last administered on 07/28/16 08:36; Admin Dose 650 MG; Start 07/23/16 at 17:00 Docusate Sodium (Colace) 100 mg Q12H PRN PO CONSTIPATION Last administered on 14:13; Admin Dose 100 MG; Start 07/23/16 at 17:00 Zolpidem Tartrate (Ambien) 5 mg QHS PRN PO SLEEP; Start 07/23/16 at 17:00 Heparin Sodium (Porcine) (Heparin (5000 Units/0.5 ml)) 5,000 unit Q12 SC Last administered on 08/02/16 08:33; Admin Dose 5,000 UNIT; Start 07/23/16 at 21:00 Fish Oil 1000 mg 1,000 mg BID PO Last administered on 08/02/16 08:24; Admin Dose 1,000 MG; Start 07/24/16 at 10:00 Sodium Chloride (NS) 1,000 ml @ 40 mls/hr Q24H IV Last administered on 17:13; Admin Dose 40 MLS/HR; Start 07/24/16 at 10:00 Morphine Sulfate (morphine) 4 mg Q4H PRN IV SEVERE PAIN LEVEL 7-10 Last administered on 08/02/16 06:06; Admin Dose 4 MG; Start 07/24/16 at 13:00 Acetaminophen/ Hydrocodone Bitart ([place] (7.5-325)) 1 tab Q4H PRN PO PAIN LEVEL 4-6 Last administered on 08/02/16 08:24; Admin Dose 1 TAB; Start 07/24/16 at 11:00 Famotidine 20 mg 20 mg Q24H PO Last administered on 08/01/16 13:23; Admin Dose 20 MG; Start 07/24/16 at 14:00 Ertapenem/Sodium Chloride (Invanz/NS) 100 ml @ 200 mls/hr Q24H IVPB Last administered on 08/01/16 17:06; Admin Dose 200 MLS/HR; Start 07/26/16 at 17:00 Silver Sulfadiazine (Thermazene 1% 25 Gm) 1 applic DAILY TOP Last administered on 08/02/16 08:25; Admin Dose 1 APPLIC; Start 07/26/16 at 17:00 Vitamin A/Vitamin D 1 applic 1 applic DAILY PRN TOP DRY MOUTH Last administered on 07/27/16 15:10; Admin Dose 1 APPLIC; Start 07/27/16 at 14:00 Vancomycin HCl/ Sodium Chloride (Vancocin/NS) 500 ml @ 125 mls/hr Q24H IVPB Last administered on 08/02/16 05:24; Admin Dose 125 MLS/HR; Start 07/29/16 at 05 :00 Cyclobenzaprine HCl (Flexeril) 10 mg TID PO Last administered on 08/02/16 08: 24; Admin Dose 10 MG; Start 07/31/16 at 13:00; Stop 08/03/16 at 12:00 Lorazepam 1 mg 1 mg Q4 PRN IV ANXIETY Last administered on 08/01/16 13:27; Admin Dose 1 MG; Start 07/31/16 at 22:00 Levofloxacin/ Dextrose (Levaquin 500mg/ D5W 100 ml (Pmx)) 100 ml @ 100 mls/hr Q24H IVPB Last administered on 08/01/16 19:55; Admin Dose 100 MLS/HR; Start at 19:30 GERRY TODD MD Aug 02, 2016 11:25
--- NOTE | 2016-08-02 11:36 | CONS ---
DATE OF ADMISSION: 07/23/2016 DATE OF CONSULTATION: 08/02/2016 SUBJECTIVE FINDINGS: The patient is being followed closely for right lower extremity cellulitis with multiple bullae with skin necrosis status post percutaneous aspiration. Cultures preliminary no organisms. MRSA of nares is negative. Blood cultures no growth. Patient relates a decrease in swelling and pain. Denies any fever, nausea, vomiting, chills. OBJECTIVE FINDINGS: VITAL SIGNS: Temperature 97.4, pulse 62, respiratory rate 16, blood pressure 141/80, pulse ox is 98% with room air. EXTREMITIES: Decreased edema, right foot and ankle. There is a patch of skin necrosis to the dorsal aspect of the foot that appears to be drying. No pain with passive and active range of motion of toes. Has a 2+ DP pulse. Sensation is intact to the tibial nerve, deep peroneal nerve, superficial peroneal nerve and sural nerve distribution. Compartments of the foot and leg are soft and supple. LABORATORIES: WBC 6.6, hemoglobin 10, hematocrit 29.9, platelets 438,000. X-rays of the right ankle: Soft tissue edema, no osseous abnormality. Foot x-ray: No evidence of foreign body or subcutaneous gas. No fracture or dislocation. ASSESSMENT: 1. Right lower extremity edema. 2. Right lower extremity bullae. 3. Systemic inflammatory response. 4. Acute kidney injury. PLAN: The patient with significant improvement. No further aspiration or surgery scheduled. The patient currently on vancomycin, Invanz and Levaquin. We will need to continue antibiotics. Compression therapy initiated. Continue antibiotics at discharge. Consider home health versus SNF placement. Dictated By: SOFÍA DONNELLY/HANNY Conf#: [id number] DID#: [id number] MTDD
--- NOTE | 2016-08-02 11:44 | CONS ---
Date/Time of Note Date/Time of Note DATE: 08/02/16 TIME: 11:43 Assessment/Plan Assessment/Plan Chief Complaint/Hosp Course SUBJECTIVE: No acute changes. The patient is alert, lying comfortably in bed, no fevers ANTIMICROBIALS: IV vancomycin Levaquin, Invanz. OBJECTIVE: GENERAL: This is a morbidly obese, well-developed, middle-aged white woman who is lying comfortably in bed. HEENT: Head atraumatic, normocephalic. Sclerae anicteric. Buccal mucosa pink. NECK: Obese. CHEST: Rise symmetrical. Breath sounds clear. HEART: S1, S2. ABDOMEN: Soft, bowel tones present. EXTREMITIES: With right lower extremity edema, erythema and blistering, erythema descending. ASSESSMENT: 1. Right lower extremity cellulitis with blisters. 2. Morbid obesity. 3. Systemic inflammatory response syndrome with low grade fevers and leukocytosis. 4. Acute kidney injury, possible chronic kidney disease. 5. SIRS 2 to #1 PLAN: Clinically stable, RLE erythema improving, continue abx, RLE elevation, f /u Dr Rae's recommendations [facility] staff Problems: Consultation Date/Type/Reason Admit Date/Time Jul 23, 2016 at 15:05 Initial Consult Date 07/24/16 Type of Consultation: ID Exam/Review of Systems Vital Signs Vitals Vital Signs Date Time Temp Pulse Resp B/P Pulse Ox O2 Delivery O2 Flow Rate FiO2 08/02/16 08:05 97.4 62 16 141/80 98 07/31/16 21:38 Room Air Intake and Output 08/01/16 08/01/16 08/02/16 15:00 23:00 07:00 Intake Total 2080 ml 960 ml Output Total 2200 ml 1000 ml Balance -120 ml -40 ml Results Result Diagram: 08/02/16 0435 08/02/16 0435 Results 24 hrs Laboratory Tests Test 08/02/16 04:35 Anion Gap 9 Basophils # 0.0 Basophils % 0.4 Blood Morphology Comment Blood Urea Nitrogen 16 Calcium Level 7.3 L Carbon Dioxide Level 25 Chloride Level 110 Creatinine 1.32 H Eosinophils # 0.2 Eosinophils % 2.5 Glucose Level 91 Hematocrit 29.9 L Hemoglobin 10.0 L Lymphocytes # 1.6 Lymphocytes % 23.9 Magnesium Level 1.8 Mean Corpuscular Hemoglobin 29.4 Mean Corpuscular Hemoglobin Concent 33.3 Mean Corpuscular Volume 88.3 Mean Platelet Volume 7.8 Monocytes # 0.6 Monocytes % 8.8 Neutrophils # 4.3 Neutrophils % 64.4 Nucleated Red Blood Cells # 0.0 Nucleated Red Blood Cells % 0.0 Phosphorus Level 4.1 Platelet Count 432 Potassium Level 3.8 Red Blood Count 3.39 L Red Cell Distribution Width 15.2 H Sodium Level 140 White Blood Count 6.6 # Medications Medications Current Medications Ondansetron HCl (Zofran Inj) 4 mg Q6H PRN IV NAUSEA AND/OR VOMITING Last administered on 07/27/16 09:06; Admin Dose 4 MG; Start 07/23/16 at 17:00 Acetaminophen (Tylenol Tab) 650 mg Q6H PRN PO PAIN LEVEL 1-3 OR FEVER Last administered on 07/28/16 08:36; Admin Dose 650 MG; Start 07/23/16 at 17:00 Docusate Sodium (Colace) 100 mg Q12H PRN PO CONSTIPATION Last administered on 14:13; Admin Dose 100 MG; Start 07/23/16 at 17:00 Zolpidem Tartrate (Ambien) 5 mg QHS PRN PO SLEEP; Start 07/23/16 at 17:00 Heparin Sodium (Porcine) (Heparin (5000 Units/0.5 ml)) 5,000 unit Q12 SC Last administered on 08/02/16 08:33; Admin Dose 5,000 UNIT; Start 07/23/16 at 21:00 Fish Oil 1000 mg 1,000 mg BID PO Last administered on 08/02/16 08:24; Admin Dose 1,000 MG; Start 07/24/16 at 10:00 Sodium Chloride (NS) 1,000 ml @ 40 mls/hr Q24H IV Last administered on 17:13; Admin Dose 40 MLS/HR; Start 07/24/16 at 10:00 Morphine Sulfate (morphine) 4 mg Q4H PRN IV SEVERE PAIN LEVEL 7-10 Last administered on 08/02/16 06:06; Admin Dose 4 MG; Start 07/24/16 at 13:00 Acetaminophen/ Hydrocodone Bitart ([place] (7.5-325)) 1 tab Q4H PRN PO PAIN LEVEL 4-6 Last administered on 08/02/16 08:24; Admin Dose 1 TAB; Start 07/24/16 at 11:00 Famotidine 20 mg 20 mg Q24H PO Last administered on 08/01/16 13:23; Admin Dose 20 MG; Start 07/24/16 at 14:00 Ertapenem/Sodium Chloride (Invanz/NS) 100 ml @ 200 mls/hr Q24H IVPB Last administered on 08/01/16 17:06; Admin Dose 200 MLS/HR; Start 07/26/16 at 17:00 Silver Sulfadiazine (Thermazene 1% 25 Gm) 1 applic DAILY TOP Last administered on 08/02/16 08:25; Admin Dose 1 APPLIC; Start 07/26/16 at 17:00 Vitamin A/Vitamin D 1 applic 1 applic DAILY PRN TOP DRY MOUTH Last administered on 07/27/16 15:10; Admin Dose 1 APPLIC; Start 07/27/16 at 14:00 Vancomycin HCl/ Sodium Chloride (Vancocin/NS) 500 ml @ 125 mls/hr Q24H IVPB Last administered on 08/02/16 05:24; Admin Dose 125 MLS/HR; Start 07/29/16 at 05 :00 Cyclobenzaprine HCl (Flexeril) 10 mg TID PO Last administered on 08/02/16 08: 24; Admin Dose 10 MG; Start 07/31/16 at 13:00; Stop 08/03/16 at 12:00 Lorazepam 1 mg 1 mg Q4 PRN IV ANXIETY Last administered on 08/01/16 13:27; Admin Dose 1 MG; Start 07/31/16 at 22:00 Levofloxacin/ Dextrose (Levaquin 500mg/ D5W 100 ml (Pmx)) 100 ml @ 100 mls/hr Q24H IVPB Last administered on 08/01/16 19:55; Admin Dose 100 MLS/HR; Start at 19:30 JEFF JENKINS NP Aug 02, 2016 11:44
--- NOTE | 2016-08-02 12:03 | PN ---
DATE: 08/02/2016 SUBJECTIVE: The patient is stable, no acute events overnight. No fevers, chills, nausea, vomiting. OBJECTIVE: VITAL SIGNS: Blood pressure is 141/80, respirations 16, pulse 62, temperature 97.4. HEENT: Head is normocephalic. NECK: Supple. HEART: Regular rate. LUNGS: Show diminished breath sounds at the base. ABDOMEN: Soft, nontender to palpation, no rebound or guarding. EXTREMITIES: Negative for clubbing, cyanosis. No edema on the left leg. Right lower extremity has dressings clean, dry and intact. DERMATOLOGIC: No rashes. MUSCULOSKELETAL: No joint effusions. NEUROLOGIC: No change in exam. MEDICATIONS: The patient's medications have been reviewed. LABORATORY DATA: Shows a sodium 140, potassium 3.9, BUN 16, creatinine 1.22. White count 6.6, hemo globin 10.0, hematocrit 29.9, platelet count is 432. ASSESSMENT AND PLAN: 1. Nonoliguric acute kidney injury with unknown baseline creatinine. Etiology of acute kidney inju ry is secondary to acute tubular necrosis and septic acute kidney injury. Renal function has signif icantly improved. The patient's IV fluids are being deescalated and weaned off. Continue current t reatment plan, supportive care, renally dose all meds, avoid nephrotoxins. 2. Anemia. Continue to monitor hemoglobin and hematocrit levels. 3. Mineral bone disorder. Continue to monitor calcium and phosphorus levels. 4. Lower extremity cellulitis. Continue current antibiotic regimen. Follow with podiatry. 5. Morbid obesity. Continue dietary modification. Dictated By: KIMBERLY MERCADO/HANNY Conf#: [id number] DID#: [id number]
[2016-08-02] MEDS: FAMOTIDINE 20 MG TAB PO SCH (13:22)
[2016-08-02] MEDS: ERTAPENEM SODIUM 1 GM in SOD CHLORIDE 0.9% 100 ML IVPB SCH (17:05)
[2016-08-02 19:50] VITALS: BP 116/56; RESP 20
[2016-08-02] MEDS: LEVOFLOXACIN 500MG/D5W (PMX) 100 ML IVPB SCH (20:09)
[2016-08-03] MEDS: SOD CHLORIDE 0.9% 1,000 ML IV SCH (04:23)
[2016-08-03] MEDS: VANCOMYCIN 2 GM in SOD CHLORIDE 0.9% 500 ML IVPB SCH (04:24)
[2016-08-03] MEDS: HYDROCODONE/APAP (7.5/325) TAB PO PRN ×2 (05:08→22:12)
[2016-08-03 06:08] LABS: POTASSIUM 4.3 mmol/L (3.5-5.1)
[2016-08-03 06:10] LABS: CREATININE 1.26 mg/dl (0.44-1.00)
[2016-08-03 06:11] LABS: CALCIUM 7.6 mg/dl (8.4-10.2); MAGNESIUM 1.7 mg/dl (1.7-2.5); PHOSPHORUS 4.1 mg/dl (2.5-4.9)
[2016-08-03 07:58] VITALS: BP 130/73; RESP 18
[2016-08-03] MEDS: LORAZEPAM 2 MG INJ IV PRN ×2 (08:00→22:48)
[2016-08-03] MEDS: CYCLOBENZAPRINE 10 MG TAB PO SCH (08:03)
[2016-08-03] MEDS: FISH OIL 1,000 MG CAP PO SCH ×2 (08:03→20:30)
[2016-08-03] MEDS: SILVER SULFADIAZINE 1% 25 GM CR TOP SCH (08:04)
[2016-08-03] MEDS: HEPARIN 5,000 UNIT/0.5 ML SYG SC SCH ×2 (08:15→20:36)
--- NOTE | 2016-08-03 10:58 | PN ---
DATE: SUBJECTIVE: The patient is stable, no acute events overnight. No fevers, chills, nausea, vomiting, no shortness of breath. OBJECTIVE: VITAL SIGNS: Blood pressure is 130/73, respiration 18, pulse 71, temperature 97.4. HEENT: Head is normocephalic. NECK: Supple. HEART: Regular rate. LUNGS: Show diminished breath sounds at base. ABDOMEN: Soft, nontender to palpation without rebound or guarding. EXTREMITIES: Negative for clubbing, cyanosis, or edema on the left leg. Right lower extremity has dressing that is clean, dry and intact. DERMATOLOGIC: No rashes. MUSCULOSKELETAL: No joint effusions. NEUROLOGIC: No change in exam. MEDICATIONS: The patient's medications have been reviewed. LABORATORY DATA: Sodium 138, potassium 4.3, BUN 15, creatinine 1.26. ASSESSMENT AND PLAN: 1. Nonoliguric acute kidney injury with unknown baseline creatinine. Etiology of acute kidney inju ry secondary to acute tubular necrosis and septic acute kidney injury. Renal function significantly improved. Continue current treatment plan, supportive care, renally dose all meds, avoid nephrotox ins. 2. Anemia. Continue to monitor hemoglobin and hematocrit levels. 3. Mineral bone disorder. Continue to monitor calcium and phosphorus levels. 4. Lower extremity cellulitis. Continue current antibiotic regimen. Follow up with podiatry. 5. Morbid obesity. Continue dietary modification. Dictated By: KIMBERLY MERCADO/HANNY Conf#: [id number] DID#: [id number]
--- NOTE | 2016-08-03 11:16 | PN ---
Date/Time of Note Date/Time of Note DATE: 08/03/16 TIME: 11:14 Assessment/Plan VTE Prophylaxis VTE Prophylaxis Intervention: heparin Lines/Catheters IV [facility] [place] Urinary Cath still in place: No Assessment/Plan Chief Complaint/Hosp Course Assessment/Plan 1. Right lower extremity cellulitis, improving, on invanz and vanco Follow-up podiatry and infectious disease doctor recommendations Status post Multiple percutaneous aspirations of the right dorsal foot and medial ankle, drainage of sanguineous exudate by podiatry. Follow-up culture and sensitivity 2. Acute renal insufficiency, improving, follow up with BMP/nephrology 3. Anion gap metabolic acidosis 07/22 #1 : resolved 4. Morbid obesity BMI 60 5. Dyslipidemia, continue medical management 6. DVP prophylaxis: heparin We will continue monitor patient closely for recommendation management treatment as clinical course Disposition when cleared by podiatry manager technical sales for insurance Aid Problems: Subjective 24 Hr Interval Summary Free Text/Dictation No acute changes Patient continues to complain of having right foot and ankle pain Tolerating oral intake Difficulty with ambulation Exam/Review of Systems Vital Signs Vitals Vital Signs Date Time Temp Pulse Resp B/P Pulse Ox O2 Delivery O2 Flow Rate FiO2 08/03/16 07:58 97.4 71 18 130/73 96 07/31/16 21:38 Room Air Intake and Output 08/02/16 08/02/16 08/03/16 15:00 23:00 07:00 Intake Total 1820 ml 605 ml Output Total 700 ml Balance 1120 ml 605 ml Exam General: The patient is morbidly obese, Not in acute distress. HEENT: Atraumatic, normocephalic. The pupils are equal and round . Neck: Supple with full range of motion. Chest: Normal expansion of the thorax during inspiration Lungs: Clear to auscultation bilaterally Heart: Normal S1-S2, Regular rhythm and rate. Abdomen: Soft , nontender, nondistended , bowel sounds are present. Extremities: Right ankle and foot in Farzad dressing, nonpitting edema no cyanosis Neurologic: Normal mental status,The patient is awake, alert and oriented . Results Result Diagram: 08/02/16 0435 08/03/16 0507 Results 24 hrs Laboratory Tests Test 08/03/16 05:07 Anion Gap 10 Blood Urea Nitrogen 15 Calcium Level 7.6 L Carbon Dioxide Level 23 Chloride Level 109 Creatinine 1.26 H Glucose Level 78 Magnesium Level 1.7 Phosphorus Level 4.1 Potassium Level 4.3 Sodium Level 138 Medications Medications Current Medications Ondansetron HCl (Zofran Inj) 4 mg Q6H PRN IV NAUSEA AND/OR VOMITING Last administered on 07/27/16 09:06; Admin Dose 4 MG; Start 07/23/16 at 17:00 Acetaminophen (Tylenol Tab) 650 mg Q6H PRN PO PAIN LEVEL 1-3 OR FEVER Last administered on 07/28/16 08:36; Admin Dose 650 MG; Start 07/23/16 at 17:00 Docusate Sodium (Colace) 100 mg Q12H PRN PO CONSTIPATION Last administered on 14:13; Admin Dose 100 MG; Start 07/23/16 at 17:00 Zolpidem Tartrate (Ambien) 5 mg QHS PRN PO SLEEP; Start 07/23/16 at 17:00 Heparin Sodium (Porcine) (Heparin (5000 Units/0.5 ml)) 5,000 unit Q12 SC Last administered on 08/03/16 08:15; Admin Dose 5,000 UNIT; Start 07/23/16 at 21:00 Fish Oil 1000 mg 1,000 mg BID PO Last administered on 08/03/16 08:03; Admin Dose 1,000 MG; Start 07/24/16 at 10:00 Sodium Chloride (NS) 1,000 ml @ 40 mls/hr Q24H IV Last administered on 04:23; Admin Dose 40 MLS/HR; Start 07/24/16 at 10:00 Morphine Sulfate (morphine) 4 mg Q4H PRN IV SEVERE PAIN LEVEL 7-10 Last administered on 08/02/16 22:47; Admin Dose 4 MG; Start 07/24/16 at 13:00 Acetaminophen/ Hydrocodone Bitart ([place] (7.5-325)) 1 tab Q4H PRN PO PAIN LEVEL 4-6 Last administered on 08/03/16 05:08; Admin Dose 1 TAB; Start 07/24/16 at 11:00 Famotidine 20 mg 20 mg Q24H PO Last administered on 08/02/16 13:22; Admin Dose 20 MG; Start 07/24/16 at 14:00 Ertapenem/Sodium Chloride (Invanz/NS) 100 ml @ 200 mls/hr Q24H IVPB Last administered on 08/02/16 17:05; Admin Dose 200 MLS/HR; Start 07/26/16 at 17:00 Silver Sulfadiazine (Thermazene 1% 25 Gm) 1 applic DAILY TOP Last administered on 08/03/16 08:04; Admin Dose 1 APPLIC; Start 07/26/16 at 17:00 Vitamin A/Vitamin D 1 applic 1 applic DAILY PRN TOP DRY MOUTH Last administered on 07/27/16 15:10; Admin Dose 1 APPLIC; Start 07/27/16 at 14:00 Vancomycin HCl/ Sodium Chloride (Vancocin/NS) 500 ml @ 125 mls/hr Q24H IVPB Last administered on 08/03/16 04:24; Admin Dose 125 MLS/HR; Start 07/29/16 at 05 :00 Cyclobenzaprine HCl (Flexeril) 10 mg TID PO Last administered on 08/03/16 08: 03; Admin Dose 10 MG; Start 07/31/16 at 13:00; Stop 08/03/16 at 12:00 Lorazepam 1 mg 1 mg Q4 PRN IV ANXIETY Last administered on 08/03/16 08:00; Admin Dose 1 MG; Start 07/31/16 at 22:00 Levofloxacin/ Dextrose (Levaquin 500mg/ D5W 100 ml (Pmx)) 100 ml @ 100 mls/hr Q24H IVPB Last administered on 08/02/16 20:09; Admin Dose 100 MLS/HR; Start at 19:30 GERRY TODD MD Aug 03, 2016 11:16
--- NOTE | 2016-08-03 12:31 | CONS ---
Date/Time of Note Date/Time of Note DATE: 08/03/16 TIME: 12:31 Assessment/Plan Assessment/Plan Chief Complaint/Hosp Course SUBJECTIVE: No acute changes. The patient is alert, lying comfortably in bed, no fevers ANTIMICROBIALS: IV vancomycin Levaquin, Invanz. OBJECTIVE: GENERAL: This is a morbidly obese, well-developed, middle-aged white woman who is lying comfortably in bed. HEENT: Head atraumatic, normocephalic. Sclerae anicteric. Buccal mucosa pink. NECK: Obese. CHEST: Rise symmetrical. Breath sounds clear. HEART: S1, S2. ABDOMEN: Soft, bowel tones present. EXTREMITIES: With right lower extremity edema, erythema and blistering, erythema descending. ASSESSMENT: 1. Right lower extremity cellulitis with blisters. 2. Morbid obesity. 3. Systemic inflammatory response syndrome with low grade fevers and leukocytosis. 4. Acute kidney injury, possible chronic kidney disease. 5. SIRS 2 to #1 PLAN: Improving, continue abx, RLE elevation, f/u podiatry recommendations DW staff Problems: Consultation Date/Type/Reason Admit Date/Time Jul 23, 2016 at 15:05 Initial Consult Date 07/24/16 Type of Consultation: ID Exam/Review of Systems Vital Signs Vitals Vital Signs Date Time Temp Pulse Resp B/P Pulse Ox O2 Delivery O2 Flow Rate FiO2 08/03/16 07:58 97.4 71 18 130/73 96 07/31/16 21:38 Room Air Intake and Output 08/02/16 08/02/16 08/03/16 15:00 23:00 07:00 Intake Total 1820 ml 605 ml Output Total 700 ml Balance 1120 ml 605 ml Results Result Diagram: 08/02/16 0435 08/03/16 0507 Results 24 hrs Laboratory Tests Test 08/03/16 05:07 Anion Gap 10 Blood Urea Nitrogen 15 Calcium Level 7.6 L Carbon Dioxide Level 23 Chloride Level 109 Creatinine 1.26 H Glucose Level 78 Magnesium Level 1.7 Phosphorus Level 4.1 Potassium Level 4.3 Sodium Level 138 Medications Medications Current Medications Ondansetron HCl (Zofran Inj) 4 mg Q6H PRN IV NAUSEA AND/OR VOMITING Last administered on 07/27/16t 09:06; Admin Dose 4 MG; Start 07/23/16 at 17:00 Acetaminophen (Tylenol Tab) 650 mg Q6H PRN PO PAIN LEVEL 1-3 OR FEVER Last administered on 07/28/16 08:36; Admin Dose 650 MG; Start 07/23/16 at 17:00 Docusate Sodium (Colace) 100 mg Q12H PRN PO CONSTIPATION Last administered on 14:13; Admin Dose 100 MG; Start 07/23/16 at 17:00 Zolpidem Tartrate (Ambien) 5 mg QHS PRN PO SLEEP; Start 07/23/16 at 17:00 Heparin Sodium (Porcine) (Heparin (5000 Units/0.5 ml)) 5,000 unit Q12 SC Last administered on 08/03/16 08:15; Admin Dose 5,000 UNIT; Start 07/23/16 at 21:00 Fish Oil 1000 mg 1,000 mg BID PO Last administered on 08/03/16 08:03; Admin Dose 1,000 MG; Start 07/24/16 at 10:00 Sodium Chloride (NS) 1,000 ml @ 40 mls/hr Q24H IV Last administered on 04:23; Admin Dose 40 MLS/HR; Start 07/24/16 at 10:00 Morphine Sulfate (morphine) 4 mg Q4H PRN IV SEVERE PAIN LEVEL 7-10 Last administered on 08/02/16 22:47; Admin Dose 4 MG; Start 07/24/16 at 13:00 Acetaminophen/ Hydrocodone Bitart ([place] (7.5-325)) 1 tab Q4H PRN PO PAIN LEVEL 4-6 Last administered on 08/03/16 05:08; Admin Dose 1 TAB; Start 07/24/16 at 11:00 Famotidine 20 mg 20 mg Q24H PO Last administered on 08/02/16 13:22; Admin Dose 20 MG; Start 07/24/16 at 14:00 Ertapenem/Sodium Chloride (Invanz/NS) 100 ml @ 200 mls/hr Q24H IVPB Last administered on 08/02/16 17:05; Admin Dose 200 MLS/HR; Start 07/26/16 at 17:00 Silver Sulfadiazine (Thermazene 1% 25 Gm) 1 applic DAILY TOP Last administered on 08/03/16 08:04; Admin Dose 1 APPLIC; Start 07/26/16 at 17:00 Vitamin A/Vitamin D 1 applic 1 applic DAILY PRN TOP DRY MOUTH Last administered on 07/27/16 15:10; Admin Dose 1 APPLIC; Start 07/27/16 at 14:00 Vancomycin HCl/ Sodium Chloride (Vancocin/NS) 500 ml @ 125 mls/hr Q24H IVPB Last administered on 08/03/16 04:24; Admin Dose 125 MLS/HR; Start 07/29/16 at 05 :00 Lorazepam 1 mg 1 mg Q4 PRN IV ANXIETY Last administered on 08/03/16 08:00; Admin Dose 1 MG; Start 07/31/16 at 22:00 Levofloxacin/ Dextrose (Levaquin 500mg/ D5W 100 ml (Pmx)) 100 ml @ 100 mls/hr Q24H IVPB Last administered on 08/02/16 20:09; Admin Dose 100 MLS/HR; Start at 19:30 JEFF JENKINS NP Aug 03, 2016 12:31
[2016-08-03] MEDS: FAMOTIDINE 20 MG TAB PO SCH (14:28)
[2016-08-03] MEDS: ERTAPENEM SODIUM 1 GM in SOD CHLORIDE 0.9% 100 ML IVPB SCH (17:24)
--- NOTE | 2016-08-03 18:36 | CONS ---
DATE OF ADMISSION: 07/23/2016 DATE OF CONSULTATION: 08/03/2016 SUBJECTIVE: The patient has right lower extremity cellulitis, edema and blisters, relates decrease d pain. Denies fever, nausea, vomiting or chills. The patient had aspiration of multiple sanguineo us bullae with cultures without growth. OBJECTIVE FINDINGS: VITAL SIGNS: Temperature 97.4, pulse 71, respiratory rate 18, blood pressure 130/73, pulse oximetry is 96. GENERAL: Alert, oriented, morbidly obese, has compression dressings to right lower extremity, decre ased edema, erythema resolving. Has sensation with light touch to digits. No pain with passive ran ge of motion of toes. The patient has a 2+ DP pulse. LABORATORIES: WBC 6.6, hemoglobin 10, hematocrit 29.9, platelets 432. Sodium 138, potassium 4.3, c hloride 109, CO2 of 23, BUN 15, creatinine 1.26. ASSESSMENT: 1. Right lower extremity cellulitis with blisters. 2. Morbid obesity. 3. Edema. PLAN: The patient seen and evaluated improving. May need 1 to 2 weeks of additional antibiotics. Reviewed cultures and both superficial and from aspiration, no growth to date. Continue skin care, wound care and edema reduction with compression wrap. Dictated By: SOFÍA DONNELLY/HANNY Conf#: [id number] DID#: [id number]
[2016-08-03 21:50] VITALS: BP 141/81; RESP 20
[2016-08-04] MEDS: SOD CHLORIDE 0.9% 1,000 ML IV SCH (03:46)
[2016-08-04 04:34] LABS: CREATININE 1.41 mg/dl (0.44-1.00)
[2016-08-04 04:35] LABS: CALCIUM 8.1 mg/dl (8.4-10.2)
[2016-08-04] MEDS: VANCOMYCIN 2 GM in SOD CHLORIDE 0.9% 500 ML IVPB SCH (05:02)
[2016-08-04 05:25] LABS: BASOPHILS % 0.7 % (0.0-2.0); EOSINOPHILS # 0.1 10^3/ul (0.0-0.5); EOSINOPHILS % 1.1 % (0.0-7.0); HEMATOCRIT 30.5 % (37.0-47.0); HEMOGLOBIN 10.1 g/dl (12.0-16.0); LYMPHOCYTES # 1.8 10^3/ul (0.8-2.9); LYMPHOCYTES % 26.2 % (15.0-51.0); MEAN CORPUSCULAR HEMOGLOBIN 29.4 pg (29.0-33.0); MEAN PLATELET VOLUME 8.4 fl (7.4-10.4); MONOCYTE # 0.6 10^3/ul (0.3-0.9); MONOCYTES % 8.3 % (0.0-11.0); NEUTROPHIL # 4.4 10^3/ul (1.6-7.5); NEUTROPHILS % 63.7 % (39.0-77.0); PLATELET COUNT 476 10^3/UL (140-440); RED BLOOD COUNT 3.43 10^6/ul (4.20-5.40); RED CELL DISTRIBUTION WIDTH 15.1 % (11.5-14.5); UNCORRECTED WBC 6.9 10^3/ul (4.8-10.8); WHITE BLOOD COUNT 6.9 10^3/ul (4.8-10.8)
[2016-08-04 05:28] LABS: CONDITION 1; LH ANALYZER COMMENTS 1
[2016-08-04 07:59] VITALS: BP_SYST 146; RESP 18
[2016-08-04] MEDS: SILVER SULFADIAZINE 1% 25 GM CR TOP SCH (09:00)
[2016-08-04] MEDS: FISH OIL 1,000 MG CAP PO SCH ×2 (09:13→20:42)
[2016-08-04] MEDS: HEPARIN 5,000 UNIT/0.5 ML SYG SC SCH ×2 (09:25→20:48)
[2016-08-04] MEDS: LORAZEPAM 2 MG INJ IV PRN (10:10)
--- NOTE | 2016-08-04 10:18 | PN ---
Date/Time of Note Date/Time of Note DATE: 08/04/16 TIME: 10:16 Assessment/Plan VTE Prophylaxis VTE Prophylaxis Intervention: heparin Lines/Catheters IV Catheter Type (from [facility] [place] Peripheral IV Urinary Cath still in place: No Assessment/Plan Assessment/Plan 1. Right lower extremity cellulitis, improving, on invanz and vanco Follow-up podiatry and infectious disease doctor recommendations Status post Multiple percutaneous aspirations of the right dorsal foot and medial ankle, drainage of sanguineous exudate by podiatry. Follow-up culture and sensitivity 2. Acute renal insufficiency,Cr bumped to 1.4- renal has been following 3. Anion gap metabolic acidosis 07/22 #1 : resolved 4. Morbid obesity BMI 60 5. Dyslipidemia, continue medical management 6. DVP prophylaxis: heparin Disposition when cleared by podiatry. Total time spent is More than 45 minutes advertising campaign manager for insurance Aid Subjective 24 Hr Interval Summary Free Text/Dictation no acute events, Cr bumped to 1.4- Nephrology following, on IV abx, Insurance help is pending Exam/Review of Systems Vital Signs Vitals Vital Signs Date Time Temp Pulse Resp B/P Pulse Ox O2 Delivery O2 Flow Rate FiO2 08/04/16 07:59 98.0 74 18 146/ 96 07/31/16 21:38 Room Air Intake and Output 08/03/16 08/03/16 08/04/16 15:00 23:00 07:00 Intake Total 2000 ml 500 ml Output Total 1050 ml Balance 950 ml 500 ml Exam General: no acute distress Chest: Normal expansion of the thorax during inspiration Lungs: Clear to auscultation bilaterally Heart: Normal S1-S2, Regular rhythm and rate. Abdomen: Soft , nontender, nondistended , bowel sounds are present. Extremities: Right ankle and foot in Farzad dressing, nonpitting edema no cyanosis . Results Result Diagram: 08/04/16 0405 08/04/16 0405 Results 24 hrs Laboratory Tests Test 08/04/16 04:05 Anion Gap 11 Basophils # 0.0 Basophils % 0.7 Blood Morphology Comment Blood Urea Nitrogen 19 Calcium Level 8.1 L Carbon Dioxide Level 27 Chloride Level 108 Creatinine 1.41 H Eosinophils # 0.1 Eosinophils % 1.1 Glucose Level 88 Hematocrit 30.5 L Hemoglobin 10.1 L Lymphocytes # 1.8 Lymphocytes % 26.2 Mean Corpuscular Hemoglobin 29.4 Mean Corpuscular Hemoglobin Concent 33.0 Mean Corpuscular Volume 89.0 Mean Platelet Volume 8.4 Monocytes # 0.6 Monocytes % 8.3 Neutrophils # 4.4 Neutrophils % 63.7 Nucleated Red Blood Cells # 0.0 Nucleated Red Blood Cells % 0.0 Platelet Count 476 H Potassium Level 4.0 Red Blood Count 3.43 L Red Cell Distribution Width 15.1 H Sodium Level 142 Vancomycin Level Trough 16.7 White Blood Count 6.9 Medications Medications Current Medications Ondansetron HCl (Zofran Inj) 4 mg Q6H PRN IV NAUSEA AND/OR VOMITING Last administered on 07/27/16 09:06; Admin Dose 4 MG; Start 07/23/16 at 17:00 Acetaminophen (Tylenol Tab) 650 mg Q6H PRN PO PAIN LEVEL 1-3 OR FEVER Last administered on 07/28/16 08:36; Admin Dose 650 MG; Start 07/23/16 at 17:00 Docusate Sodium (Colace) 100 mg Q12H PRN PO CONSTIPATION Last administered on 14:13; Admin Dose 100 MG; Start 07/23/16 at 17:00 Zolpidem Tartrate (Ambien) 5 mg QHS PRN PO SLEEP; Start 07/23/16 at 17:00 Heparin Sodium (Porcine) (Heparin (5000 Units/0.5 ml)) 5,000 unit Q12 SC Last administered on 08/04/16 09:25; Admin Dose 5,000 UNIT; Start 07/23/16 at 21:00 Fish Oil 1000 mg 1,000 mg BID PO Last administered on 08/04/16 09:13; Admin Dose 1,000 MG; Start 07/24/16 at 10:00 Sodium Chloride (NS) 1,000 ml @ 40 mls/hr Q24H IV Last administered on 04:23; Admin Dose 40 MLS/HR; Start 07/24/16 at 10:00 Morphine Sulfate (morphine) 4 mg Q4H PRN IV SEVERE PAIN LEVEL 7-10 Last administered on 08/02/16 22:47; Admin Dose 4 MG; Start 07/24/16 at 13:00 Acetaminophen/ Hydrocodone Bitart ([place] (7.5-325)) 1 tab Q4H PRN PO PAIN LEVEL 4-6 Last administered on 08/03/16 22:12; Admin Dose 1 TAB; Start 07/24/16 at 11:00 Famotidine 20 mg 20 mg Q24H PO Last administered on 08/03/16 14:28; Admin Dose 20 MG; Start 07/24/16 at 14:00 Ertapenem/Sodium Chloride (Invanz/NS) 100 ml @ 200 mls/hr Q24H IVPB Last administered on 08/03/16 17:24; Admin Dose 200 MLS/HR; Start 07/26/16 at 17:00 Silver Sulfadiazine (Thermazene 1% 25 Gm) 1 applic DAILY TOP Last administered on 08/03/16 08:04; Admin Dose 1 APPLIC; Start 07/26/16 at 17:00 Vitamin A/Vitamin D (Vitamin A & D Oint) 1 applic DAILY PRN TOP DRY MOUTH Last administered on 07/27/16 15:10; Admin Dose 1 APPLIC; Start 07/27/16 at 14:00 Lorazepam 1 mg 1 mg Q4 PRN IV ANXIETY Last administered on 08/04/16 10:10; Admin Dose 1 MG; Start 07/31/16 at 22:00 Vancomycin HCl/ Sodium Chloride (Vancocin/NS) 500 ml @ 125 mls/hr Q24H IVPB ; Start 08/05/16 at 06:00 DOMENICO BAEZ MD Aug 04, 2016 10:18
--- NOTE | 2016-08-04 11:08 | PN ---
DATE: 08/04/2016 SUBJECTIVE: The patient is stable, no acute events overnight. No fevers, chills, nausea, vomiting, no shortness of breath. OBJECTIVE: VITAL SIGNS: Blood pressure 141/81, respirations 20, pulse 75, temperature 98.6. HEENT: Head is normocephalic. NECK: Supple. HEART: Regular rate. LUNGS: Show diminished breath sounds at the base. ABDOMEN: Soft, nontender to palpation. No rebound or guarding. EXTREMITIES: Negative for clubbing, cyanosis, edema on the left leg. Right lower extremity has not ed swelling with dressing clean, dry and intact. DERMATOLOGIC: Clean. No rashes. MUSCULOSKELETAL: No joint effusions. NEUROLOGIC: No change in exam. MEDICATIONS: The patient's medications have been reviewed. LABORATORY DATA: Shows sodium 142, potassium 4.0, chloride 108, BUN 19, creatinine 1.51. White cou nt 6.9, hemoglobin 10.1, hematocrit 30.5, platelet count is 476. ASSESSMENT AND PLAN: 1. Nonoliguric acute kidney injury with unknown baseline creatinine. Etiology of acute kidney inju ry secondary to acute tubular necrosis and septic acute kidney injury. The patient's renal function is fluctuating. Creatinine has increased over the last 48 hours. We will continue to monitor clos rogerio. Continue supportive care, renally dose all meds, avoid nephrotoxins. 2. Anemia. Continue to monitor hemoglobin and hematocrit levels. 3. Metabolic disorder. Continue to monitor calcium and phosphorus levels. 4. Lower extremity cellulitis. Continue current antibiotic regimen. 5. Morbid obesity. Continue dietary modification. Dictated By: KIMBERLY MERCADO/HANNY Conf#: [id number] DID#: [id number]
--- NOTE | 2016-08-04 12:50 | CONS ---
Date/Time of Note Date/Time of Note DATE: 08/04/16 TIME: 12:48 Assessment/Plan Assessment/Plan Chief Complaint/Hosp Course SUBJECTIVE: No acute changes. The patient is alert, ambulating with PT, feels better, no fevers ANTIMICROBIALS: Vancomycin, Invanz. OBJECTIVE: GENERAL: This is a morbidly obese, well-developed, middle-aged white woman in no distress. HEENT: Head atraumatic, normocephalic. Sclerae anicteric. Buccal mucosa pink. NECK: Obese. CHEST: Rise symmetrical. Breath sounds clear. HEART: S1, S2. ABDOMEN: Soft, bowel tones present. EXTREMITIES: With right lower extremity edema and dressing intact. ASSESSMENT: 1. Right lower extremity cellulitis. 2. Morbid obesity. 3. Systemic inflammatory response syndrome with low grade fevers and leukocytosis. 4. Acute kidney injury, possible chronic kidney disease. 5. SIRS 2 to #1 PLAN: Continues to improve, continue abx, RLE elevation, f/u podiatry recommendations. DW staff Problems: Consultation Date/Type/Reason Admit Date/Time Jul 23, 2016 at 15:05 Initial Consult Date 07/24/16 Type of Consultation: ID Exam/Review of Systems Vital Signs Vitals Vital Signs Date Time Temp Pulse Resp B/P Pulse Ox O2 Delivery O2 Flow Rate FiO2 08/04/16 07:59 98.0 74 18 146/ 96 07/31/16 21:38 Room Air Intake and Output 08/03/16 08/03/16 08/04/16 15:00 23:00 07:00 Intake Total 2000 ml 500 ml Output Total 1050 ml Balance 950 ml 500 ml Results Result Diagram: 08/04/16 0405 08/04/16 0405 Results 24 hrs Laboratory Tests Test 08/04/16 04:05 Anion Gap 11 Basophils # 0.0 Basophils % 0.7 Blood Morphology Comment Blood Urea Nitrogen 19 Calcium Level 8.1 L Carbon Dioxide Level 27 Chloride Level 108 Creatinine 1.41 H Eosinophils # 0.1 Eosinophils % 1.1 Glucose Level 88 Hematocrit 30.5 L Hemoglobin 10.1 L Lymphocytes # 1.8 Lymphocytes % 26.2 Mean Corpuscular Hemoglobin 29.4 Mean Corpuscular Hemoglobin Concent 33.0 Mean Corpuscular Volume 89.0 Mean Platelet Volume 8.4 Monocytes # 0.6 Monocytes % 8.3 Neutrophils # 4.4 Neutrophils % 63.7 Nucleated Red Blood Cells # 0.0 Nucleated Red Blood Cells % 0.0 Platelet Count 476 H Potassium Level 4.0 Red Blood Count 3.43 L Red Cell Distribution Width 15.1 H Sodium Level 142 Vancomycin Level Trough 16.7 White Blood Count 6.9 Medications Medications Current Medications Ondansetron HCl (Zofran Inj) 4 mg Q6H PRN IV NAUSEA AND/OR VOMITING Last administered on 07/27/16 09:06; Admin Dose 4 MG; Start 07/23/16 at 17:00 Acetaminophen (Tylenol Tab) 650 mg Q6H PRN PO PAIN LEVEL 1-3 OR FEVER Last administered on 07/28/16 08:36; Admin Dose 650 MG; Start 07/23/16 at 17:00 Docusate Sodium (Colace) 100 mg Q12H PRN PO CONSTIPATION Last administered on 14:13; Admin Dose 100 MG; Start 07/23/16 at 17:00 Zolpidem Tartrate (Ambien) 5 mg QHS PRN PO SLEEP; Start 07/23/16 at 17:00 Heparin Sodium (Porcine) (Heparin (5000 Units/0.5 ml)) 5,000 unit Q12 SC Last administered on 08/04/16 09:25; Admin Dose 5,000 UNIT; Start 07/23/16 at 21:00 Fish Oil 1000 mg 1,000 mg BID PO Last administered on 08/04/16 09:13; Admin Dose 1,000 MG; Start 07/24/16 at 10:00 Sodium Chloride (NS) 1,000 ml @ 40 mls/hr Q24H IV Last administered on 04:23; Admin Dose 40 MLS/HR; Start 07/24/16 at 10:00 Morphine Sulfate (morphine) 4 mg Q4H PRN IV SEVERE PAIN LEVEL 7-10 Last administered on 08/02/16 22:47; Admin Dose 4 MG; Start 07/24/16 at 13:00 Acetaminophen/ Hydrocodone Bitart ([place] (7.5-325)) 1 tab Q4H PRN PO PAIN LEVEL 4-6 Last administered on 08/03/16 22:12; Admin Dose 1 TAB; Start 07/24/16 at 11:00 Famotidine 20 mg 20 mg Q24H PO Last administered on 08/03/16 14:28; Admin Dose 20 MG; Start 07/24/16 at 14:00 Ertapenem/Sodium Chloride (Invanz/NS) 100 ml @ 200 mls/hr Q24H IVPB Last administered on 08/03/16 17:24; Admin Dose 200 MLS/HR; Start 07/26/16 at 17:00 Silver Sulfadiazine (Thermazene 1% 25 Gm) 1 applic DAILY TOP Last administered on 08/03/16 08:04; Admin Dose 1 APPLIC; Start 07/26/16 at 17:00 Vitamin A/Vitamin D (Vitamin A & D Oint) 1 applic DAILY PRN TOP DRY MOUTH Last administered on 07/27/16 15:10; Admin Dose 1 APPLIC; Start 07/27/16 at 14:00 Lorazepam 1 mg 1 mg Q4 PRN IV ANXIETY Last administered on 08/04/16 10:10; Admin Dose 1 MG; Start 07/31/16 at 22:00 Vancomycin HCl/ Sodium Chloride (Vancocin/NS) 500 ml @ 125 mls/hr Q24H IVPB ; Start 08/05/16 at 06:00 JEFF JENKINS NP Aug 04, 2016 12:50
[2016-08-04] MEDS: FAMOTIDINE 20 MG TAB PO SCH (14:33)
[2016-08-04] MEDS: ERTAPENEM SODIUM 1 GM in SOD CHLORIDE 0.9% 100 ML IVPB SCH (17:10)
[2016-08-04 20:03] VITALS: BP 100/59; RESP 18
[2016-08-04] MEDS: ACETAMINOPHEN 325 MG TAB PO PRN (22:51)
[2016-08-05] MEDS: LORAZEPAM 2 MG INJ IV PRN ×2 (01:26→13:38)
[2016-08-05] MEDS: SOD CHLORIDE 0.9% 1,000 ML IV SCH ×2 (03:46→12:17)
[2016-08-05] MEDS: VANCOMYCIN 1.75 GM in NS 500 ML IVPB SCH (05:51)
[2016-08-05 06:36] LABS: CREATININE 1.35 mg/dl (0.44-1.00)
[2016-08-05 07:15] VITALS: BP 135/66; RESP 20
[2016-08-05] MEDS: FISH OIL 1,000 MG CAP PO SCH ×2 (08:58→21:32)
[2016-08-05] MEDS: HEPARIN 5,000 UNIT/0.5 ML SYG SC SCH ×2 (09:00→21:35)
[2016-08-05] MEDS: SILVER SULFADIAZINE 1% 25 GM CR TOP SCH (09:00)
--- NOTE | 2016-08-05 09:43 | PN ---
DATE: 08/05/2016 SUBJECTIVE: The patient is stable, no acute events overnight. No fever, chills, nausea or vomiting. OBJECTIVE: VITAL SIGNS: Blood pressure is 135/66, respirations 20, pulse 80, temperature 98.6. HEENT: Head is normocephalic. NECK: Supple. HEART: Regular rate. LUNGS: Show diminished breath sounds at the base. ABDOMEN: Soft, nontender to palpation. No rebound or guarding. EXTREMITIES: Negative for clubbing, cyanosis. No edema on the left leg. Right lower extremity has dressings clean, dry, intact, and noted swelling. NEUROLOGIC: No change in exam. MEDICATIONS: The patient's medications have been reviewed. LABORATORY DATA: BUN 19, creatinine 1.35. ASSESSMENT AND PLAN: 1. Nonoliguric acute kidney injury with unknown baseline creatinine. Etiology of acute kidney inju ry is secondary to acute tubular necrosis and septic acute kidney injury. Renal function has slowly improved from admission. Creatinine has been fluctuating last 24 to 48 hours, but overall stable. At this point, continue current treatment plan, supportive care, renally dose meds, avoid nephrotox ins. 2. Anemia. Continue to monitor hemoglobin and hematocrit levels. 3. Mineral bone disorder. Continue to monitor calcium and phosphorus levels. 4. Lower extremity cellulitis. Continue current antibiotic regimen. 5. Morbid obesity. Continue dietary modification. Dictated By: KIMBERLY MERCADO/HANNY Conf#: [id number] DID#: [id number]
--- NOTE | 2016-08-05 10:04 | PN ---
Date/Time of Note Date/Time of Note DATE: 08/05/16 TIME: 10:02 Assessment/Plan VTE Prophylaxis VTE Prophylaxis Intervention: heparin Lines/Catheters IV C[facility]ter Type ([facility] Peripheral IV Urinary Cath still in place: No Assessment/Plan Chief Complaint/Hosp Course Assessment/Plan 31F with: 1. Right lower extremity cellulitis, improving, on invanz and vanco Follow-up podiatry and infectious disease doctor recommendations Status post Multiple percutaneous aspirations of the right dorsal foot and medial ankle, drainage of sanguineous exudate by podiatry. Follow-up culture and sensitivity 2. Acute renal insufficiency,Cr 1.4 -> 1.35 - renal has been following 3. Anion gap metabolic acidosis / #1 : resolved 4. Morbid obesity BMI 60 5. Dyslipidemia, continue medical management 6. DVP prophylaxis: heparin 7. Hallucinations/anxiety - will restart pt's home Buspar and Trazadone meds. Disposition when cleared by podiatry. 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 Denies RLE pain. Exam/Review of Systems Vital Signs Vitals Vital Signs Date Time Temp Pulse Resp B/P Pulse Ox O2 Delivery O2 Flow Rate FiO2 08/05/16 07:15 98.6 80 20 135/66 98 Intake and Output 08/04/16 08/04/16 08/05/16 15:00 23:00 07:00 Intake Total 1410 ml Balance 1410 ml Exam General: no acute distress, alert Chest: Normal expansion of the thorax during inspiration Lungs: Clear to auscultation bilaterally Heart: Normal S1-S2, Regular rhythm and rate. Abdomen: Soft , nontender, nondistended , bowel sounds are present. Extremities: Right ankle and foot in Farzad dressing, nonpitting edema no cyanosis Results Result Diagram: 08/04/16 0405 08/05/16 0555 Results 24 hrs Laboratory Tests Test 08/05/16 05:55 Blood Urea Nitrogen 19 Creatinine 1.35 H Medications Medications Current Medications Ondansetron HCl (Zofran Inj) 4 mg Q6H PRN IV NAUSEA AND/OR VOMITING Last administered on 07/27/16t 09:06; Admin Dose 4 MG; Start 07/23/16 at 17:00 Acetaminophen (Tylenol Tab) 650 mg Q6H PRN PO PAIN LEVEL 1-3 OR FEVER Last administered on 08/04/16 22:51; Admin Dose 650 MG; Start 07/23/16 at 17:00 Docusate Sodium (Colace) 100 mg Q12H PRN PO CONSTIPATION Last administered on 14:13; Admin Dose 100 MG; Start 07/23/16 at 17:00 Zolpidem Tartrate (Ambien) 5 mg QHS PRN PO SLEEP; Start 07/23/16 at 17:00 Heparin Sodium (Porcine) (Heparin (5000 Units/0.5 ml)) 5,000 unit Q12 SC Last administered on 08/05/16 09:00; Admin Dose 5,000 UNIT; Start 07/23/16 at 21:00 Fish Oil 1000 mg 1,000 mg BID PO Last administered on 08/05/16 08:58; Admin Dose 1,000 MG; Start 07/24/16 at 10:00 Sodium Chloride (NS) 1,000 ml @ 40 mls/hr Q24H IV Last administered on 04:23; Admin Dose 40 MLS/HR; Start 07/24/16 at 10:00 Morphine Sulfate (morphine) 4 mg Q4H PRN IV SEVERE PAIN LEVEL 7-10 Last administered on 08/02/16 22:47; Admin Dose 4 MG; Start 07/24/16 at 13:00 Acetaminophen/ Hydrocodone Bitart ([place] (7.5-325)) 1 tab Q4H PRN PO PAIN LEVEL 4-6 Last administered on 08/03/16 22:12; Admin Dose 1 TAB; Start 07/24/16 at 11:00 Famotidine 20 mg 20 mg Q24H PO Last administered on 08/04/16 14:33; Admin Dose 20 MG; Start 07/24/16 at 14:00 Ertapenem/Sodium Chloride (Invanz/NS) 100 ml @ 200 mls/hr Q24H IVPB Last administered on 08/04/16 17:10; Admin Dose 200 MLS/HR; Start 07/26/16 at 17:00 Silver Sulfadiazine (Thermazene 1% 25 Gm) 1 applic DAILY TOP Last administered on 08/04/16 09:00; Admin Dose 1 APPLIC; Start 07/26/16 at 17:00 Vitamin A/Vitamin D (Vitamin A & D Oint) 1 applic DAILY PRN TOP DRY MOUTH Last administered on 07/27/16 15:10; Admin Dose 1 APPLIC; Start 07/27/16 at 14:00 Lorazepam 1 mg 1 mg Q4 PRN IV ANXIETY Last administered on 08/05/16 01:26; Admin Dose 1 MG; Start 07/31/16 at 22:00 Vancomycin HCl/ Sodium Chloride (Vancocin/NS) 500 ml @ 125 mls/hr Q24H IVPB Last administered on 08/05/16 05:51; Admin Dose 125 MLS/HR; Start 08/05/16 at 06:00 Buspirone HCl (Buspar) 5 mg BID PO ; Start 08/05/16 at 10:00 Trazodone HCl (Desyrel) 50 mg HS PO ; Start 08/05/16 at 21:00 RYAN BROWN Aug 05, 2016 10:04
[2016-08-05] MEDS: BUSPIRONE 5 MG TAB PO SCH ×2 (12:17→21:32)
[2016-08-05] MEDS: FAMOTIDINE 20 MG TAB PO SCH (13:27)
[2016-08-05] MEDS: ERTAPENEM SODIUM 1 GM in SOD CHLORIDE 0.9% 100 ML IVPB SCH (17:03)
--- NOTE | 2016-08-05 18:57 | PN ---
DATE: 08/05/2016 SUBJECTIVE: Patient became delusional and confused this morning. Currently, lying comfortably in b ed, with a sitter at bedside. She is in no distress, but very confused. No fevers. No labs. ANTIMICROBIALS: She is on: 1. IV vancomycin. 2. Invanz with vancomycin trough on 08/04 was 16.7. PHYSICAL EXAMINATION: GENERAL: Morbidly obese, middle-aged woman who is alert, in no distress. HEENT: Head atraumatic, normocephalic. Sclerae anicteric. Buccal mucosa pink. NECK: Supple. CHEST: Rise symmetrical. Breath sounds clear. HEART: S1, S2. ABDOMEN: Soft. Bowel sounds present. EXTREMITIES: With right lower extremity Farzad wrapped. ASSESSMENT: 1. Encephalopathy with change in mental status and confusion, etiology unclear. 2. Right lower extremity cellulitis, improved. 3. Morbid obesity. 4. Acute kidney injury, possibly chronic kidney disease. 5. Status post systemic inflammatory response syndrome. PLAN: The patient remains clinically stable, although now with a change in her mentation. No fever s. She is being followed by podiatry and nephrology. We will keep her on current antibiotics. Con tinue right lower extremity elevation. Dictated By: JEFF JENKINS CORPORATE LEGAL SECRETARY for BRYANT HERNANDEZ/NTS Conf#: [id number] DID#: [id number]
[2016-08-05] MEDS: ZOLPIDEM 5 MG TAB PO PRN (21:32)
[2016-08-05] MEDS: traZODone 50 MG TAB PO SCH (21:32)
[2016-08-06] MEDS: HYDROCODONE/APAP (7.5/325) TAB PO PRN (04:09)
[2016-08-06] MEDS: VANCOMYCIN 1.75 GM in NS 500 ML IVPB SCH (05:08)
[2016-08-06 07:07] LABS: BASOPHIL # 0.1 10^3/ul (0.0-0.1); EOSINOPHILS % 0.4 % (0.0-7.0); HEMATOCRIT 28.1 % (37.0-47.0); HEMOGLOBIN 9.4 g/dl (12.0-16.0); LYMPHOCYTES # 1.4 10^3/ul (0.8-2.9); LYMPHOCYTES % 18.6 % (15.0-51.0); MEAN CORPUSCULAR HEMOGLOBIN 29.7 pg (29.0-33.0); MEAN CORPUSCULAR HGB CONC 33.5 g/dl (32.0-37.0); MEAN CORPUSCULAR VOLUME 88.6 fl (82.0-101.0); MEAN PLATELET VOLUME 8.4 fl (7.4-10.4); MONOCYTE # 0.5 10^3/ul (0.3-0.9); MONOCYTES % 6.2 % (0.0-11.0); NEUTROPHIL # 5.5 10^3/ul (1.6-7.5); NEUTROPHILS % 73.8 % (39.0-77.0); PLATELET COUNT 466 10^3/UL (140-440); RED BLOOD COUNT 3.17 10^6/ul (4.20-5.40); RED CELL DISTRIBUTION WIDTH 15.8 % (11.5-14.5); UNCORRECTED WBC 7.4 10^3/ul (4.8-10.8); WHITE BLOOD COUNT 7.4 10^3/ul (4.8-10.8)
[2016-08-06 07:10] LABS: MAGNESIUM 1.7 mg/dl (1.7-2.5); PHOSPHORUS 3.3 mg/dl (2.5-4.9)
[2016-08-06 07:15] LABS: CONDITION 1; LH ANALYZER COMMENTS 1
[2016-08-06 07:25] VITALS: BP 170/81; RESP 18
[2016-08-06 07:38] LABS: POTASSIUM 3.9 mmol/L (3.5-5.1)
[2016-08-06 07:40] LABS: CREATININE 1.37 mg/dl (0.44-1.00)
[2016-08-06] MEDS: BUSPIRONE 5 MG TAB PO SCH ×2 (08:40→21:33)
[2016-08-06] MEDS: FISH OIL 1,000 MG CAP PO SCH ×2 (08:40→21:33)
[2016-08-06 08:44] VITALS: BP 147/92
[2016-08-06] MEDS: HEPARIN 5,000 UNIT/0.5 ML SYG SC SCH ×2 (08:47→21:43)
[2016-08-06] MEDS: SILVER SULFADIAZINE 1% 25 GM CR TOP SCH (08:48)
--- NOTE | 2016-08-06 08:55 | PN ---
DATE: 08/06/2016 SUBJECTIVE: The patient is stable, no acute events overnight, fevers, chills, nausea, vomiting. OBJECTIVE: VITAL SIGNS: Blood pressure 130/66, respirations 20, pulse 80, temperature 98.6. HEENT: Head is normocephalic. NECK: Supple. HEART: Regular rate. LUNGS: Show diminished breath sounds at the base. ABDOMEN: Soft, nontender to palpation, no rebound or guarding. EXTREMITIES: Negative for clubbing, cyanosis, or edema on the left leg. Right lower extremity has dressing clean, dry, and intact. DERMATOLOGIC: No rashes. MUSCULOSKELETAL: No joint effusions. NEUROLOGIC: No change in exam. MEDICATIONS: The patient's medications have been reviewed. LABORATORY DATA: Shows sodium 143, potassium 3.9, BUN 19, creatinine 1.37. White count 7.4, hemogl obin 9.4, hematocrit of 28.1, platelet count is 466. ASSESSMENT AND PLAN: 1. Nonoliguric acute kidney injury with unknown baseline creatinine. Etiology of acute kidney inju ry is secondary to acute tubular necrosis and septic acute kidney injury. Renal function appears to have stabilized from creatinine of 1.2 to 1.4 mg/dL. Continue current treatment plan, supportive c are, renally dose all meds, avoid nephrotoxins. 2. Anemia. Continue to monitor hemoglobin and hematocrit levels. 3. Metabolic disorder. Continue to monitor calcium, phosphorus levels. 4. Lower extremity cellulitis. The patient is status post incision and drainage, status post drain age. Continue wound care. Continue antibiotics. Follow up with podiatry and infectious disease. 5. Morbid obesity. Continue dietary modification. Dictated By: KIMBERLY MERCADO/HANNY Conf#: [id number] DID#: [id number]
--- NOTE | 2016-08-06 09:34 | PN ---
Date/Time of Note Date/Time of Note DATE: 08/06/16 TIME: 09:32 Assessment/Plan VTE Prophylaxis VTE Prophylaxis Intervention: heparin Lines/Catheters IV Catheter Type (from Nrs): Peripheral IV Urinary Cath still in place: Yes Reason Cath still needed: urinary retention Assessment/Plan Chief Complaint/Hosp Course Assessment/Plan 31F with: 1. Right lower extremity cellulitis, improving, on invanz and vanco Follow-up podiatry and infectious disease doctor recommendations Status post Multiple percutaneous aspirations of the right dorsal foot and medial ankle, drainage of sanguineous exudate by podiatry. Follow-up culture and sensitivity 2. Acute renal insufficiency,Cr 1.4 -> 1.35 ->1.37 renal has been following 3. Anion gap metabolic acidosis 07/22 #1 : resolved 4. Morbid obesity BMI 60 5. Dyslipidemia, continue medical management 6. DVP prophylaxis: heparin 7. Hallucinations/anxiety - continue Buspar and Trazadone meds, monitor Disposition when cleared by podiatry. 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 Exam/Review of Systems Vital Signs Vitals Vital Signs Date Time Temp Pulse Resp B/P Pulse Ox O2 Delivery O2 Flow Rate FiO2 08/06/16 08:44 88 147/92 08/06/16 07:25 98.8 18 97 Intake and Output 08/05/16 08/05/16 08/06/16 15:00 23:00 07:00 Intake Total 700 ml 1100 ml Balance 700 ml 1100 ml Exam General: no acute distress, alert Chest: Normal expansion of the thorax during inspiration Lungs: Clear to auscultation bilaterally Heart: Normal S1-S2, Regular rhythm and rate. Abdomen: Soft , nontender, nondistended , bowel sounds are present. Extremities: Right ankle and foot in Farzad dressing, nonpitting edema no cyanosis Results Result Diagram: 08/06/16 0525 08/06/16 0525 Results 24 hrs Laboratory Tests Test 08/06/16 05:25 Anion Gap 17 H Basophils # 0.1 Basophils % 1.0 Blood Morphology Comment Blood Urea Nitrogen 19 Calcium Level 8.0 L Carbon Dioxide Level 22 Chloride Level 108 Creatinine 1.37 H Eosinophils # 0.0 Eosinophils % 0.4 Glucose Level 76 Hematocrit 28.1 L Hemoglobin 9.4 L Lymphocytes # 1.4 Lymphocytes % 18.6 Magnesium Level 1.7 Mean Corpuscular Hemoglobin 29.7 Mean Corpuscular Hemoglobin Concent 33.5 Mean Corpuscular Volume 88.6 Mean Platelet Volume 8.4 Monocytes # 0.5 Monocytes % 6.2 Neutrophils # 5.5 Neutrophils % 73.8 Nucleated Red Blood Cells # 0.0 Nucleated Red Blood Cells % 0.0 Phosphorus Level 3.3 Platelet Count 466 H Potassium Level 3.9 Red Blood Count 3.17 L Red Cell Distribution Width 15.8 H Sodium Level 143 White Blood Count 7.4 Medications Medications Current Medications Ondansetron HCl (Zofran Inj) 4 mg Q6H PRN IV NAUSEA AND/OR VOMITING Last administered on 07/27/16 09:06; Admin Dose 4 MG; Start 07/23/16 at 17:00 Acetaminophen (Tylenol Tab) 650 mg Q6H PRN PO PAIN LEVEL 1-3 OR FEVER Last administered on 08/04/16 22:51; Admin Dose 650 MG; Start 07/23/16 at 17:00 Docusate Sodium (Colace) 100 mg Q12H PRN PO CONSTIPATION Last administered on 14:13; Admin Dose 100 MG; Start 07/23/16 at 17:00 Zolpidem Tartrate (Ambien) 5 mg QHS PRN PO SLEEP Last administered on 21:32; Admin Dose 5 MG; Start 07/23/16 at 17:00 Heparin Sodium (Porcine) (Heparin (5000 Units/0.5 ml)) 5,000 unit Q12 SC Last administered on 08/06/16 08:47; Admin Dose 5,000 UNIT; Start 07/23/16 at 21:00 Fish Oil 1000 mg 1,000 mg BID PO Last administered on 08/06/16 08:40; Admin Dose 1,000 MG; Start 07/24/16 at 10:00 Sodium Chloride (NS) 1,000 ml @ 40 mls/hr Q24H IV Last administered on 12:17; Admin Dose 40 MLS/HR; Start 07/24/16 at 10:00 Morphine Sulfate (morphine) 4 mg Q4H PRN IV SEVERE PAIN LEVEL 7-10 Last administered on 08/02/16 22:47; Admin Dose 4 MG; Start 07/24/16 at 13:00 Acetaminophen/ Hydrocodone Bitart ([place] (7.5-325)) 1 tab Q4H PRN PO PAIN LEVEL 4-6 Last administered on 08/06/16 04:09; Admin Dose 1 TAB; Start 07/24/16 at 11:00 Famotidine 20 mg 20 mg Q24H PO Last administered on 08/05/16 13:27; Admin Dose 20 MG; Start 07/24/16 at 14:00 Ertapenem/Sodium Chloride (Invanz/NS) 100 ml @ 200 mls/hr Q24H IVPB Last administered on 08/05/16 17:03; Admin Dose 200 MLS/HR; Start 07/26/16 at 17:00 Silver Sulfadiazine (Thermazene 1% 25 Gm) 1 applic DAILY TOP Last administered on 08/06/16 08:48; Admin Dose 1 APPLIC; Start 07/26/16 at 17:00 Vitamin A/Vitamin D (Vitamin A & D Oint) 1 applic DAILY PRN TOP DRY MOUTH Last administered on 07/27/16 15:10; Admin Dose 1 APPLIC; Start 07/27/16 at 14:00 Lorazepam 1 mg 1 mg Q4 PRN IV ANXIETY Last administered on 08/05/16 13:38; Admin Dose 1 MG; Start 07/31/16 at 22:00 Vancomycin HCl/ Sodium Chloride (Vancocin/NS) 500 ml @ 125 mls/hr Q24H IVPB Last administered on 08/06/16 05:08; Admin Dose 125 MLS/HR; Start 08/05/16 at 06:00 Buspirone HCl (Buspar) 5 mg BID PO Last administered on 08/06/16 08:40; Admin Dose 5 MG; Start 08/05/16 at 10:00 Trazodone HCl (Desyrel) 50 mg HS PO Last administered on 08/05/16 21:32; Admin Dose 50 MG; Start 08/05/16 at 21:00 RYAN BROWN Aug 06, 2016 09:34
--- NOTE | 2016-08-06 12:59 | CONS ---
Date/Time of Note Date/Time of Note DATE: 08/06/16 TIME: 12:58 Assessment/Plan Assessment/Plan Chief Complaint/Hosp Course SUBJECTIVE: No acute changes. Sitting up in a chair, looks comfortable ANTIMICROBIALS: Vancomycin, Invanz. OBJECTIVE: GENERAL: This is a morbidly obese, well-developed, middle-aged white woman in no distress. HEENT: Head atraumatic, normocephalic. Sclerae anicteric. Buccal mucosa pink. NECK: Obese. CHEST: Rise symmetrical. Breath sounds clear. HEART: S1, S2. ABDOMEN: Soft, bowel tones present. EXTREMITIES: With right lower extremity edema and dressing intact. ASSESSMENT: 1. Right lower extremity cellulitis. 2. Morbid obesity. 3. Systemic inflammatory response syndrome with low grade fevers and leukocytosis. 4. Acute kidney injury, possible chronic kidney disease. 5. SIRS 2 to #1 PLAN: Stable, RLE edema persists, will continue Vancomycin, dc Invanz, continue LE elevation, podiatry rec-s DW patient Problems: Consultation Date/Type/Reason Admit Date/Time Jul 23, 2016 at 15:05 Initial Consult Date 07/24/16 Type of Consultation: ID Exam/Review of Systems Vital Signs Vitals Vital Signs Date Time Temp Pulse Resp B/P Pulse Ox O2 Delivery O2 Flow Rate FiO2 08/06/16 08:44 88 147/92 08/06/16 07:25 98.8 18 97 Intake and Output 08/05/16 08/05/16 08/06/16 15:00 23:00 07:00 Intake Total 700 ml 1100 ml Balance 700 ml 1100 ml Results Result Diagram: 08/06/16 0525 08/06/16 0525 Results 24 hrs Laboratory Tests Test 08/06/16 05:25 Anion Gap 17 H Basophils # 0.1 Basophils % 1.0 Blood Morphology Comment Blood Urea Nitrogen 19 Calcium Level 8.0 L Carbon Dioxide Level 22 Chloride Level 108 Creatinine 1.37 H Eosinophils # 0.0 Eosinophils % 0.4 Glucose Level 76 Hematocrit 28.1 L Hemoglobin 9.4 L Lymphocytes # 1.4 Lymphocytes % 18.6 Magnesium Level 1.7 Mean Corpuscular Hemoglobin 29.7 Mean Corpuscular Hemoglobin Concent 33.5 Mean Corpuscular Volume 88.6 Mean Platelet Volume 8.4 Monocytes # 0.5 Monocytes % 6.2 Neutrophils # 5.5 Neutrophils % 73.8 Nucleated Red Blood Cells # 0.0 Nucleated Red Blood Cells % 0.0 Phosphorus Level 3.3 Platelet Count 466 H Potassium Level 3.9 Red Blood Count 3.17 L Red Cell Distribution Width 15.8 H Sodium Level 143 White Blood Count 7.4 Medications Medications Current Medications Ondansetron HCl (Zofran Inj) 4 mg Q6H PRN IV NAUSEA AND/OR VOMITING Last administered on 07/27/16 09:06; Admin Dose 4 MG; Start 07/23/16 at 17:00 Acetaminophen (Tylenol Tab) 650 mg Q6H PRN PO PAIN LEVEL 1-3 OR FEVER Last administered on 08/04/16 22:51; Admin Dose 650 MG; Start 07/23/16 at 17:00 Docusate Sodium (Colace) 100 mg Q12H PRN PO CONSTIPATION Last administered on 14:13; Admin Dose 100 MG; Start 07/23/16 at 17:00 Zolpidem Tartrate (Ambien) 5 mg QHS PRN PO SLEEP Last administered on 21:32; Admin Dose 5 MG; Start 07/23/16 at 17:00 Heparin Sodium (Porcine) (Heparin (5000 Units/0.5 ml)) 5,000 unit Q12 SC Last administered on 08/06/16 08:47; Admin Dose 5,000 UNIT; Start 07/23/16 at 21:00 Fish Oil 1000 mg 1,000 mg BID PO Last administered on 08/06/16 08:40; Admin Dose 1,000 MG; Start 07/24/16 at 10:00 Sodium Chloride (NS) 1,000 ml @ 40 mls/hr Q24H IV Last administered on 12:17; Admin Dose 40 MLS/HR; Start 07/24/16 at 10:00 Morphine Sulfate (morphine) 4 mg Q4H PRN IV SEVERE PAIN LEVEL 7-10 Last administered on 08/02/16 22:47; Admin Dose 4 MG; Start 07/24/16 at 13:00 Acetaminophen/ Hydrocodone Bitart ([place] (7.5-325)) 1 tab Q4H PRN PO PAIN LEVEL 4-6 Last administered on 08/06/16 04:09; Admin Dose 1 TAB; Start 07/24/16 at 11:00 Famotidine 20 mg 20 mg Q24H PO Last administered on 08/05/16 13:27; Admin Dose 20 MG; Start 07/24/16 at 14:00 Ertapenem/Sodium Chloride (Invanz/NS) 100 ml @ 200 mls/hr Q24H IVPB Last administered on 08/05/16 17:03; Admin Dose 200 MLS/HR; Start 07/26/16 at 17:00 Silver Sulfadiazine (Thermazene 1% 25 Gm) 1 applic DAILY TOP Last administered on 08/06/16 08:48; Admin Dose 1 APPLIC; Start 07/26/16 at 17:00 Vitamin A/Vitamin D (Vitamin A & D Oint) 1 applic DAILY PRN TOP DRY MOUTH Last administered on 07/27/16 15:10; Admin Dose 1 APPLIC; Start 07/27/16 at 14:00 Lorazepam 1 mg 1 mg Q4 PRN IV ANXIETY Last administered on 08/05/16 13:38; Admin Dose 1 MG; Start 07/31/16 at 22:00 Vancomycin HCl/ Sodium Chloride (Vancocin/NS) 500 ml @ 125 mls/hr Q24H IVPB Last administered on 08/06/16 05:08; Admin Dose 125 MLS/HR; Start 08/05/16 at 06:00 Buspirone HCl (Buspar) 5 mg BID PO Last administered on 08/06/16 08:40; Admin Dose 5 MG; Start 08/05/16 at 10:00 Trazodone HCl (Desyrel) 50 mg HS PO Last administered on 08/05/16 21:32; Admin Dose 50 MG; Start 08/05/16 at 21:00 JEFF JENKINS NP Aug 06, 2016 12:59
[2016-08-06] MEDS: FAMOTIDINE 20 MG TAB PO SCH (14:53)
[2016-08-06] MEDS ORDERED: TRAZ50TA18 PO (19:46)
[2016-08-06] MEDS ORDERED: BUSP10TA2 PO (19:47)
[2016-08-06 19:48] VITALS: BP 164/74; PULSE 84; RESP 18
[2016-08-06] MEDS: traZODone 50 MG TAB PO SCH (21:33)
[2016-08-06 21:40] VITALS: BP 140/96; PULSE 60
[2016-08-06] MEDS: ZOLPIDEM 5 MG TAB PO PRN (22:30)
[2016-08-07] MEDS: SOD CHLORIDE 0.9% 1,000 ML IV SCH (04:14)
[2016-08-07] MEDS: VANCOMYCIN 1.75 GM in NS 500 ML IVPB SCH (05:26)
[2016-08-07 09:01] VITALS: BP 147/69; RESP 18
[2016-08-07] MEDS: FISH OIL 1,000 MG CAP PO SCH ×2 (09:15→20:17)
[2016-08-07] MEDS: BUSPIRONE 5 MG TAB PO SCH (09:15)
[2016-08-07] MEDS: HEPARIN 5,000 UNIT/0.5 ML SYG SC SCH ×2 (09:28→20:21)
[2016-08-07] MEDS: SILVER SULFADIAZINE 1% 25 GM CR TOP SCH (09:31)
--- NOTE | 2016-08-07 10:14 | PN ---
Date/Time of Note Date/Time of Note DATE: 08/07/16 TIME: 10:10 Assessment/Plan VTE Prophylaxis VTE Prophylaxis Intervention: heparin Lines/Catheters IV Catheter Type (from Nrs): Peripheral IV Urinary Cath still in place: Yes Reason Cath still needed: urinary retention Assessment/Plan Chief Complaint/Hosp Course Assessment/Plan 31F with: 1. Right lower extremity cellulitis, improving, now on vanco only Follow-up podiatry and infectious disease doctor recommendations Status post Multiple percutaneous aspirations of the right dorsal foot and medial ankle, drainage of sanguineous exudate by podiatry. Follow-up culture and sensitivity 2. Acute renal insufficiency,Cr 1.4 -> 1.35 ->1.37 renal has been following - BMP not ordered this AM however - monitor 3. Anion gap metabolic acidosis 07/22 #1 : resolved 4. Morbid obesity BMI 60 5. Dyslipidemia, continue medical management 6. DVP prophylaxis: heparin 7. Hallucinations/anxiety - continue Buspar and Trazadone meds, monitor Disposition when cleared by podiatry. 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 Exam/Review of Systems Vital Signs Vitals Vital Signs Date Time Temp Pulse Resp B/P Pulse Ox O2 Delivery O2 Flow Rate FiO2 08/07/16 09:01 97.6 65 18 147/69 96 08/06/16 19:48 Room Air Intake and Output 08/06/16 08/06/16 08/07/16 15:00 23:00 07:00 Intake Total 500 ml 1800 ml 1280 ml Balance 500 ml 1800 ml 1280 ml Exam General: no acute distress, alert Chest: Normal expansion of the thorax during inspiration Lungs: Clear to auscultation bilaterally Heart: Normal S1-S2, Regular rhythm and rate. Abdomen: Soft , nontender, nondistended , bowel sounds are present. Extremities: Right ankle and foot in Farzad dressing, nonpitting edema no cyanosis Results Result Diagram: 08/06/1652408/06/16524 Medications Medications Current Medications Ondansetron HCl (Zofran Inj) 4 mg Q6H PRN IV NAUSEA AND/OR VOMITING Last administered on 07/27/16 09:06; Admin Dose 4 MG; Start 07/23/16 at 17:00 Acetaminophen (Tylenol Tab) 650 mg Q6H PRN PO PAIN LEVEL 1-3 OR FEVER Last administered on 08/04/16 22:51; Admin Dose 650 MG; Start 07/23/16 at 17:00 Docusate Sodium (Colace) 100 mg Q12H PRN PO CONSTIPATION Last administered on 14:13; Admin Dose 100 MG; Start 07/23/16 at 17:00 Zolpidem Tartrate (Ambien) 5 mg QHS PRN PO SLEEP Last administered on 22:30; Admin Dose 5 MG; Start 07/23/16 at 17:00 Heparin Sodium (Porcine) (Heparin (5000 Units/0.5 ml)) 5,000 unit Q12 SC Last administered on 08/07/16 09:28; Admin Dose 5,000 UNIT; Start 07/23/16 at 21:00 Fish Oil 1000 mg 1,000 mg BID PO Last administered on 08/07/16 09:15; Admin Dose 1,000 MG; Start 07/24/16 at 10:00 Sodium Chloride (NS) 1,000 ml @ 40 mls/hr Q24H IV Last administered on 04:14; Admin Dose 40 MLS/HR; Start 07/24/16 at 10:00 Morphine Sulfate (morphine) 4 mg Q4H PRN IV SEVERE PAIN LEVEL 7-10 Last administered on 08/02/16 22:47; Admin Dose 4 MG; Start 07/24/16 at 13:00 Acetaminophen/ Hydrocodone Bitart ([place] (7.5-325)) 1 tab Q4H PRN PO PAIN LEVEL 4-6 Last administered on 08/06/16 04:09; Admin Dose 1 TAB; Start 07/24/16 at 11:00 Famotidine (Pepcid) 20 mg Q24H PO Last administered on 08/06/16 14:53; Admin Dose 20 MG; Start 07/24/16 at 14:00 Silver Sulfadiazine (Thermazene 1% 25 Gm) 1 applic DAILY TOP Last administered on 08/07/16 09:31; Admin Dose 1 APPLIC; Start 07/26/16 at 17:00 Vitamin A/Vitamin D (Vitamin A & D Oint) 1 applic DAILY PRN TOP DRY MOUTH Last administered on 07/27/16 15:10; Admin Dose 1 APPLIC; Start 07/27/16 at 14:00 Lorazepam 1 mg 1 mg Q4 PRN IV ANXIETY Last administered on 08/05/16 13:38; Admin Dose 1 MG; Start 07/31/16 at 22:00 Vancomycin HCl/ Sodium Chloride (Vancocin/NS) 500 ml @ 125 mls/hr Q24H IVPB Last administered on 08/07/16 05:26; Admin Dose 125 MLS/HR; Start 08/05/16 at 06:00 Buspirone HCl (Buspar) 5 mg BID PO Last administered on 08/07/16 09:15; Admin Dose 5 MG; Start 08/05/16 at 10:00 Trazodone HCl (Desyrel) 50 mg HS PO Last administered on 08/06/16 21:33; Admin Dose 50 MG; Start 08/05/16 at 21:00 Miscellaneous Information 08/07 07AM: RN GAVE TO... BID@ XX ; Start 08/07 at 10:00 RYAN BROWN Aug 07, 2016 10:14
--- NOTE | 2016-08-07 10:23 | CONS ---
Date/Time of Note Date/Time of Note DATE: 08/07/16 TIME: 10:22 Consult Date/Type/Reason Admit Date/Time Jul 23, 2016 at 15:05 Initial Consult Date 07/24/16 Type of Consultation: ID Subjective The patient is stable, no acute events overnight, fevers, chills, nausea, vomiting. Able tolerate pt. reported some hallucinations. OBJECTIVE: HEENT: Head is normocephalic. NECK: Supple. HEART: Regular rate. LUNGS: Show diminished breath sounds at the base. ABDOMEN: Soft, nontender to palpation, no rebound or guarding. EXTREMITIES: Negative for clubbing, cyanosis, or edema on the left leg. Right lower extremity has dressing clean, dry, and intact. DERMATOLOGIC: No rashes. MUSCULOSKELETAL: No joint effusions. NEUROLOGIC: No change in exam. MEDICATIONS: The patient's medications have been reviewed. Objective Vital Signs Date Time Temp Pulse Resp B/P Pulse Ox O2 Delivery O2 Flow Rate FiO2 08/07/16 09:01 97.6 65 18 147/69 96 08/06/16 19:48 Room Air Intake and Output 08/06/16 08/06/16 08/07/16 15:00 23:00 07:00 Intake Total 500 ml 1800 ml 1280 ml Balance 500 ml 1800 ml 1280 ml Results/Medications Result Diagram: 08/06/16 0525 08/06/1625 Medications Current Medications Ondansetron HCl (Zofran Inj) 4 mg Q6H PRN IV NAUSEA AND/OR VOMITING Last administered on 07/27/16 09:06; Admin Dose 4 MG; Start 07/23/16 at 17:00 Acetaminophen (Tylenol Tab) 650 mg Q6H PRN PO PAIN LEVEL 1-3 OR FEVER Last administered on 08/04/16 22:51; Admin Dose 650 MG; Start 07/23/16 at 17:00 Docusate Sodium (Colace) 100 mg Q12H PRN PO CONSTIPATION Last administered on 14:13; Admin Dose 100 MG; Start 07/23/16 at 17:00 Zolpidem Tartrate (Ambien) 5 mg QHS PRN PO SLEEP Last administered on 22:30; Admin Dose 5 MG; Start 07/23/16 at 17:00 Heparin Sodium (Porcine) (Heparin (5000 Units/0.5 ml)) 5,000 unit Q12 SC Last administered on 08/07/16 09:28; Admin Dose 5,000 UNIT; Start 07/23/16 at 21:00 Fish Oil 1000 mg 1,000 mg BID PO Last administered on 08/07/16 09:15; Admin Dose 1,000 MG; Start 07/24/16 at 10:00 Sodium Chloride (NS) 1,000 ml @ 40 mls/hr Q24H IV Last administered on 04:14; Admin Dose 40 MLS/HR; Start 07/24/16 at 10:00 Morphine Sulfate (morphine) 4 mg Q4H PRN IV SEVERE PAIN LEVEL 7-10 Last administered on 08/02/16 22:47; Admin Dose 4 MG; Start 07/24/16 at 13:00 Acetaminophen/ Hydrocodone Bitart ([place] (7.5-325)) 1 tab Q4H PRN PO PAIN LEVEL 4-6 Last administered on 08/06/16 04:09; Admin Dose 1 TAB; Start 07/24/16 at 11:00 Famotidine (Pepcid) 20 mg Q24H PO Last administered on 08/06/16 14:53; Admin Dose 20 MG; Start 07/24/16 at 14:00 Silver Sulfadiazine (Thermazene 1% 25 Gm) 1 applic DAILY TOP Last administered on 08/07/16 09:31; Admin Dose 1 APPLIC; Start 07/26/16 at 17:00 Vitamin A/Vitamin D (Vitamin A & D Oint) 1 applic DAILY PRN TOP DRY MOUTH Last administered on 07/27/16 15:10; Admin Dose 1 APPLIC; Start 07/27/16 at 14:00 Lorazepam 1 mg 1 mg Q4 PRN IV ANXIETY Last administered on 08/05/16 13:38; Admin Dose 1 MG; Start 07/31/16 at 22:00 Vancomycin HCl/ Sodium Chloride (Vancocin/NS) 500 ml @ 125 mls/hr Q24H IVPB Last administered on 08/07/16 05:26; Admin Dose 125 MLS/HR; Start 08/05/16 at 06:00 Buspirone HCl (Buspar) 5 mg BID PO Last administered on 2/18/17at 09:15; Admin Dose 5 MG; Start 08/05/16 at 10:00 Trazodone HCl (Desyrel) 50 mg HS PO Last administered on 08/06/16t 21:33; Admin Dose 50 MG; Start 08/05/16 at 21:00 Miscellaneous Information 08/07 07AM: RN GAVE TO... BID@10,16 XX ; Start 08/07 at 10:00 Assessment/Plan Chief Complaint/Hosp Course 1. Nonoliguric acute kidney injury with unknown baseline creatinine. Etiology of acute kidney injury is secondary to acute tubular necrosis and septic acute kidney injury. Renal function appears to have stabilized from creatinine of 1.2 to 1.4 mg/dL. Continue current treatment plan, supportive care, renally dose all meds, avoid nephrotoxins. 2. Anemia. Continue to monitor hemoglobin and hematocrit levels. 3. Metabolic disorder. Continue to monitor calcium, phosphorus levels. 4. Lower extremity cellulitis. The patient is status post incision and drainage, status post drainage. Continue wound care. Continue antibiotics. Follow up with podiatry and infectious disease. 5. Morbid obesity. Continue dietary modification. Problems: ANTHONY MASSEY MD Aug 07, 2016 10:23
[2016-08-07] MEDS: LORAZEPAM 2 MG INJ IV PRN (14:02)
[2016-08-07] MEDS: FAMOTIDINE 20 MG TAB PO SCH (14:04)
[2016-08-07] MEDS ORDERED: ZOLPIDEM 5 MG TAB PO PRN ×2 (16:30)
[2016-08-07] MEDS ORDERED: morphine 2 MG INJ IV PRN (17:00)
--- NOTE | 2016-08-07 19:55 | CONS ---
Date/Time of Note Date/Time of Note DATE: 08/07/16 TIME: 19:54 Assessment/Plan Assessment/Plan Chief Complaint/Hosp Course SUBJECTIVE: No acute changes. Sitting up in a chair, looks comfortable ANTIMICROBIALS: Vancomycin, Invanz. OBJECTIVE: GENERAL: This is a morbidly obese, well-developed, middle-aged white woman in no distress. HEENT: Head atraumatic, normocephalic. Sclerae anicteric. Buccal mucosa pink. NECK: Obese. CHEST: Rise symmetrical. Breath sounds clear. HEART: S1, S2. ABDOMEN: Soft, bowel tones present. EXTREMITIES: With right lower extremity edema and dressing intact. ASSESSMENT: 1. Right lower extremity cellulitis. 2. Morbid obesity. 3. Systemic inflammatory response syndrome with low grade fevers and leukocytosis. 4. Acute kidney injury, possible chronic kidney disease. 5. SIRS 2 to #1 PLAN: Stable, RLE edema persists, will continue Vancomycin, continue LE elevation, podiatry rec-s DW patient Problems: Consultation Date/Type/Reason Admit Date/Time Jul 23, 2016 at 15:05 Initial Consult Date 07/24/16 Type of Consultation: ID Exam/Review of Systems Vital Signs Vitals Vital Signs Date Time Temp Pulse Resp B/P Pulse Ox O2 Delivery O2 Flow Rate FiO2 08/07/16 09:01 97.6 65 18 147/69 96 08/06/16 19:48 Room Air Intake and Output 08/06/16 08/06/16 08/07/16 15:00 23:00 07:00 Intake Total 500 ml 1800 ml 1280 ml Balance 500 ml 1800 ml 1280 ml Results Result Diagram: 08/06/16 0525 08/06/16 0525 Medications Medications Current Medications Ondansetron HCl (Zofran Inj) 4 mg Q6H PRN IV NAUSEA AND/OR VOMITING Last administered on 07/27/16 09:06; Admin Dose 4 MG; Start 07/23/16 at 17:00 Acetaminophen (Tylenol Tab) 650 mg Q6H PRN PO PAIN LEVEL 1-3 OR FEVER Last administered on 08/04/16 22:51; Admin Dose 650 MG; Start 07/23/16 at 17:00 Docusate Sodium (Colace) 100 mg Q12H PRN PO CONSTIPATION Last administered on 14:13; Admin Dose 100 MG; Start 07/23/16 at 17:00 Heparin Sodium (Porcine) (Heparin (5000 Units/0.5 ml)) 5,000 unit Q12 SC Last administered on 08/07/16 09:28; Admin Dose 5,000 UNIT; Start 07/23/16 at 21:00 Fish Oil 1000 mg 1,000 mg BID PO Last administered on 08/07/16 09:15; Admin Dose 1,000 MG; Start 07/24/16 at 10:00 Sodium Chloride (NS) 1,000 ml @ 40 mls/hr Q24H IV Last administered on 04:14; Admin Dose 40 MLS/HR; Start 07/24/16 at 10:00 Acetaminophen/ Hydrocodone Bitart ([place] (7.5-325)) 1 tab Q4H PRN PO PAIN LEVEL 4-6 Last administered on 08/06/16 04:09; Admin Dose 1 TAB; Start 07/24/16 at 11:00 Famotidine (Pepcid) 20 mg Q24H PO Last administered on 08/07/16 14:04; Admin Dose 20 MG; Start 07/24/16 at 14:00 Silver Sulfadiazine (Thermazene 1% 25 Gm) 1 applic DAILY TOP Last administered on 08/07/16 09:31; Admin Dose 1 APPLIC; Start 07/26/16 at 17:00 Vitamin A/Vitamin D (Vitamin A & D Oint) 1 applic DAILY PRN TOP DRY MOUTH Last administered on 07/27/16 15:10; Admin Dose 1 APPLIC; Start 07/27/16 at 14:00 Lorazepam 1 mg 1 mg Q4 PRN IV ANXIETY Last administered on 08/07/16 14:02; Admin Dose 1 MG; Start 07/31/16 at 22:00 Vancomycin HCl/ Sodium Chloride (Vancocin/NS) 500 ml @ 125 mls/hr Q24H IVPB Last administered on 08/07/16 05:26; Admin Dose 125 MLS/HR; Start 08/05/16 at 06:00 Miscellaneous Information 08/07 07AM: RN GAVE TO... BID@10,16 XX ; Start 08/07 at 10:00 Miscellaneous Information (*Rx Drug Level Order Reminder*) VANCOMYCIN TROUGH 2/ 19 AT 0500 ONCE ONCE XX ; Start 08/08/16 at 05:00; Stop 08/08/16 at 05:01 Buspirone HCl (Buspar) 10 mg TID PO ; Start 08/07/16 at 21:00 Trazodone HCl (Desyrel) 100 mg HS PO ; Start 08/07/16 at 21:00 Morphine Sulfate (morphine) 2 mg Q4H PRN IV SEVERE PAIN LEVEL 7-10; Start 08/07 at 17:00 Zolpidem Tartrate (Ambien) 5 mg QHS PRN PO SLEEP; Start 08/07/16 at 16:30 JEFF JENKINS NP Aug 07, 2016 19:55
[2016-08-07] MEDS: traZODone 100 MG TAB PO SCH (20:17)
[2016-08-07] MEDS: BUSPIRONE 10 MG TAB PO SCH (20:17)
[2016-08-07 21:01] VITALS: BP 148/63; RESP 21
[2016-08-07] MEDS: HYDROCODONE/APAP (7.5/325) TAB PO PRN (22:06)
[2016-08-08] MEDS: SOD CHLORIDE 0.9% 1,000 ML IV SCH (03:46)
[2016-08-08 05:57] LABS: POTASSIUM 4.1 mmol/L (3.5-5.1)
[2016-08-08 06:00] LABS: CREATININE 1.25 mg/dl (0.44-1.00)
[2016-08-08 06:01] LABS: CALCIUM 7.9 mg/dl (8.4-10.2)
[2016-08-08] MEDS: VANCOMYCIN 1.75 GM in NS 500 ML IVPB SCH (06:48)
[2016-08-08 07:50] LABS: PHOSPHORUS 4.6 mg/dl (2.5-4.9)
[2016-08-08 08:10] VITALS: BP 129/94; PULSE 71; RESP 18
[2016-08-08 08:27] LABS: BASOPHIL # 0.1 10^3/ul (0.0-0.1); BASOPHILS % 2.9 % (0.0-2.0); EOSINOPHILS # 0.1 10^3/ul (0.0-0.5); EOSINOPHILS % 1.2 % (0.0-7.0); HEMATOCRIT 28.9 % (37.0-47.0); HEMOGLOBIN 9.8 g/dl (12.0-16.0); LYMPHOCYTES # 1.6 10^3/ul (0.8-2.9); MEAN CORPUSCULAR HEMOGLOBIN 30.1 pg (29.0-33.0); MEAN CORPUSCULAR HGB CONC 33.7 g/dl (32.0-37.0); MEAN CORPUSCULAR VOLUME 89.1 fl (82.0-101.0); MEAN PLATELET VOLUME 8.1 fl (7.4-10.4); MONOCYTE # 0.5 10^3/ul (0.3-0.9); MONOCYTES % 10.7 % (0.0-11.0); NEUTROPHIL # 2.2 10^3/ul (1.6-7.5); NEUTROPHILS % 49.2 % (39.0-77.0); PLATELET COUNT 412 10^3/UL (140-440); RED BLOOD COUNT 3.24 10^6/ul (4.20-5.40); RED CELL DISTRIBUTION WIDTH 15.7 % (11.5-14.5); UNCORRECTED WBC 4.4 10^3/ul (4.8-10.8); WHITE BLOOD COUNT 4.4 10^3/ul (4.8-10.8)
[2016-08-08 08:41] LABS: CONDITION 1; LH ANALYZER COMMENTS 1
[2016-08-08] MEDS: FISH OIL 1,000 MG CAP PO SCH ×2 (09:35→20:37)
[2016-08-08] MEDS: BUSPIRONE 10 MG TAB PO SCH ×3 (09:35→20:37)
[2016-08-08] MEDS: HEPARIN 5,000 UNIT/0.5 ML SYG SC SCH ×2 (09:50→21:57)
[2016-08-08] MEDS: SILVER SULFADIAZINE 1% 25 GM CR TOP SCH (09:51)
--- NOTE | 2016-08-08 10:32 | PN ---
Date/Time of Note Date/Time of Note DATE: 08/08/16 TIME: 10:32 Assessment/Plan VTE Prophylaxis VTE Prophylaxis Intervention: heparin Lines/Catheters IV Catheter Type (from Nrs): Peripheral IV Urinary Cath still in place: Yes Reason Cath still needed: urinary retention Assessment/Plan Chief Complaint/Hosp Course Assessment/Plan 31F with: 1. Right lower extremity cellulitis, improving, now on vanco only Follow-up podiatry and infectious disease doctor recommendations Status post Multiple percutaneous aspirations of the right dorsal foot and medial ankle, drainage of sanguineous exudate by podiatry. Follow-up culture and sensitivity 2. Acute renal insufficiency,Cr 1.4 -> 1.35 ->1.37-> 1.25 renal has been following - monitor 3. Anion gap metabolic acidosis 2/ #1 : resolved 4. Morbid obesity BMI 60 5. Dyslipidemia, continue medical management 6. DVP prophylaxis: heparin 7. Hallucinations/anxiety - have lowered dose of morphine (SE?) - continue Buspar and Trazadone meds, monitor Disposition when cleared by podiatry. 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 Exam/Review of Systems Vital Signs Vitals Vital Signs Date Time Temp Pulse Resp B/P Pulse Ox O2 Delivery O2 Flow Rate FiO2 08/08/16 08:10 97.5 71 18 129/94 96 Room Air Intake and Output 08/07/16 08/07/16 08/08/16 15:00 23:00 07:00 Intake Total 500 ml 1400 ml 980 ml Output Total 0 ml Balance 500 ml 1400 ml 980 ml Exam General: no acute distress, alert Chest: Normal expansion of the thorax during inspiration Lungs: Clear to auscultation bilaterally Heart: Normal S1-S2, Regular rhythm and rate. Abdomen: Soft , nontender, nondistended , bowel sounds are present. Extremities: Right ankle and foot in [place]zad dressing, nonpitting edema no cyanosis Results Result Diagram: 08/08/16 0729 08/08/16 0502 Results 24 hrs Laboratory Tests Test 08/08/16 05:02 08/08/16 07:29 Anion Gap 16 Blood Urea Nitrogen 19 Calcium Level 7.9 L Carbon Dioxide Level 18 L Chloride Level 111 H Creatinine 1.25 H Glucose Level 76 Magnesium Level 2.0 Phosphorus Level 4.6 Potassium Level 4.1 Sodium Level 141 Vancomycin Level Trough 14.6 Basophils # 0.1 Basophils % 2.9 H Blood Morphology Comment Eosinophils # 0.1 Eosinophils % 1.2 Hematocrit 28.9 L Hemoglobin 9.8 L Lymphocytes # 1.6 Lymphocytes % 36.0 Mean Corpuscular Hemoglobin 30.1 Mean Corpuscular Hemoglobin Concent 33.7 Mean Corpuscular Volume 89.1 Mean Platelet Volume 8.1 Monocytes # 0.5 Monocytes % 10.7 Neutrophils # 2.2 Neutrophils % 49.2 Nucleated Red Blood Cells # 0.0 Nucleated Red Blood Cells % 0.0 Platelet Count 412 Red Blood Count 3.24 L Red Cell Distribution Width 15.7 H White Blood Count 4.4 #L Medications Medications Current Medications Ondansetron HCl (Zofran Inj) 4 mg Q6H PRN IV NAUSEA AND/OR VOMITING Last administered on 07/27/16 09:06; Admin Dose 4 MG; Start 07/23/16 at 17:00 Acetaminophen (Tylenol Tab) 650 mg Q6H PRN PO PAIN LEVEL 1-3 OR FEVER Last administered on 08/04/16 22:51; Admin Dose 650 MG; Start 07/23/16 at 17:00 Docusate Sodium (Colace) 100 mg Q12H PRN PO CONSTIPATION Last administered on 14:13; Admin Dose 100 MG; Start 07/23/16 at 17:00 Heparin Sodium (Porcine) (Heparin (5000 Units/0.5 ml)) 5,000 unit Q12 SC Last administered on 08/08/16 09:50; Admin Dose 5,000 UNIT; Start 07/23/16 at 21:00 Fish Oil 1000 mg 1,000 mg BID PO Last administered on 08/08/16 09:35; Admin Dose 1,000 MG; Start 07/24/16 at 10:00 Sodium Chloride (NS) 1,000 ml @ 40 mls/hr Q24H IV Last administered on 04:14; Admin Dose 40 MLS/HR; Start 07/24/16 at 10:00 Acetaminophen/ Hydrocodone Bitart ([place] (7.5-325)) 1 tab Q4H PRN PO PAIN LEVEL 4-6 Last administered on 08/07/16 22:06; Admin Dose 1 TAB; Start 07/24/16 at 11:00 Famotidine (Pepcid) 20 mg Q24H PO Last administered on 08/07/16 14:04; Admin Dose 20 MG; Start 07/24/16 at 14:00 Silver Sulfadiazine (Thermazene 1% 25 Gm) 1 applic DAILY TOP Last administered on 08/08/16 09:51; Admin Dose 1 APPLIC; Start 07/26/16 at 17:00 Vitamin A/Vitamin D (Vitamin A & D Oint) 1 applic DAILY PRN TOP DRY MOUTH Last administered on 07/27/16 15:10; Admin Dose 1 APPLIC; Start 07/27/16 at 14:00 Lorazepam 1 mg 1 mg Q4 PRN IV ANXIETY Last administered on 08/07/16 14:02; Admin Dose 1 MG; Start 07/31/16 at 22:00 Vancomycin HCl/ Sodium Chloride (Vancocin/NS) 500 ml @ 125 mls/hr Q24H IVPB Last administered on 08/08/16 06:48; Admin Dose 125 MLS/HR; Start 08/05/16 at 06:00 Miscellaneous Information 08/07 07AM: RN GAVE TO... BID@10,16 XX ; Start 08/07 at 10:00 Buspirone HCl (Buspar) 10 mg TID PO Last administered on 08/08/16 09:35; Admin Dose 10 MG; Start 08/07/16 at 21:00 Trazodone HCl (Desyrel) 100 mg HS PO Last administered on 08/07/16 20:17; Admin Dose 100 MG; Start 08/07/16 at 21:00 Morphine Sulfate (morphine) 2 mg Q4H PRN IV SEVERE PAIN LEVEL 7-10; Start 08/07 at 17:00 Zolpidem Tartrate (Ambien) 5 mg QHS PRN PO SLEEP; Start 08/07/16 at 16:30 RYAN BROWN Aug 08, 2016 10:32
--- NOTE | 2016-08-08 11:13 | CONS ---
Date/Time of Note Date/Time of Note DATE: 08/08/16 TIME: 11:10 Consult Date/Type/Reason Admit Date/Time Jul 23, 2016 at 15:05 Initial Consult Date 07/24/16 Type of Consultation: ID Subjective The patient is stable, no acute events overnight, fevers, chills, nausea, vomiting. Able tolerate pt. reported some hallucinations. OBJECTIVE: HEENT: Head is normocephalic. NECK: Supple. HEART: Regular rate. LUNGS: Show diminished breath sounds at the base. ABDOMEN: Soft, nontender to palpation, no rebound or guarding. EXTREMITIES: Negative for clubbing, cyanosis, or edema on the left leg. Right lower extremity has dressing clean, dry, and intact. DERMATOLOGIC: No rashes. MUSCULOSKELETAL: No joint effusions. NEUROLOGIC: No change in exam. MEDICATIONS: The patient's medications have been reviewed. Objective Vital Signs Date Time Temp Pulse Resp B/P Pulse Ox O2 Delivery O2 Flow Rate FiO2 08/08/16 08:10 97.5 71 18 129/94 96 Room Air Intake and Output 08/07/16 08/07/16 08/08/16 15:00 23:00 07:00 Intake Total 500 ml 1400 ml 980 ml Output Total 0 ml Balance 500 ml 1400 ml 980 ml Results/Medications Result Diagram: 08/08/16 0729 08/08/16 0502 Results 24 hrs Laboratory Tests Test 08/08/16 05:02 08/08/16 07:29 Anion Gap 16 Blood Urea Nitrogen 19 Calcium Level 7.9 L Carbon Dioxide Level 18 L Chloride Level 111 H Creatinine 1.25 H Glucose Level 76 Magnesium Level 2.0 Phosphorus Level 4.6 Potassium Level 4.1 Sodium Level 141 Vancomycin Level Trough 14.6 Basophils # 0.1 Basophils % 2.9 H Blood Morphology Comment Eosinophils # 0.1 Eosinophils % 1.2 Hematocrit 28.9 L Hemoglobin 9.8 L Lymphocytes # 1.6 Lymphocytes % 36.0 Mean Corpuscular Hemoglobin 30.1 Mean Corpuscular Hemoglobin Concent 33.7 Mean Corpuscular Volume 89.1 Mean Platelet Volume 8.1 Monocytes # 0.5 Monocytes % 10.7 Neutrophils # 2.2 Neutrophils % 49.2 Nucleated Red Blood Cells # 0.0 Nucleated Red Blood Cells % 0.0 Platelet Count 412 Red Blood Count 3.24 L Red Cell Distribution Width 15.7 H White Blood Count 4.4 #L Medications Current Medications Ondansetron HCl (Zofran Inj) 4 mg Q6H PRN IV NAUSEA AND/OR VOMITING Last administered on 07/27/16 09:06; Admin Dose 4 MG; Start 07/23/16 at 17:00 Acetaminophen (Tylenol Tab) 650 mg Q6H PRN PO PAIN LEVEL 1-3 OR FEVER Last administered on 08/04/16 22:51; Admin Dose 650 MG; Start 07/23/16 at 17:00 Docusate Sodium (Colace) 100 mg Q12H PRN PO CONSTIPATION Last administered on 14:13; Admin Dose 100 MG; Start 07/23/16 at 17:00 Heparin Sodium (Porcine) (Heparin (5000 Units/0.5 ml)) 5,000 unit Q12 SC Last administered on 08/08/16 09:50; Admin Dose 5,000 UNIT; Start 07/23/16 at 21:00 Fish Oil 1000 mg 1,000 mg BID PO Last administered on 08/08/16 09:35; Admin Dose 1,000 MG; Start 07/24/16 at 10:00 Sodium Chloride (NS) 1,000 ml @ 40 mls/hr Q24H IV Last administered on 04:14; Admin Dose 40 MLS/HR; Start 07/24/16 at 10:00 Acetaminophen/ Hydrocodone Bitart ([place] (7.5-325)) 1 tab Q4H PRN PO PAIN LEVEL 4-6 Last administered on 08/07/16 22:06; Admin Dose 1 TAB; Start 07/24/16 at 11:00 Famotidine (Pepcid) 20 mg Q24H PO Last administered on 08/07/16 14:04; Admin Dose 20 MG; Start 07/24/16 at 14:00 Silver Sulfadiazine (Thermazene 1% 25 Gm) 1 applic DAILY TOP Last administered on 08/08/16 09:51; Admin Dose 1 APPLIC; Start 07/26/16 at 17:00 Vitamin A/Vitamin D (Vitamin A & D Oint) 1 applic DAILY PRN TOP DRY MOUTH Last administered on 07/27/16 15:10; Admin Dose 1 APPLIC; Start 07/27/16 at 14:00 Lorazepam (Ativan) 1 mg Q4 PRN IV ANXIETY Last administered on 08/07/16 14:02 ; Admin Dose 1 MG; Start 07/31/16 at 22:00 Miscellaneous Information 08/07 07AM: RN GAVE TO... BID@10,16 XX ; Start 08/07 at 10:00 Buspirone HCl (Buspar) 10 mg TID PO Last administered on 08/08/16 09:35; Admin Dose 10 MG; Start 08/07/16 at 21:00 Trazodone HCl (Desyrel) 100 mg HS PO Last administered on 08/07/16 20:17; Admin Dose 100 MG; Start 08/07/16 at 21:00 Morphine Sulfate (morphine) 2 mg Q4H PRN IV SEVERE PAIN LEVEL 7-10; Start 08/07 at 17:00 Zolpidem Tartrate 5 mg 5 mg QHS PRN PO SLEEP; Start 08/07/16 at 16:30 Vancomycin HCl/ Sodium Chloride (Vancocin/NS) 250 ml @ 83.333 mls/ hr Q24H IVPB ; Start 08/09/16 at 06:00 Assessment/Plan Chief Complaint/Hosp Course 1. Nonoliguric acute kidney injury with unknown baseline creatinine. Etiology of acute kidney injury is secondary to acute tubular necrosis and septic acute kidney injury. Renal function appears to have stabilized from creatinine of 1.2 to 1.4 mg/dL. Continue current treatment plan, supportive care, renally dose all meds, avoid nephrotoxins. 2. Anemia. Continue to monitor hemoglobin and hematocrit levels. 3. Metabolic disorder. Continue to monitor calcium, phosphorus levels. 4. Lower extremity cellulitis. The patient is status post incision and drainage, status post drainage. Continue wound care. Continue antibiotics. Follow up with podiatry and infectious disease. 5. Morbid obesity. Continue dietary modification. Problems: ANTHONY MASSEY MD Aug 08, 2016 11:13
[2016-08-08] MEDS: FAMOTIDINE 20 MG TAB PO SCH (13:59)
--- NOTE | 2016-08-08 18:32 | CONS ---
Date/Time of Note Date/Time of Note DATE: 08/08/16 TIME: 18:31 Assessment/Plan Assessment/Plan Chief Complaint/Hosp Course SUBJECTIVE: No acute changes. Alert, looks comfortable, feels good ANTIMICROBIALS: Vancomycin OBJECTIVE: GENERAL: This is a morbidly obese, well-developed, middle-aged white woman in no distress. HEENT: Head atraumatic, normocephalic. Sclerae anicteric. Buccal mucosa pink. NECK: Obese. CHEST: Rise symmetrical. Breath sounds clear. HEART: S1, S2. ABDOMEN: Soft, bowel tones present. EXTREMITIES: With right lower extremity edema and dressing intact. ASSESSMENT: 1. Right lower extremity cellulitis. 2. Morbid obesity. 3. Systemic inflammatory response syndrome with low grade fevers and leukocytosis. 4. Acute kidney injury, possible chronic kidney disease. 5. SIRS 2 to #1 PLAN: Stable, RLE edema improving, continue abx/ LE elevation, podiatry rec-s DW patient Problems: Consultation Date/Type/Reason Admit Date/Time Jul 23, 2016 at 15:05 Initial Consult Date 07/24/16 Type of Consultation: ID Exam/Review of Systems Vital Signs Vitals Vital Signs Date Time Temp Pulse Resp B/P Pulse Ox O2 Delivery O2 Flow Rate FiO2 08/08/16 08:10 97.5 71 18 129/94 96 Room Air Intake and Output 08/07/16 08/07/16 08/08/16 15:00 23:00 07:00 Intake Total 500 ml 1400 ml 980 ml Output Total 0 ml Balance 500 ml 1400 ml 980 ml Results Result Diagram: 08/08/16 0729 08/08/16 0502 Results 24 hrs Laboratory Tests Test 08/08/16 05:02 08/08/16 07:29 Anion Gap 16 Blood Urea Nitrogen 19 Calcium Level 7.9 L Carbon Dioxide Level 18 L Chloride Level 111 H Creatinine 1.25 H Glucose Level 76 Magnesium Level 2.0 Phosphorus Level 4.6 Potassium Level 4.1 Sodium Level 141 Vancomycin Level Trough 14.6 Basophils # 0.1 Basophils % 2.9 H Blood Morphology Comment Eosinophils # 0.1 Eosinophils % 1.2 Hematocrit 28.9 L Hemoglobin 9.8 L Lymphocytes # 1.6 Lymphocytes % 36.0 Mean Corpuscular Hemoglobin 30.1 Mean Corpuscular Hemoglobin Concent 33.7 Mean Corpuscular Volume 89.1 Mean Platelet Volume 8.1 Monocytes # 0.5 Monocytes % 10.7 Neutrophils # 2.2 Neutrophils % 49.2 Nucleated Red Blood Cells # 0.0 Nucleated Red Blood Cells % 0.0 Platelet Count 412 Red Blood Count 3.24 L Red Cell Distribution Width 15.7 H White Blood Count 4.4 #L Medications Medications Current Medications Ondansetron HCl (Zofran Inj) 4 mg Q6H PRN IV NAUSEA AND/OR VOMITING Last administered on 07/27/16 09:06; Admin Dose 4 MG; Start 07/23/16 at 17:00 Acetaminophen (Tylenol Tab) 650 mg Q6H PRN PO PAIN LEVEL 1-3 OR FEVER Last administered on 08/04/16 22:51; Admin Dose 650 MG; Start 07/23/16 at 17:00 Docusate Sodium (Colace) 100 mg Q12H PRN PO CONSTIPATION Last administered on 14:13; Admin Dose 100 MG; Start 07/23/16 at 17:00 Heparin Sodium (Porcine) (Heparin (5000 Units/0.5 ml)) 5,000 unit Q12 SC Last administered on 08/08/16 09:50; Admin Dose 5,000 UNIT; Start 07/23/16 at 21:00 Fish Oil 1000 mg 1,000 mg BID PO Last administered on 08/08/16 09:35; Admin Dose 1,000 MG; Start 07/24/16 at 10:00 Sodium Chloride (NS) 1,000 ml @ 40 mls/hr Q24H IV Last administered on 04:14; Admin Dose 40 MLS/HR; Start 07/24/16 at 10:00 Acetaminophen/ Hydrocodone Bitart ([place] (7.5-325)) 1 tab Q4H PRN PO PAIN LEVEL 4-6 Last administered on 08/07/16 22:06; Admin Dose 1 TAB; Start 07/24/16 at 11:00 Famotidine (Pepcid) 20 mg Q24H PO Last administered on 08/08/16 13:59; Admin Dose 20 MG; Start 07/24/16 at 14:00 Silver Sulfadiazine (Thermazene 1% 25 Gm) 1 applic DAILY TOP Last administered on 08/08/16 09:51; Admin Dose 1 APPLIC; Start 07/26/16 at 17:00 Vitamin A/Vitamin D (Vitamin A & D Oint) 1 applic DAILY PRN TOP DRY MOUTH Last administered on 07/27/16 15:10; Admin Dose 1 APPLIC; Start 07/27/16 at 14:00 Lorazepam (Ativan) 1 mg Q4 PRN IV ANXIETY Last administered on 08/07/16 14:02 ; Admin Dose 1 MG; Start 07/31/16 at 22:00 Miscellaneous Information 08/07 07AM: RN GAVE TO... BID@10,16 XX ; Start 08/07 at 10:00 Buspirone HCl (Buspar) 10 mg TID PO Last administered on 08/08/16 13:59; Admin Dose 10 MG; Start 08/07/16 at 21:00 Trazodone HCl (Desyrel) 100 mg HS PO Last administered on 08/07/16 20:17; Admin Dose 100 MG; Start 08/07/16 at 21:00 Morphine Sulfate (morphine) 2 mg Q4H PRN IV SEVERE PAIN LEVEL 7-10; Start 08/07 at 17:00 Zolpidem Tartrate 5 mg 5 mg QHS PRN PO SLEEP; Start 08/07/16 at 16:30 Vancomycin HCl/ Sodium Chloride (Vancocin/NS) 250 ml @ 83.333 mls/ hr Q24H IVPB ; Start 08/09/16 at 06:00 JEFF JENKINS NP Aug 08, 2016 18:32
[2016-08-08 20:00] VITALS: BP 140/73; PULSE 72; RESP 18
[2016-08-08 20:07] VITALS: BP 102/54; RESP 20
[2016-08-08] MEDS: traZODone 100 MG TAB PO SCH (20:37)
[2016-08-09] MEDS: SOD CHLORIDE 0.9% 1,000 ML IV SCH (00:50)
[2016-08-09] MEDS: VANCOMYCIN 1.5 GM in SOD CHLORIDE 0.9% 250 ML IVPB SCH (05:33)
[2016-08-09 07:37] LABS: BASOPHIL # 0.1 10^3/ul (0.0-0.1); BASOPHILS % 2.5 % (0.0-2.0); EOSINOPHILS # 0.1 10^3/ul (0.0-0.5); EOSINOPHILS % 1.9 % (0.0-7.0); HEMATOCRIT 29.3 % (37.0-47.0); HEMOGLOBIN 9.9 g/dl (12.0-16.0); LYMPHOCYTES # 2.3 10^3/ul (0.8-2.9); LYMPHOCYTES % 40.3 % (15.0-51.0); MEAN CORPUSCULAR HEMOGLOBIN 29.8 pg (29.0-33.0); MEAN CORPUSCULAR HGB CONC 33.9 g/dl (32.0-37.0); MONOCYTE # 0.4 10^3/ul (0.3-0.9); MONOCYTES % 7.9 % (0.0-11.0); NEUTROPHIL # 2.7 10^3/ul (1.6-7.5); NEUTROPHILS % 47.4 % (39.0-77.0); PLATELET COUNT 407 10^3/UL (140-440); RED BLOOD COUNT 3.33 10^6/ul (4.20-5.40); RED CELL DISTRIBUTION WIDTH 15.1 % (11.5-14.5); UNCORRECTED WBC 5.6 10^3/ul (4.8-10.8); WHITE BLOOD COUNT 5.6 10^3/ul (4.8-10.8)
[2016-08-09 07:42] LABS: CONDITION 1; LH ANALYZER COMMENTS 1
[2016-08-09 07:53] LABS: CREATININE 1.28 mg/dl (0.44-1.00)
[2016-08-09 07:54] LABS: CALCIUM 7.9 mg/dl (8.4-10.2)
[2016-08-09 08:20] VITALS: BP 144/79; RESP 18
[2016-08-09] MEDS: BUSPIRONE 10 MG TAB PO SCH ×3 (08:30→21:47)
[2016-08-09] MEDS: FISH OIL 1,000 MG CAP PO SCH ×2 (08:30→21:47)
[2016-08-09] MEDS: SILVER SULFADIAZINE 1% 25 GM CR TOP SCH (08:31)
[2016-08-09] MEDS: HEPARIN 5,000 UNIT/0.5 ML SYG SC SCH ×2 (09:00→21:51)
--- NOTE | 2016-08-09 12:31 | PN ---
DATE: SUBJECTIVE: The patient is stable, no acute events overnight. No fevers, chills, nausea, vomiting. No shortness of breath. OBJECTIVE: VITAL SIGNS: Blood pressure 144/79, respirations 18, pulse 72, temperature is 98.2. HEENT: Head is normocephalic. NECK: Supple. HEART: Regular rate. LUNGS: Show diminished breath sounds at base. ABDOMEN: Soft, nontender to palpation, no rebound or guarding. EXTREMITIES: Negative for clubbing, cyanosis. No edema in the left leg. Right lower extremity wra pped in dressing, clean, dry, intact. DERMATOLOGIC: No rashes. MUSCULOSKELETAL: No joint effusions. NEUROLOGIC: No change in exam. MEDICATIONS: The patient's medications were reviewed. LABORATORY DATA: Shows sodium 142, potassium 4.0, BUN 17, creatinine 1.28. White count 5.6, hemogl obin 9.9, 9.3, platelet count is 407,000. ASSESSMENT AND PLAN: 1. Nonoliguric acute kidney injury with unknown baseline creatinine. Etiology of acute kidney inju ry is secondary to urinary tract infection and septic acute kidney injury. Renal function is improv ed and stabilized. Continue current treatment plan, supportive care, renally dose medications, avoi d nephrotoxins. 2. Anemia. Continue to monitor hemoglobin and hematocrit levels. 3. Mineral bone disorder. Continue to monitor calcium and phosphate levels. 4. Lower extremity cellulitis. The patient is status post incision and drainage. Continue wound c are, continue IV antibiotics. 5. Morbid obesity. Continue dietary modification. Dictated By: KIMBERLY MERCADO/HANNY Conf#: [id number] DID#: [id number]
--- NOTE | 2016-08-09 13:06 | CONS ---
Date/Time of Note Date/Time of Note DATE: 08/09/16 TIME: 13:06 Assessment/Plan Assessment/Plan Chief Complaint/Hosp Course SUBJECTIVE: No acute changes. Afebrile, sleeping, looks comfortable ANTIMICROBIALS: Vancomycin OBJECTIVE: GENERAL: This is a morbidly obese, well-developed, middle-aged white woman in no distress. HEENT: Head atraumatic, normocephalic. Sclerae anicteric. Buccal mucosa pink. NECK: Obese. CHEST: Rise symmetrical. Breath sounds clear. HEART: S1, S2. ABDOMEN: Soft, bowel tones present. EXTREMITIES: With right lower extremity edema and dressing intact. ASSESSMENT: 1. Right lower extremity cellulitis. 2. Morbid obesity. 3. Systemic inflammatory response syndrome with low grade fevers and leukocytosis. 4. Acute kidney injury, possible chronic kidney disease. 5. SIRS 2 to #1 PLAN: Remains stable, continue abx/ LE elevation, podiatry rec-s DW patient Problems: Consultation Date/Type/Reason Admit Date/Time Jul 23, 2016 at 15:05 Initial Consult Date 07/24/16 Type of Consultation: ID Exam/Review of Systems Vital Signs Vitals Vital Signs Date Time Temp Pulse Resp B/P Pulse Ox O2 Delivery O2 Flow Rate FiO2 08/09/16 08:20 98.2 72 18 144/79 96 08/08/16 20:00 Room Air Intake and Output 08/08/16 08/08/16 08/09/16 15:00 23:00 07:00 Intake Total 500 ml 640 ml 1500 ml Balance 500 ml 640 ml 1500 ml Results Result Diagram: 08/09/16 0642 08/09/16 0642 Results 24 hrs Laboratory Tests Test 08/09/16 06:42 Anion Gap 15 Basophils # 0.1 Basophils % 2.5 H Blood Morphology Comment Blood Urea Nitrogen 17 Calcium Level 7.9 L Carbon Dioxide Level 23 Chloride Level 108 Creatinine 1.28 H Eosinophils # 0.1 Eosinophils % 1.9 Glucose Level 84 Hematocrit 29.3 L Hemoglobin 9.9 L Lymphocytes # 2.3 Lymphocytes % 40.3 Mean Corpuscular Hemoglobin 29.8 Mean Corpuscular Hemoglobin Concent 33.9 Mean Corpuscular Volume 88.0 Mean Platelet Volume 8.0 Monocytes # 0.4 Monocytes % 7.9 Neutrophils # 2.7 Neutrophils % 47.4 Nucleated Red Blood Cells # 0.0 Nucleated Red Blood Cells % 0.0 Platelet Count 407 Potassium Level 4.0 Red Blood Count 3.33 L Red Cell Distribution Width 15.1 H Sodium Level 142 White Blood Count 5.6 # Medications Medications Current Medications Ondansetron HCl (Zofran Inj) 4 mg Q6H PRN IV NAUSEA AND/OR VOMITING Last administered on 07/27/16 09:06; Admin Dose 4 MG; Start 07/23/16 at 17:00 Acetaminophen (Tylenol Tab) 650 mg Q6H PRN PO PAIN LEVEL 1-3 OR FEVER Last administered on 08/04/16 22:51; Admin Dose 650 MG; Start 07/23/16 at 17:00 Docusate Sodium (Colace) 100 mg Q12H PRN PO CONSTIPATION Last administered on 14:13; Admin Dose 100 MG; Start 07/23/16 at 17:00 Heparin Sodium (Porcine) (Heparin (5000 Units/0.5 ml)) 5,000 unit Q12 SC Last administered on 08/09/16 09:00; Admin Dose 5,000 UNIT; Start 07/23/16 at 21:00 Fish Oil (Fish Oil) 1,000 mg BID PO Last administered on 08/09/16 08:30; Admin Dose 1,000 MG; Start 07/24/16 at 10:00 Acetaminophen/ Hydrocodone Bitart ([place] (7.5-325)) 1 tab Q4H PRN PO PAIN LEVEL 4-6 Last administered on 08/07/16 22:06; Admin Dose 1 TAB; Start 07/24/16 at 11:00 Famotidine (Pepcid) 20 mg Q24H PO Last administered on 08/08/16 13:59; Admin Dose 20 MG; Start 07/24/16 at 14:00 Silver Sulfadiazine (Thermazene 1% 25 Gm) 1 applic DAILY TOP Last administered on 08/09/16 08:31; Admin Dose 1 APPLIC; Start 07/26/16 at 17:00 Vitamin A/Vitamin D (Vitamin A & D Oint) 1 applic DAILY PRN TOP DRY MOUTH Last administered on 07/27/16 15:10; Admin Dose 1 APPLIC; Start 07/27/16 at 14:00 Lorazepam (Ativan) 1 mg Q4 PRN IV ANXIETY Last administered on 08/07/16 14:02 ; Admin Dose 1 MG; Start 07/31/16 at 22:00 Miscellaneous Information 08/07 07AM: RN GAVE TO... BID@,16 XX ; Start 08/07 at 10:00 Buspirone HCl (Buspar) 10 mg TID PO Last administered on 08/09/16 08:30; Admin Dose 10 MG; Start 08/07/16 at 21:00 Trazodone HCl (Desyrel) 100 mg HS PO Last administered on 08/08/16 20:37; Admin Dose 100 MG; Start 08/07/16 at 21:00 Morphine Sulfate (morphine) 2 mg Q4H PRN IV SEVERE PAIN LEVEL 7-10; Start 08/07 at 17:00 Zolpidem Tartrate 5 mg 5 mg QHS PRN PO SLEEP Last administered on 08/09/16 00: 49; Admin Dose 5 MG; Start 08/07/16 at 16:30 Vancomycin HCl/ Sodium Chloride (Vancocin/NS) 250 ml @ 83.333 mls/ hr Q24H IVPB Last administered on 08/09/16 05:33; Admin Dose 83.333 MLS/HR; Start at 06:00 JEFF JENKINS NP Aug 09, 2016 13:06
[2016-08-09] MEDS: FAMOTIDINE 20 MG TAB PO SCH (13:46)
--- NOTE | 2016-08-09 13:52 | PN ---
Date/Time of Note Date/Time of Note DATE: 08/09/16 TIME: 13:48 Assessment/Plan VTE Prophylaxis VTE Prophylaxis Intervention: SCD's Lines/Catheters IV Catheter Type (from Nrs): Peripheral IV Urinary Cath still in place: No Assessment/Plan Assessment/Plan 31F with: 1. Right lower extremity cellulitis, improving, now on vanco only Follow-up podiatry and infectious disease doctor recommendations Status post Multiple percutaneous aspirations of the right dorsal foot and medial ankle, drainage of sanguineous exudate by podiatry. Follow-up culture and sensitivity 2. Acute renal insufficiency: improved and stable 3. Anion gap metabolic acidosis 07/22 #1 : resolved 4. Morbid obesity BMI 60 5. Dyslipidemia, continue medical management 6. Hallucinations- resolved 7. DAVID : now stable on home meds PLAN: Will have podiatry review patient / continue BID wound dressing / continue abx. Disposition when cleared by podiatry. manager hvac for insurance Aid Subjective 24 Hr Interval Summary Free Text/Dictation Patient seen and examined. doing well, no more hallucinations, no new complaints Nursing has concerns about the wound Exam/Review of Systems Vital Signs Vitals Vital Signs Date Time Temp Pulse Resp B/P Pulse Ox O2 Delivery O2 Flow Rate FiO2 08/09/16 08:20 98.2 72 18 144/79 96 08/08/16 20:00 Room Air Intake and Output 08/08/16 08/08/16 08/09/16 15:00 23:00 07:00 Intake Total 500 ml 640 ml 1500 ml Balance 500 ml 640 ml 1500 ml Exam General: no acute distress, alert Chest: Normal expansion of the thorax during inspiration Lungs: Clear to auscultation bilaterally Heart: Normal S1-S2, Regular rhythm and rate. Abdomen: Soft , nontender, nondistended , bowel sounds are present. Extremities: R Lower leg encase in dressing with cellulitis and ?foul smelling discharge Results Result Diagram: 08/09/16 0642 08/09/16 0642 Results 24 hrs Laboratory Tests Test 08/09/16 06:42 Anion Gap 15 Basophils # 0.1 Basophils % 2.5 H Blood Morphology Comment Blood Urea Nitrogen 17 Calcium Level 7.9 L Carbon Dioxide Level 23 Chloride Level 108 Creatinine 1.28 H Eosinophils # 0.1 Eosinophils % 1.9 Glucose Level 84 Hematocrit 29.3 L Hemoglobin 9.9 L Lymphocytes # 2.3 Lymphocytes % 40.3 Mean Corpuscular Hemoglobin 29.8 Mean Corpuscular Hemoglobin Concent 33.9 Mean Corpuscular Volume 88.0 Mean Platelet Volume 8.0 Monocytes # 0.4 Monocytes % 7.9 Neutrophils # 2.7 Neutrophils % 47.4 Nucleated Red Blood Cells # 0.0 Nucleated Red Blood Cells % 0.0 Platelet Count 407 Potassium Level 4.0 Red Blood Count 3.33 L Red Cell Distribution Width 15.1 H Sodium Level 142 White Blood Count 5.6 # Medications Medications Current Medications Ondansetron HCl (Zofran Inj) 4 mg Q6H PRN IV NAUSEA AND/OR VOMITING Last administered on 07/27/16 09:06; Admin Dose 4 MG; Start 07/23/16 at 17:00 Acetaminophen (Tylenol Tab) 650 mg Q6H PRN PO PAIN LEVEL 1-3 OR FEVER Last administered on 08/04/16 22:51; Admin Dose 650 MG; Start 07/23/16 at 17:00 Docusate Sodium (Colace) 100 mg Q12H PRN PO CONSTIPATION Last administered on 14:13; Admin Dose 100 MG; Start 07/23/16 at 17:00 Heparin Sodium (Porcine) (Heparin (5000 Units/0.5 ml)) 5,000 unit Q12 SC Last administered on 08/09/16 09:00; Admin Dose 5,000 UNIT; Start 07/23/16 at 21:00 Fish Oil (Fish Oil) 1,000 mg BID PO Last administered on 08/09/16 08:30; Admin Dose 1,000 MG; Start 07/24/16 at 10:00 Acetaminophen/ Hydrocodone Bitart ([place] (7.5-325)) 1 tab Q4H PRN PO PAIN LEVEL 4-6 Last administered on 08/07/16 22:06; Admin Dose 1 TAB; Start 07/24/16 at 11:00 Famotidine (Pepcid) 20 mg Q24H PO Last administered on 08/09/16 13:46; Admin Dose 20 MG; Start 07/24/16 at 14:00 Silver Sulfadiazine (Thermazene 1% 25 Gm) 1 applic DAILY TOP Last administered on 08/09/16 08:31; Admin Dose 1 APPLIC; Start 07/26/16 at 17:00 Vitamin A/Vitamin D (Vitamin A & D Oint) 1 applic DAILY PRN TOP DRY MOUTH Last administered on 07/27/16 15:10; Admin Dose 1 APPLIC; Start 07/27/16 at 14:00 Lorazepam (Ativan) 1 mg Q4 PRN IV ANXIETY Last administered on 08/07/16 14:02 ; Admin Dose 1 MG; Start 07/31/16 at 22:00 Miscellaneous Information 08/07 07AM: RN GAVE TO... BID@10,16 XX ; Start 08/07 at 10:00 Buspirone HCl (Buspar) 10 mg TID PO Last administered on 08/09/16 13:46; Admin Dose 10 MG; Start 08/07/16 at 21:00 Trazodone HCl (Desyrel) 100 mg HS PO Last administered on 08/08/16 20:37; Admin Dose 100 MG; Start 08/07/16 at 21:00 Morphine Sulfate (morphine) 2 mg Q4H PRN IV SEVERE PAIN LEVEL 7-10; Start 08/07 at 17:00 Zolpidem Tartrate 5 mg 5 mg QHS PRN PO SLEEP Last administered on 08/09/16 00: 49; Admin Dose 5 MG; Start 08/07/16 at 16:30 Vancomycin HCl/ Sodium Chloride (Vancocin/NS) 250 ml @ 83.333 mls/ hr Q24H IVPB Last administered on 08/09/16 05:33; Admin Dose 83.333 MLS/HR; Start at 06:00 ALEX WALL Aug 09, 2016 13:52
[2016-08-09 19:00] VITALS: BP 169/79; RESP 20
[2016-08-09] MEDS ORDERED: HEPARIN 5,000 UNIT/0.5 ML SYG SC SCH (21:00)
[2016-08-09] MEDS: traZODone 100 MG TAB PO SCH (21:47)
[2016-08-09] MEDS ORDERED: DIPHENHYDRAMINE 25 MG CAP PO PRN (23:00)
[2016-08-10] MEDS: VANCOMYCIN 1.5 GM in SOD CHLORIDE 0.9% 250 ML IVPB SCH (06:01)
[2016-08-10 08:00] VITALS: BP 110/57; RESP 20
[2016-08-10] MEDS: BUSPIRONE 10 MG TAB PO SCH ×3 (08:35→21:48)
[2016-08-10] MEDS: FISH OIL 1,000 MG CAP PO SCH ×2 (08:35→21:48)
[2016-08-10] MEDS: SILVER SULFADIAZINE 1% 25 GM CR TOP SCH (08:36)
[2016-08-10] MEDS: HEPARIN 5,000 UNIT/0.5 ML SYG SC SCH ×2 (08:44→23:42)
[2016-08-10 08:49] LABS: POTASSIUM 4.2 mmol/L (3.5-5.1)
[2016-08-10 08:52] LABS: CREATININE 1.33 mg/dl (0.44-1.00)
[2016-08-10 08:53] LABS: CALCIUM 8.5 mg/dl (8.4-10.2)
[2016-08-10 09:04] LABS: BASOPHIL # 0.2 10^3/ul (0.0-0.1); BASOPHILS % 3.5 % (0.0-2.0); EOSINOPHILS # 0.1 10^3/ul (0.0-0.5); EOSINOPHILS % 2.7 % (0.0-7.0); HEMATOCRIT 31.6 % (37.0-47.0); HEMOGLOBIN 10.6 g/dl (12.0-16.0); LYMPHOCYTES % 38.7 % (15.0-51.0); MEAN CORPUSCULAR HEMOGLOBIN 29.9 pg (29.0-33.0); MEAN CORPUSCULAR HGB CONC 33.5 g/dl (32.0-37.0); MEAN PLATELET VOLUME 8.4 fl (7.4-10.4); MONOCYTE # 0.5 10^3/ul (0.3-0.9); MONOCYTES % 10.1 % (0.0-11.0); NEUTROPHIL # 2.3 10^3/ul (1.6-7.5); PLATELET COUNT 399 10^3/UL (140-440); RED BLOOD COUNT 3.55 10^6/ul (4.20-5.40); RED CELL DISTRIBUTION WIDTH 15.6 % (11.5-14.5); UNCORRECTED WBC 5.2 10^3/ul (4.8-10.8); WHITE BLOOD COUNT 5.2 10^3/ul (4.8-10.8)
[2016-08-10 09:15] LABS: CONDITION 1; LH ANALYZER COMMENTS 1
--- NOTE | 2016-08-10 11:34 | PN ---
DATE: 08/10/2016 SUBJECTIVE: The patient is stable, no acute events overnight. No fevers, chills, nausea, vomiting, no shortness of breath. OBJECTIVE: VITAL SIGNS: Blood pressure is 110/57, respirations 20, pulse 53, temperature 97.9. HEENT: Head is normocephalic. NECK: Supple. HEART: Regular rate. LUNGS: Show diminished breath sounds at the base. ABDOMEN: Soft, nontender to palpation. No rebound or guarding. EXTREMITIES: Negative for clubbing, cyanosis, or edema on the left leg. Right lower extremity has dressing clean, dry and intact. DERMATOLOGIC: No rashes. MUSCULOSKELETAL: No joint effusions. NEUROLOGIC: No change in exam. MEDICATIONS: The patient's medications have been reviewed. LABORATORY DATA: Reviewed. No new labs. ASSESSMENT AND PLAN: 1. Nonoliguric acute kidney injury with unknown baseline creatinine. Etiology of acute kidney inju ry is secondary to acute tubular necrosis and septic urinary tract infection. The patient's renal f unction has stabilized. Continue supportive care, renally dose all medications, avoid nephrotoxins. The patient's IV fluids were discontinued. 2. Anemia. Continue to monitor hemoglobin and hematocrit levels. 3. Mineral bone disorder. Continue to monitor calcium and phosphorus levels. 4. Lower extremity cellulitis. Continue current antibiotic regimen. The patient is status post in cision and drainage. 5. Morbid obesity. Continue dietary modification. Dictated By: KIMBERLY MERCADO/HANNY Conf#: [id number] DID#: [id number]
--- NOTE | 2016-08-10 12:38 | PN ---
DATE: 08/10/2016 SUBJECTIVE: No acute events overnight. No fevers. The patient is alert, lying comfortably in bed. LABORATORY DATA: WBC today 5.2, no shift, no bands. BUN 18, creatinine 1.33. ANTIMICROBIALS: The patient remains on vancomycin. PHYSICAL EXAMINATION: GENERAL: Morbidly obese, middle-aged white woman who is lying comfortably in bed. HEENT: Head atraumatic, normocephalic. Sclerae anicteric. Buccal mucosa pink. NECK: Supple. CHEST: Rise symmetrical. Breath sounds clear. HEART: S1, S2. ABDOMEN: Soft, bowel sounds present. EXTREMITIES: With right foot swelling resolved. ASSESSMENT: 1. Resolving right lower extremity cellulitis. 2. Morbid obesity. 3. Status post systemic inflammatory response syndrome. 4. Acute on chronic kidney disease. PLAN: The patient is doing better. Continue present care. Continue on current antimicrobials. An ticipate discharge on oral Bactrim or doxycycline. Follow with podiatry as an outpatient. Dictated By: JEFF JENKINS RECREATION OFFICER for BRYANT HERNANDEZ/HANNY Conf#: [id number] DID#: [id number]
[2016-08-10] MEDS: FAMOTIDINE 20 MG TAB PO SCH (12:49)
--- NOTE | 2016-08-10 18:01 | PN ---
Date/Time of Note Date/Time of Note DATE: 08/10/16 TIME: 17:34 Assessment/Plan VTE Prophylaxis VTE Prophylaxis Intervention: heparin Lines/Catheters IV Catheter Type (from [facility]): [place] Urinary Cath still in place: No Assessment/Plan Assessment/Plan 31F with: 1. Right lower extremity cellulitis, improving, now on vanco only Follow-up podiatry and infectious disease doctor recommendations Status post Multiple percutaneous aspirations of the right dorsal foot and medial ankle, drainage of sanguineous exudate by podiatry. 2. Acute renal insufficiency: improved and stable 3. Anion gap metabolic acidosis 07/22 #1 : resolved 4. Morbid obesity BMI 60 5. Dyslipidemia, continue medical management 6. Hallucinations- resolved 7. DAVID : now stable on home meds PLAN: Continue BID wound dressing / continue abx / Patient still needs aggressive wound care and keep leg elevated discharge when cleared by podiatry. Subjective 24 Hr Interval Summary Free Text/Dictation Patient seen and examined. no new issues wound reviewed with nursing staff Exam/Review of Systems Vital Signs Vitals Vital Signs Date Time Temp Pulse Resp B/P Pulse Ox O2 Delivery O2 Flow Rate FiO2 08/10/16 08:00 97.9 53 20 110/57 97 08/08/16 20:00 Room Air Intake and Output 08/09/16 08/09/16 08/10/16 15:00 23:00 07:00 Intake Total 1580 ml Output Total 1900 ml Balance -320 ml Exam Constitutional: alert, obese, oriented Psych: nl mood/affect Head: normocephalic ENMT: mucosa pink and moist Neck: supple Respiratory: clear to auscultation Cardiovascular: regular rate and rhythm Gastrointestinal: bowel sounds, non-tender, soft Extremities: other (L mid leg with circufrential cellulitis and epidermal wound and sloughing, quite dry in most areas covered in betadine) Neurological: nl mental status, No focal weakness Results Result Diagram: 08/10/16 0804 08/10/16 0809 Results 24 hrs Laboratory Tests Test 08/10/16 08:04 08/10/16 08:09 Basophils # 0.2 H Basophils % 3.5 H Blood Morphology Comment Eosinophils # 0.1 Eosinophils % 2.7 Hematocrit 31.6 L Hemoglobin 10.6 L Lymphocytes # 2.0 Lymphocytes % 38.7 Mean Corpuscular Hemoglobin 29.9 Mean Corpuscular Hemoglobin Concent 33.5 Mean Corpuscular Volume 89.0 Mean Platelet Volume 8.4 Monocytes # 0.5 Monocytes % 10.1 Neutrophils # 2.3 Neutrophils % 45.0 Nucleated Red Blood Cells # 0.0 Nucleated Red Blood Cells % 0.0 Platelet Count 399 Red Blood Count 3.55 L Red Cell Distribution Width 15.6 H White Blood Count 5.2 Anion Gap 13 Blood Urea Nitrogen 18 Calcium Level 8.5 Carbon Dioxide Level 27 Chloride Level 104 Creatinine 1.33 H Glucose Level 88 Potassium Level 4.2 Sodium Level 140 Medications Medications Current Medications Ondansetron HCl (Zofran Inj) 4 mg Q6H PRN IV NAUSEA AND/OR VOMITING Last administered on 07/27/16 09:06; Admin Dose 4 MG; Start 07/23/16 at 17:00 Acetaminophen (Tylenol Tab) 650 mg Q6H PRN PO PAIN LEVEL 1-3 OR FEVER Last administered on 08/04/16 22:51; Admin Dose 650 MG; Start 07/23/16 at 17:00 Docusate Sodium (Colace) 100 mg Q12H PRN PO CONSTIPATION Last administered on 14:13; Admin Dose 100 MG; Start 07/23/16 at 17:00 Heparin Sodium (Porcine) (Heparin (5000 Units/0.5 ml)) 5,000 unit Q12 SC Last administered on 08/10/16 08:44; Admin Dose 5,000 UNIT; Start 07/23/16 at 21:00 Fish Oil (Fish Oil) 1,000 mg BID PO Last administered on 08/10/16 08:35; Admin Dose 1,000 MG; Start 07/24/16 at 10:00 Acetaminophen/ Hydrocodone Bitart ([place] (7.5-325)) 1 tab Q4H PRN PO PAIN LEVEL 4-6 Last administered on 08/07/16 22:06; Admin Dose 1 TAB; Start 07/24/16 at 11:00 Famotidine (Pepcid) 20 mg Q24H PO Last administered on 08/10/16 12:49; Admin Dose 20 MG; Start 07/24/16 at 14:00 Silver Sulfadiazine (Thermazene 1% 25 Gm) 1 applic DAILY TOP Last administered on 08/10/16 08:36; Admin Dose 1 APPLIC; Start 07/26/16 at 17:00 Vitamin A/Vitamin D (Vitamin A & D Oint) 1 applic DAILY PRN TOP DRY MOUTH Last administered on 07/27/16 15:10; Admin Dose 1 APPLIC; Start 07/27/16 at 14:00 Lorazepam (Ativan) 1 mg Q4 PRN IV ANXIETY Last administered on 08/07/16 14:02 ; Admin Dose 1 MG; Start 07/31/16 at 22:00 Miscellaneous Information 08/07 07AM: RN GAVE TO... BID@10,16 XX ; Start 08/07 at 10:00 Buspirone HCl (Buspar) 10 mg TID PO Last administered on 08/10/16 12:49; Admin Dose 10 MG; Start 08/07/16 at 21:00 Trazodone HCl (Desyrel) 100 mg HS PO Last administered on 08/09/16 21:47; Admin Dose 100 MG; Start 08/07/16 at 21:00 Morphine Sulfate (morphine) 2 mg Q4H PRN IV SEVERE PAIN LEVEL 7-10; Start 08/07 at 17:00 Zolpidem Tartrate 5 mg 5 mg QHS PRN PO SLEEP Last administered on 08/09/16 00: 49; Admin Dose 5 MG; Start 08/07/16 at 16:30 Vancomycin HCl/ Sodium Chloride (Vancocin/NS) 250 ml @ 83.333 mls/ hr Q24H IVPB Last administered on 08/10/16 06:01; Admin Dose 83.333 MLS/HR; Start at 06:00 Diphenhydramine HCl (Benadryl) 25 mg Q6H PRN PO ITCHING; Start 08/09/16 at 23: 00 ALEX WALL Aug 10, 2016 17:44
[2016-08-10 20:20] VITALS: BP 153/77; RESP 18
[2016-08-10] MEDS: traZODone 100 MG TAB PO SCH (21:48)
[2016-08-11] MEDS: LORAZEPAM 2 MG INJ IV PRN (00:12)
[2016-08-11] MEDS: VANCOMYCIN 1.5 GM in SOD CHLORIDE 0.9% 250 ML IVPB SCH (05:54)
[2016-08-11 06:27] LABS: POTASSIUM 4.1 mmol/L (3.5-5.1)
[2016-08-11 06:30] LABS: CREATININE 1.6 mg/dl (0.44-1.00)
[2016-08-11 06:31] LABS: CALCIUM 8.3 mg/dl (8.4-10.2)
[2016-08-11 07:55] VITALS: BP 119/58; RESP 22
[2016-08-11 09:00] LABS: BASOPHIL # 0.1 10^3/ul (0.0-0.1); BASOPHILS % 2.4 % (0.0-2.0); EOSINOPHILS # 0.2 10^3/ul (0.0-0.5); EOSINOPHILS % 2.9 % (0.0-7.0); HEMATOCRIT 31.7 % (37.0-47.0); HEMOGLOBIN 10.7 g/dl (12.0-16.0); LYMPHOCYTES # 2.2 10^3/ul (0.8-2.9); LYMPHOCYTES % 40.5 % (15.0-51.0); MEAN CORPUSCULAR HEMOGLOBIN 30.1 pg (29.0-33.0); MEAN CORPUSCULAR HGB CONC 33.8 g/dl (32.0-37.0); MEAN CORPUSCULAR VOLUME 89.1 fl (82.0-101.0); MEAN PLATELET VOLUME 8.7 fl (7.4-10.4); MONOCYTE # 0.5 10^3/ul (0.3-0.9); NEUTROPHIL # 2.5 10^3/ul (1.6-7.5); NEUTROPHILS % 45.2 % (39.0-77.0); PLATELET COUNT 364 10^3/UL (140-440); RED BLOOD COUNT 3.56 10^6/ul (4.20-5.40); RED CELL DISTRIBUTION WIDTH 15.6 % (11.5-14.5); UNCORRECTED WBC 5.4 10^3/ul (4.8-10.8); WHITE BLOOD COUNT 5.4 10^3/ul (4.8-10.8)
[2016-08-11 09:06] LABS: CONDITION 1; LH ANALYZER COMMENTS 1
[2016-08-11] MEDS: BUSPIRONE 10 MG TAB PO SCH ×2 (09:31→12:45)
[2016-08-11] MEDS: FISH OIL 1,000 MG CAP PO SCH (09:31)
[2016-08-11] MEDS: SILVER SULFADIAZINE 1% 25 GM CR TOP SCH (09:32)
[2016-08-11] MEDS: HEPARIN 5,000 UNIT/0.5 ML SYG SC SCH (09:35)
--- NOTE | 2016-08-11 11:04 | PN ---
DATE: 08/11/2016 SUBJECTIVE: The patient is stable, no acute events overnight. No fevers, chills, nausea, vomiting, no shortness of breath. OBJECTIVE: VITAL SIGNS: Blood pressure 119/58, respiration is 20, pulse 61, temperature 97.7. HEENT: Head is normocephalic. NECK: Supple. HEART: Regular rate. LUNGS: Show diminished breath sounds at the base. ABDOMEN: Soft, nontender to palpation. No rebound or guarding. EXTREMITIES: Negative for clubbing, cyanosis, no edema on the left leg. Right lower extremity has dressing clean, dry and intact. DERMATOLOGIC: No rashes. MUSCULOSKELETAL: No joint effusions. NEUROLOGIC: No change in exam. MEDICATIONS: The patient's medications have been reviewed. LABORATORY DATA: Shows sodium 141, potassium 4.0, hematocrit 24, BUN 24, creatinine 1.60, white cou nt 5.4, hemoglobin 10.7, hematocrit 31.7, platelet count is 364. ASSESSMENT AND PLAN: 1. Nonoliguric acute kidney injury with unknown baseline creatinine. Etiology of acute kidney inju ry was initially secondary to acute tubular necrosis and septic acute kidney injury. The patient's renal function has improved; however, in the last 2 to 3 days there has been a decline in renal func tion. This may be to hemodynamics and vancomycin. Would follow up with a vancomycin trough level. We will repeat a renal panel in the a.m. if renal function should further decline, will consider di scontinuing vancomycin. 2. Anemia. Continue to monitor hemoglobin and hematocrit levels. 3. Mineral bone disorder. Continue to monitor calcium and phosphorus levels. 4. Lower extremity cellulitis. The patient is on antibiotic therapy. We will continue. The patie nt is status post incision and drainage. Continue wound care. 5. Morbid obesity. Continue dietary modification. Dictated By: KIMBERLY EGAN DO NR/HANNY Conf#: [id number] DID#: [id number]
[2016-08-11] MEDS ORDERED: DOCU-216 PO (11:52)
[2016-08-11] MEDS ORDERED: LACTINEX PO (11:52)
[2016-08-11] MEDS ORDERED: DOXY100T20 PO (11:52)
[2016-08-11] MEDS ORDERED: OMEG1CAP55 PO (11:52)
[2016-08-11] MEDS ORDERED: HYDR-3605 PO (11:53)
[2016-08-11] MEDS: FAMOTIDINE 20 MG TAB PO SCH (12:45)
--- NOTE | 2016-08-11 13:53 | PDOCDIS ---
Discharge Instructions DIAGNOSIS Discharge Diagnosis: R LE Cellulitis CONDITION Patient Condition: Stable HOME CARE INSTRUCTIONS: Special Diet: 1800 ada / low fta/chol ACTIVITY: Activity Restrictions: Slowly Increase Activity Rest between Activity Keep Limb Elevated FOLLOW UP/APPOINTMENTS Appointments Followup with your primary doctor within the next 1-2 weeks. If you don't have one please let someone know, we can give you resources that may help you pick one. You may also call your insurance company to assign one to you. Review your medication list with your nurse before leaving and if you need new prescriptions please let your nurse know. I may have made changes to your home medications or given you new prescriptions , please let your primary doctor know as well. Stay compliant with your medications and report any side effects to your PCP or pharmacist. Return to the ER if you have any concerns and cannot reach your doctors or call your insurance company, they usually have a nurse that can help you. OTHER ORDERS: Other Orders: Patient was admitted to our facility Jul 23 2016. Please excuse her from work from this time. Thanks!! SCHOOL/WORK RELEASE May return to School/Work on: Aug 18, 2016 May return to School/Work with: With Restrictions School/Work Release Comment: Patient needs to keep her R leg elevated at all times while sitting. ALEX WALL Aug 11, 2016 13:53
--- NOTE | 2016-08-13 02:53 | DS ---
DATE OF ADMISSION: 07/23/2016 DATE OF DISCHARGE: 08/11/2016 PRESENTING COMPLAINT: Right leg pain. ADMISSION DIAGNOSES: 1. Sepsis secondary to right lower extremity cellulitis. 2. Acute versus chronic kidney disease. 3. Anion gap metabolic acidosis, possibly secondary to lactic acidosis from sepsis. 4. Hyponatremia secondary to dehydration. 5. Morbid obesity with a BMI of 60.7 that was stable. 6. History of chronic depression. CONSULTS ON THE CASE: 1. Dr. Troy Melo for nephrology. 2. Dr. Yoel Link for infectious disease. 3. Dr. Charles Rae for podiatry. INTERVENTIONS: 1. The patient underwent lower extremity CT scan that showed a fluid collection over mid to lower l ateral leg, no evidence of abscess. Scattered edema. 2. Right lower extremity venous Doppler on the right leg that did not show any DVT. 3. She had a renal ultrasound that did not show any hydronephrosis. 4. She had an x-ray of the right foot, but there was no osseous abnormality and she had an ankle x- ray that also showed soft tissue swelling without osseous abnormality. The patient then underwent i ncision and drainage with aspiration of hematoma of the right foot and ankle by Dr. Rae 07/31/19 17. Cultures were sent from her wound and almost all wound cultures, including blood cultures, came back negative. The patient had a prolonged hospitalization course. The patient had a prolonged ho spital course because of the fact that she needed very aggressive wound care as well as due to her r enal failure and she had a prolonged course of IV antibiotics. She had no insurance and as such, [facility] provided as an [facility]. She basically came in with cellulitis and had her wound cleaned out surgically and she was treated aggressively with IV antibiotics while we closely monitor ed her renal function. Her wound was dressed twice a day throughout her hospitalization. All the c onsultants' recommendations were followed. The patient did very well. By the time of discharge, he r wound was healing nicely, even though she still has an extensive wound all the way from the upper wound of her right leg to just above her right ankle, but the wound was drying well and the patient was confident that she would be able to continue her own wound dressings at home. Her antibiotic re gimen was switched to oral and this was prescribed for her and she was sent home in stable condition . FINAL MEDICATIONS: 2. Colace 100 mg p.o. q.12. 3. Doxycycline 100 p.o. b.i.d. 4. [place] 1 tab q.4 p.r.n. 5. Lactinex 1 tab p.o. t.i.d. 6. Fish oil 1 gram b.i.d. 7. Buspirone 10 mg t.i.d. 6. Trazodone 100 mg p.o. at bedtime. Dictated By: ALEX WALL MD, BA/HANNY Conf#: [id number] DID#: [id number]
== END 2016-08-11 14:20 | disposition home or self-care (01) | DRG 871 ==
LOC: FTE 11:29 → MS2 15:05
PROVIDERS: ADMIT Hospitalist; ATTEND Hospitalist
PROC: 3E0234Z Introduction of Serum, Toxoid and Vaccine into Muscle, Percutaneous Approach (ICD-10-PCS; 2016-07-23)
PROC: 0H9MXZZ Drainage of Right Foot Skin, External Approach (ICD-10-PCS; principal; 2016-07-31)
DX: A41.9 Sepsis, unspecified organism (principal); N17.0 Acute kidney failure with tubular necrosis; G93.40 Encephalopathy, unspecified; E87.2 Acidosis; E87.1 Hypo-osmolality and hyponatremia; B37.3 Candidiasis of vulva and vagina; L03.115 Cellulitis of right lower limb; Z68.44 Body mass index [BMI] 60.0-69.9, adult; E66.01 Morbid (severe) obesity due to excess calories; E78.5 Hyperlipidemia, unspecified; E83.42 Hypomagnesemia; E83.51 Hypocalcemia; E87.6 Hypokalemia; E86.0 Dehydration; D64.9 Anemia, unspecified; N14.1 Nephropathy induced by other drugs, medicaments and biological substances; T39.395A Adverse effect of other nonsteroidal anti-inflammatory drugs [NSAID], initial encounter; F32.9 Major depressive disorder, single episode, unspecified; F41.1 Generalized anxiety disorder; Z88.0 Allergy status to penicillin; Z23 Encounter for immunization
CPT/HCPCS: 36415; 73600; 73630; 73700; 76775; 80048; 80053; 80061; 80202; 81001; 81003; 82043; 82565; 83036; 83605; 83735; 84100; 84155; 84300; 84436; 84479; 84520; 85025; 86703; 87040; 87070; 87081; 87086; 90471; 90686; 90715; 93971; 96374; 96375; 97110; 97116; 97163; 97530; J1335; J1956; J2060; J2270; J2405; J3370; J3475; J7030; J7040; J7050